=== PATIENT | female | born 1940 | race Caucasian/White ===

== ENCOUNTER 2020-09-24 10:48 | Outpatient (CLI) | payer MEDICARE, SELFPAY ==
[2020-09-24 11:13] LABS: Basophils Absolute Auto 0.1 K/mm3 (0.0-0.1); Basophils Percent Auto 1.2 % (0.2-1.2); Eosinophils Absolute Auto 0.1 K/mm3 (0-0.3); Eosinophils Percent Auto 1.4 % (0-4.4); Hematocrit 44.1 % (37.0-47.0); Hemoglobin 15.3 g/dL (12.0-15.0); Immature Granulocyte Absolute 0.02 K/mm3 (0.00-0.031); Immature Granulocyte Percent A 0.3 % (0-0.5); Lymphocytes Absolute Auto 1.76 K/mm3 (0.9-3.2); Lymphocytes Percent Auto 27.4 % (18.3-44.2); Mean Corpuscular HGB Conc 34.7 g/dl (32-36); Mean Corpuscular Hemoglobin 34.6 pg (26-34); Mean Corpuscular Volume 99.8 fl (80-100); Mean Platelet Volume 10.1 fl (7.4-10.4); Monocytes Absolute Auto 0.4 K/mm3 (0.1-0.6); Monocytes Percent Auto 5.5 % (2.6-8.5); Neutrophils Absolute Auto 4.1 K/mm3 (1.3-6.7); Neutrophils Percent Auto 64.2 % (45.5-73.1); Platelet Count Result 224 k/mm3 (150-375); Red Blood Count 4.42 M/mm3 (4.2-5.4); Red Cell Distribution Width 14.5 % (11.5-14.5); White Blood Count 6.4 K/mm3 (4.5-10.0)
[2020-09-24 11:23] LABS: Hemoglobin A1C 5.3 % (<5.7)
[2020-09-24 11:28] LABS: Rheumatoid Factor < 8.6 IU/ML (<12)
[2020-09-24 11:29] LABS: Alanine Aminotransferase 21 U/L (4-35); Albumin Level 4.6 g/dL (3.5-5.1); Alkaline Phosphatase 68 U/L (38-126); Anion Gap 10 mmol/L (8-16); Aspartate Amino Transferase 53 U/L (14-36); Bilirubin,Total 0.8 mg/dL (0.2-1.3); Blood Urea Nitrogen 17 mg/dL (7-17); Calcium 9.8 mg/dL (8.4-10.2); Carbon Dioxide 24 mmol/L (22-30); Chloride 96 mmol/L (98-107); Estimated Glomerular Filt Rate 48; Glucose 95 mg/dL (65-105); HDL Direct 103 mg/dL; Potassium 3.8 mmol/L (3.4-5.0); Sodium 130 mmol/L (137-145); Triglycerides 181 mg/dL (<150)
[2020-09-24 11:34] LABS: CRP < 0.5 mg/dL (<1.0)
[2020-09-24 11:37] LABS: LDL Cholesterol Direct 190 mg/dL
[2020-09-24 11:38] LABS: Erythrocyte Sedimentation Rate 14 mm/hr (0-20)
[2020-09-24 11:44] LABS: Cholesterol 338 mg/dL (0-200)
[2020-09-24 12:22] LABS: Free T4 Free Thyroxine < 0.07 ng/mL (0.78-2.19)
[2020-09-24 12:26] LABS: Vitamin D 25 Hydroxy < 12.8 ng/mL
[2020-09-26 06:09] LABS: Triiodothyronine T3 Free <0.5 pg/mL (2.3-4.2)
== END 2020-09-24 10:49 | disposition home or self-care (01) ==
LOC: ANHLAB 10:49
PROVIDERS: PCP Internal Medicine; Visit Provider Clinical Nurse Specialist
DX: Z13.228 Encounter for screening for other metabolic disorders (principal); E06.3 Autoimmune thyroiditis; R73.09 Other abnormal glucose; M25.50 Pain in unspecified joint; E55.9 Vitamin D deficiency, unspecified
CPT/HCPCS: 36415; 80053; 80061; 82306; 83036; 84439; 84443; 84481; 85025; 85652; 86038; 86140; 86430; 86769

== ENCOUNTER 2021-11-03 20:27 | Observation (INO) | payer MEDICARE, SELFPAY ==
[2021-11-03] VITALS (7 sets, daily range): BP systolic 98–131; BP diastolic 69–86; PULSE 75–93; RESP 14–18; TEMP 35.7–36.5; O2SAT 92–99; BMI 50.3
--- NOTE | ~2021-11-03 | XR_ITS ---
XR knee LT min 4V 11/03/2021 22:50 Indication: Left knee pain Procedure: 4 views left knee Comparison: 07/19/2017 Findings: There is moderate-severe osteoarthritis of the left knee. Small joint effusion. No acute fr acture or traumatic malalignment. Impression: 1: Progression of moderate-severe tricompartment osteoarthritis. 2: Small knee effusion. Reviewed, dictated and finalized at location A. E MAN Impression: 1: Progression of moderate-severe tricompartment osteoarthritis. 2: Small knee effusion.
--- NOTE | ~2021-11-03 | XR_ITS ---
EXAMINATION: XR chest 1V portable INDICATION: Shortness of breath TECHNIQUE: Portable AP chest at 2051 hours COMPARISON: 08/17/2017 FINDINGS: The patient is rotated. The lungs are free of acute opacities. There is no pleural effusion or pneumothorax. The cardiomediastinal silhouette is normal. There is chronic subsegmental atelectas is in the left lung base. IMPRESSION: 1. No acute cardiopulmonary abnormality. Reviewed, dictated and finalized at location F. OW REFINER
--- NOTE | ~2021-11-03 | CT_ITS ---
EXAMINATION: CTA chest PE protocol DATE: 11/04/2021 07:24 MAIL DISTRIBUTION SCHEME EXAMINER INDICATION: Shortness of breath TECHNIQUE: Computed tomographic angiography (CTA) of the chest was performed with 100 mL Omnipaque-35 0 intravenous contrast. The dose-length product was 890.41 mGy-cm. Maximum intensity projection 3D-re constructions of the aorta and other arteries were constructed by the technologist on a separate work station. Automated exposure control and iterative reconstruction technique were employed. COMPARISON: Chest dated 06/03/2022 FINDINGS: Study is technically adequate without evidence for pulmonary embolism. There is atheroscler osis of the aorta. Small pericardial effusion. There are surgical changes at the gastric fundus. No s ignificant pleural effusion. No thoracic lymphadenopathy. There is dependent atelectasis. No endobron chial lesion. No focal pneumonia, edema. IMPRESSION: 1. No evidence for pulmonary embolism. 2: Cardiomegaly with small pericardial effusion. Reviewed, dictated and finalized at location A. DISTRIBUTION SCHEME EXAMINER
--- NOTE | 2021-11-03 20:38 | ECG_ITS ---
Measurements Intervals [place] Rate: 91 P: 89 CA: 212 QRS: -3 QRSD: 85 T: 116 QT: 327 QTc: 404 Interpretive Statements SINUS OR ECTOPIC ATRIAL RHYTHM WITH FIRST DEGREE AV BLOCK LOW QRS VOLTAGE IN PRECORDIAL LEADS INFERIOR INFARCT, AGE INDETERMINATE ST-T WAVE ABNORMALITY IN HIGH LATERAL LEADS- CONSIDER ISCHEMIA BASELINE ARTIFACT- I, II, III, AVR, AVL, AVF, V1-V2 ABNORMAL ECG Electronically Signed On 11-04-2021 15:04:48 SOLO MUSICIAN by Feroz Kang D.O.
--- NOTE | 2021-11-03 20:54 | ED.GENADULT ---
HPI - General Adult General Chief complaint: Shortness of Breath/Dyspnea Stated complaint: SOB Time Seen by Provider: 11/03/21 20:30 History of Present Illness HPI narrative: 81-year-old female presents to the emergency department for evaluation of generalized weakness. Patient states she was sitting on her toilet and had onset of generalized weakness and was unable to get off of the toilet. Patient did call EMS for assistance. Upon arrival to the emerge department patient had a pulse ox of 88% on room air. Patient is not normally on oxygen. Patient complains of increased generalized weakness. Patient does report increased shortness of breath and dizziness. In discussion with the family they state that she already had her ENT follow-up and she is now scheduled to follow-up with a dynamic etching processor on Thursday. ENT diagnosis with that she had some edema of her lingular tonsils no other abnormality was noted. They state that they feel that she needs physical therapy and Occupational Therapy due to physical deconditioning. They also feel that her generalized weakness has worsened over the last few days and they were suspicious of a urinary tract infection. The patient is requesting admission with disposition to a assisted facility for PT and OT. Patient feels that she has physical deconditioning and needs placement at this time. Related Data Allergies Allergy/AdvReac Type Severity Reaction Status Date / Time No Known Allergies Allergy Verified 11/03/21 20:39 Review of Systems Review of Systems: CONSTITUTIONAL: Increased generalized weakness EYES: Denies visual changes, redness, or discharge. ENT: Denies rhinorrhea, congestion, sore throat, or otalgia. CARDIOVASCULAR: Denies chest pain, palpitations, or edema. RESPIRATORY: Intermittent shortness of breath. GASTROINTESTINAL: Denies abdominal pain, nausea, vomiting, or diarrhea. GENITOURINARY: Denies dysuria or hematuria. SKIN: Denies rash or itching. MUSCULOSKELETAL: Acute on chronic left knee pain NEUROLOGIC: Denies headache, numbness, or weakness. PSYCHIATRIC: Denies anxiety or depression. [facility] Past Medical History Medical History (Updated 11/04/21 @ 08:10 by AUDREY Sweeney) Chronic kidney disease Stage III with baseline creatinine between 1.1 and 1.2. Hyperlipidemia Hypertriglyceridemia Hypothyroidism, acquired, autoimmune Lower back pain Osteoarthritis of knees, bilateral Severe medial compartmental osteoarthritis Osteoarthritis of left hip Psoriasis Surgical History Surgical History (Updated 11/04/21 @ 03:13 by Rina Gonzalez DO) H/O: hysterectomy 1985 History of Nestor fundoplication (~2003) To repair a large esophageal hernia Hx of removal of ovary 1986 Family History Family History (Updated 11/04/21 @ 03:15 by Rina Gonzalez DO) Mother , At 89 years old Cerebrovascular accident Father , At 92 years old COPD (chronic obstructive pulmonary disease) Sibling Heart disease Cancer Social History Social History (Updated 11/04/21 @ 03:15 by Rina Gonzalez DO) Social History: She has been for over 50 years. 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 Her is 96 years old and still hold his medical license. They have 1 son. Code status: Full code Surrogate decision maker: Rancho Bhatia (son) Smoking status: Never smoker Alcohol intake: former Alcohol use details: She used to drink alcohol in moderation in social situations. She has not had an alcoholic beverage since 2019. Substance use: never Spiritual care concerns: No Exam Narrative: APPEARANCE: Well appearing, no pain, no distress, well-nourished. HEAD: normocephalic, atraumatic. EYES: PERRLA/EOMI, conjunctivae clear. NOSE: Normal no drainage EARS:TMS clear with good light reflex. THROAT: Pharynx clear, no exudate. NECK: Supple. No adenopathy, no masses. RESPIRATORY: Airway patent, respiration
--- NOTE | 2021-11-03 21:08 | PC.NURSE ---
CYDNEY sent to [facility] for records
[2021-11-03 21:26] LABS: Basophils Absolute Auto 0.1 K/mm3 (0.0-0.1); Basophils Percent Auto 0.5 % (0.2-1.2); Eosinophils Absolute Auto 0.1 K/mm3 (0-0.3); Eosinophils Percent Auto 0.5 % (0-4.4); Hematocrit 42.5 % (37.0-47.0); Hemoglobin 14.3 g/dL (12.0-15.0); Immature Granulocyte Absolute 0.07 K/mm3 (0.00-0.031); Immature Granulocyte Percent A 0.5 % (0-0.5); Lymphocytes Percent Auto 9.3 % (18.3-44.2); Mean Corpuscular HGB Conc 33.6 g/dl (32-36); Mean Corpuscular Hemoglobin 32.1 pg (26-34); Mean Corpuscular Volume 95.5 fl (80-100); Mean Platelet Volume 10.5 fl (7.4-10.4); Monocytes Absolute Auto 0.4 K/mm3 (0.1-0.6); Monocytes Percent Auto 2.9 % (2.6-8.5); Neutrophils Absolute Auto 11.1 K/mm3 (1.3-6.7); Neutrophils Percent Auto 86.3 % (45.5-73.1); Platelet Count Result 317 k/mm3 (150-375); Red Blood Count 4.45 M/mm3 (4.2-5.4); Red Cell Distribution Width 13.6 % (11.5-14.5); White Blood Count 12.9 K/mm3 (4.5-10.0)
[2021-11-03 21:48] LABS: Alanine Aminotransferase 19 U/L (4-35); Albumin Level 4.5 g/dL (3.5-5.1); Alkaline Phosphatase 61 U/L (38-126); Anion Gap 13 mmol/L (8-16); Aspartate Amino Transferase 37 U/L (14-36); Blood Urea Nitrogen 22 mg/dL (7-17); Calcium 9.4 mg/dL (8.4-10.2); Carbon Dioxide 22 mmol/L (22-30); Chloride 97 mmol/L (98-107); Estimated CRCL calculation 41 ml/min; Estimated Glomerular Filt Rate 43; Glucose 211 mg/dL (65-110); Sodium 132 mmol/L (137-145)
[2021-11-03 22:17] LABS: Add Urine Microscopic? YES; Appearance Urine Clear (Clear); Bilirubin Urine Negative (Negative); Blood Urine 1+ (Negative); Color Urine Yellow (Yellow); Glucose Urine UA Negative (Negative); Ketones Urine Trace mg/dL (Negative); Leukocyte Esterase Ur Negative LEU/UL (Negative); Nitrate Urine Negative (Negative); Protein Urine 1+ mg/dL (Negative); RBC Urine 0-2 /hpf (0-2); Specific Grav Ur 1.015 (1.001-1.035); Urobilinogen Urine Negative mg/dL (<2.0); WBC Urine 0-3 /hpf
[2021-11-03 22:48] LABS: SARS-CoV-2 RNA PCR Negative
--- NOTE | 2021-11-03 23:48 | ADMGEN ---
This patient, Annel Bhatia, was admitted to Medical Room 247-. Patient/family oriented to hospital policies and general routines including ID bracelet, bed and alarms, visiting hours, pain management, procedures, bathroom and other care routines, personal items, smoking policy, room service/diet, and visiting hours. Information on how to activate the Rapid Response Team has been discussed. Patient/Family are encouraged to report perceived risks to care and to ask questions if they do not understand what they are told or what they should do.
--- NOTE | 2021-11-04 02:50 | PM.IMHP ---
H&P: HPI History of Present Illness Date/Time: 11/04/21 02:50 Chief Complaint: Weakness Narrative: 81-year-old female past medical history of psoriasis, morbid obesity, likely obstructive sleep apnea, and severe medial compartment osteoarthritis of her knees who presented to the ER from home with multiple complaints. The patient reports that she has had decreased physical activity for for 5 years due to knee pain. She states that she is too large to have knee replacements. She was evaluated by Orthopedic surgery in 2019 who rim I commended she lose weight down to 190 lb to be considered for surgery. She states she is unable lose weight could she cannot be active and her weakness has progressed. She ambulates with a walker. Today she had more more severe pain in her left knee and was not able to compensate for weakness and was unable to get up off the toilet unassisted. She also reports some history of edema in her throat for which she is being evaluated at [facility] with ENT. The patient had a consult note in the computer from [facility] that reports the patient has lingular tonsillar hypertrophy. She has also had evaluation by pulmonology at [facility] and is supposed to follow-up on the . She reports shortness of breath and a small ongoing for months but has not changed significantly. Her shortness of breath is at rest and she reports orthopnea. She reports that her mobility is limited to the point that she cannot get up on her bed at home because it is too tall. She has been sleeping on the couch in the family room for what sounds like a long time. She denies any chest pain or palpitations. She does not have any significant lower extremity swelling. She states she had an echocardiogram several years ago with heart care group. Patient had not seen a primary care physician in many years until August 2021 when she diagnosed with hypothyroidism. She has chronic hearing loss and is being evaluated by ENT as outpatient. She has had chronic intermittent urinary incontinence for the last couple of years. She reports that most the time she will not even feel the urge and she has already lost control of her bladder. She has also been having enuresis. She denies any dysuria or hematuria. She has not been having any fevers or chills. She reports occasional episodes of explosive diarrhea but this is been intermittent and ongoing since 2013. He has been having a pulling stroke or stretching sensation across her lower abdomen that occurs depending on her body position. This discomfort is been ongoing for a long time is unchanged from baseline. She has received a COVID vaccine but has not received her booster. She thinks that she probably had COVID back when COVID started but never had confirmatory testing. Review of Systems Review of Systems: 12 systems were reviewed with pertinent positives and negatives per HPI. Except as documented in the HPI, all other systems were reviewed and are negative. [facility] Past Medical History Medical History (Updated 11/04/21 @ 03:28 by Rina Gonzalez DO) Chronic kidney disease Stage III with baseline creatinine between 1.1 and 1.2. Hyperlipidemia Hypertriglyceridemia Hypothyroidism, acquired, autoimmune Lower back pain Osteoarthritis of knees, bilateral Severe medial compartmental osteoarthritis Osteoarthritis of left hip Psoriasis Surgical History Surgical History (Updated 11/04/21 @ 03:13 by Rina Gonzalez DO) H/O: hysterectomy 1984 History of Nestor fundoplication (~2003) To repair a large esophageal hernia Hx of removal of ovary 1986 Family History Family History Mother , At 89 years old Cerebrovascular accident Father , At 92 years old COPD (chronic obstructive pulmonary disease) Sibling Heart disease Cancer Social History Social History (Updated 11/04/21 @ 03:15 by Rina Gonzalez DO) Social History: She has
[2021-11-04 05:38] LABS: Hemoglobin A1C 5.5 % (<5.7)
[2021-11-04 05:40] LABS: Anion Gap 13 mmol/L (8-16); Blood Urea Nitrogen 21 mg/dL (7-17); Calcium 9.4 mg/dL (8.4-10.2); Carbon Dioxide 22 mmol/L (22-30); Chloride 96 mmol/L (98-107); Estimated Glomerular Filt Rate 53; Glucose 76 mg/dL (65-110); Potassium 3.6 mmol/L (3.4-5.0); Sodium 131 mmol/L (137-145)
[2021-11-04 06:00] VITALS: BP 139/62; PULSE 67; RESP 18; TEMP 36.6; O2SAT 94
[2021-11-04] MEDS: LEVOTHYROXINE SODIUM 50 MCG TABLET PO (06:12)
[2021-11-04 06:38] LABS: NT Pro B Type Natriuretic Pept 481 pg/mL (5-100)
[2021-11-04 07:08] LABS: Free T4 Free Thyroxine Reflex < 0.07 ng/dL (0.78-2.19)
[2021-11-04] MEDS: ENOXAPARIN 40 MG/0.4 ML SYRINGE SUB-Q ×2 (08:08→21:47)
[2021-11-04] MEDS: EUCERIN CREAM 120 GM JAR 1 APPLIC TOPICAL ×2 (08:08→16:58)
[2021-11-04 08:18] VITALS: O2SAT 95
--- NOTE | 2021-11-04 08:45 | PM.IMPN ---
Progress Note: A&P Assessment and Plan (1) Osteoarthritis of knees, bilateral: Code(s): M17.0 - Bilateral primary osteoarthritis of knee Status: Acute Assessment and Plan: X-ray showed progression of moderate-severe tricompartment osteoarthritis ortho consult thank you for your help Pain regimen tylenol, morphine, and norco ordered Cortisone shots this am PT/OT SNF placement (2) General weakness: Code(s): R53.1 - Weakness Status: Acute Assessment and Plan: Reported weakness and decline in function Secondary to severe morbid obesity and chronic deconditioning Would like placement in a rehab facility and eventual home physical therapy Reports knee immobility cortisone shot today Ortho consult today PT/OT (3) Adult failure to thrive: Code(s): R62.7 - Adult failure to thrive Status: Acute Assessment and Plan: See above (4) Elevated glucose level: Code(s): R73.09 - Other abnormal glucose Status: Acute Assessment and Plan: Glucose upon arrival was 211 This morning 76 A1c 5.5 Trend glucose levels Seems to be controlled at this time (5) Obstructive sleep apnea: Code(s): G47.33 - Obstructive sleep apnea (adult) (pediatric) Status: Acute Assessment and Plan: Secondary to chronic obesity Apnea link ordered Consider further workup outpatient (6) Morbid obesity with BMI of 50.0-59.9, adult: Code(s): E66.01 - Morbid (severe) obesity due to excess calories; Z68.43 - Body mass index [BMI] 50.0-59.9, adult Status: Acute Assessment and Plan: Life style modification education provided Neck Pinner consult Low fat/Calorie diet Consider adding a GLP-1 at discharge (7) Cardiomegaly: Code(s): I51.7 - Cardiomegaly Status: Acute Assessment and Plan: Chest xray and CTA show cardiomegaly BNP elevated at 481 Echo ordered and pending Daily weights Strict I&O One time dose of 20mg IV lasix (8) Shortness of breath: Code(s): R06.02 - Shortness of breath Status: Acute Assessment and Plan: Multi contributory finding including obesity, immobility, cardiomegaly Echo ordered and pending Try one dose of lasix to see if that helps Trend SPO2 (9) Hypothyroidism, acquired, autoimmune: Code(s): E06.3 - Autoimmune thyroiditis Status: Acute Assessment and Plan: TSH 43.200 T4 <0.07 Consider increasing her home levothyroxine from 50mcg to 75mcg Recheck in 4-6 weeks Time Spent With Patient Time with patient: Greater than 35 minutes Subjective Date/time seen: 11/04/21 08:45 Interval history: Date/Time 11/04/21 0250 Narrative: 81-year-old female past medical history of psoriasis, morbid obesity, likely obstructive sleep apnea, and severe medial compartment osteoarthritis of her knees who presented to the ER from home with multiple complaints. The patient reports that she has had decreased physical activity for for 5 years due to knee pain. She states that she is too large to have knee replacements. She was evaluated by Orthopedic surgery in 2019 who rim I commended she lose weight down to 190 lb to be considered for surgery. She states she is unable lose weight could she cannot be active and her weakness has progressed. She ambulates with a walker. Today she had more more severe pain in her left knee and was not able to compensate for weakness and was unable to get up off the toilet unassisted. She also reports some history of edema in her throat for which she is being evaluated at [facility] with ENT. The patient had a consult note in the computer from [facility] that reports the patient has lingular tonsillar hypertrophy. She has also had evaluation by pulmonology at [facility] and is supposed to follow-up on the . She reports shortness of breath and a small ongoing for months bu
--- NOTE | 2021-11-04 08:45 | P.PNIM_ITS ---
Progress Note: A&P Assessment and Plan (1) Osteoarthritis of knees, bilateral: Code(s): M17.0 - Bilateral primary osteoarthritis of knee Status: Acute Assessment and Plan: * X-ray showed progression of moderate-severe tricompartment osteoarthritis * ortho consult thank you for your help * Pain regimen tylenol, morphine, and norco ordered * Cortisone shots this am * PT/OT * SNF placement (2) General weakness: Code(s): R53.1 - Weakness Status: Acute Assessment and Plan: * Reported weakness and decline in function * Secondary to severe morbid obesity and chronic deconditioning * Would like placement in a rehab facility and eventual home physical therapy * Reports knee immobility * cortisone shot today * Ortho consult today * PT/OT (3) Adult failure to thrive: Code(s): R62.7 - Adult failure to thrive Status: Acute Assessment and Plan: * See above (4) Elevated glucose level: Code(s): R73.09 - Other abnormal glucose Status: Acute Assessment and Plan: * Glucose upon arrival was 211 * This morning 76 * A1c 5.5 * Trend glucose levels * Seems to be controlled at this time (5) Obstructive sleep apnea: Code(s): G47.33 - Obstructive sleep apnea (adult) (pediatric) Status: Acute Assessment and Plan: * Secondary to chronic obesity * Apnea link ordered * Consider further workup outpatient (6) Morbid obesity with BMI of 50.0-59.9, adult: Code(s): E66.01 - Morbid (severe) obesity due to excess calories; Z68.43 - Body mass index [BMI] 50.0-59.9, adult Status: Acute Assessment and Plan: * Life style modification education provided * An/Ssn 2 4 Operator consult * Low fat/Calorie diet * Consider adding a GLP-1 at discharge (7) Cardiomegaly: Code(s): I51.7 - Cardiomegaly Status: Acute Assessment and Plan: * Chest xray and CTA show cardiomegaly * BNP elevated at 481 * Echo ordered and pending * Daily weights * Strict I&O * One time dose of 20mg IV lasix (8) Shortness of breath: Code(s): R06.02 - Shortness of breath Status: Acute Assessment and Plan: * Multi contributory finding including obesity, immobility, cardiomegaly * Echo ordered and pending * Try one dose of lasix to see if that helps * Trend SPO2 (9) Hypothyroidism, acquired, autoimmune: Code(s): E06.3 - Autoimmune thyroiditis Status: Acute Assessment and Plan: * TSH 43.200 * T4 <0.07 * Consider increasing her home levothyroxine from 50mcg to 75mcg * Recheck in 4-6 weeks Time Spent With Patient Time with patient: Greater than 35 minutes Subjective Date/time seen: 11/04/21 08:45 Interval history: Date/Time 11/04/21 0250 Narrative: 81-year-old female past medical history of psoriasis, morbid obesity, likely obstructive sleep apnea, and severe medial compartment osteoarthritis of her knees who presented to the ER from home with multiple complaints. The patient reports that she has had decreased physical activity for for 5 years due to knee pain. She states that she is too large to have knee replacements. She was evaluated by Orthopedic surgery in 2019 who rim I commended she lose weight down to 190 lb to be considered for surgery. She states she is unable lose weight could she cannot be ac
[2021-11-04] MEDS: MORPHINE SULFATE (*CRX) 2 MG/ML INJ 1 MG IV PUSH (09:48)
--- NOTE | 2021-11-04 11:07 | PCDIET ---
Nutrition consult for Morbid Obesity. See Nutritional Teaching Intervention. Thank you for the consult.
--- NOTE | 2021-11-04 11:11 | PCPTNOTE ---
Attempted PT eval - patient refused due to pain. RN aware
[2021-11-04] MEDS: FUROSEMIDE INJ 40 MG/4 ML VIAL 20 MG IV PUSH (12:33)
[2021-11-04 14:00] VITALS: BP 100/61; PULSE 69; RESP 18; TEMP 36.8; O2SAT 94
[2021-11-04] MEDS: HYDROcodone/acetaminophen (*CRX) 5-325 MG TABLET 1 TAB PO (15:50)
--- NOTE | 2021-11-04 16:55 | PM.CNOR ---
Assessment and Plan Assessment and plan (1) Osteoarthritis of knees, bilateral: Code(s): M17.0 - Bilateral primary osteoarthritis of knee Status: Acute Assessment and Plan: Severe bilateral knee osteoarthritis. Extremely obese. Difficulty mobilizing. Acute on chronic symptoms may be secondary to inflammatory arthropathy such as gout or pseudogout. I recommend bilateral intra-articular steroid injections. Risks discussed. Plan on the injections to be performed tomorrow morning. History of Present Illness HPI Consult date: 11/04/21 Consult reason: joint pain Chief complaint: Generalized weakness, shortness of breath, left kn Narrative: 81-year-old female complains of chronic bilateral knee pain. Acute severe exacerbation recently. History of chronic arthritic pains treated with cortisone injections in the past. She was unable to perform her physical therapy and get out of bed today. No other associated symptoms. No other new joint pains. Review of Systems Review of Systems: All systems reviewed & are unremarkable except as noted in HPI and below PMFSH Past Medical History Medical History Chronic kidney disease Stage III with baseline creatinine between 1.1 and 1.2. Hyperlipidemia Hypertriglyceridemia Hypothyroidism, acquired, autoimmune Lower back pain Osteoarthritis of knees, bilateral Severe medial compartmental osteoarthritis Osteoarthritis of left hip Psoriasis Surgical History Surgical History H/O: hysterectomy 1984 History of Nestor fundoplication (~2003) To repair a large esophageal hernia Hx of removal of ovary 1986 Family History Family History Mother , At 89 years old Cerebrovascular accident Father , At 92 years old COPD (chronic obstructive pulmonary disease) Sibling Heart disease Cancer Social History Social History Social History: She has been for over 50 years. 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 Her is 96 years old and still hold his medical license. They have 1 son. Code status: Full code Surrogate decision maker: Rancho Bhatia (son) Smoking status: Never smoker Alcohol intake: former Alcohol use details: She used to drink alcohol in moderation in social situations. She has not had an alcoholic beverage since 2019. Substance use: never Spiritual care concerns: No Meds Home Medications and Allergies Home Medications Medication Instructions Recorded Confirmed Type levothyroxine 50 mcg tablet 50 mcg PO DAILY #90 tablet 09/24/20 11/04/21 Rx Allergies Allergy/AdvReac Type Severity Reaction Status Date / Time No Known Allergies Allergy Verified 11/03/21 20:39 Vital Signs Vital Signs - 24 hr 11/03/21 20:31 11/03/21 21:50 11/03/21 21:51 Temperature 35.9 C L 35.7 C L Pulse Rate 93 84 85 Respiratory Rate 17 14 Blood Pressure 105/69 98/75 L Pulse Oximetry 92 95 11/03/21 21:52 11/03/21 22:45 11/03/21 23:26 Temperature 36.5 C Pulse Rate 82 75 Respiratory Rate 18 18 Blood Pressure 115/82 131/86 Pulse Oximetry 94 99 93 11/03/21 23:57 11/04/21 06:00 11/04/21 08:18 Temperature 36.0 C L 36.6 C Pulse Rate 78 67 Respiratory Rate 18 18 Blood Pressure 123/70 139/62 Pulse Oximetry 97 94 95 11/04/21 14:00 Temperature 36.8 C Pulse Rate 69 Respiratory Rate 18 Blood Pressure 100/61 Pulse Oximetry 94 Exam Narrative: Extremely obese. Alert and oriented. No distress. Bilateral knees with exquisite tenderness. Mild effusion. No warmth or erythema. No mass or other lesions. Distal edema. Purplish discoloration of both forefeet. Wiggles toes. Brief musculoskeletal survey normal. I reviewed the radiogr
[2021-11-04 20:30] VITALS: PULSE 70; O2SAT 94
[2021-11-04 22:00] VITALS: BP 109/68; PULSE 72; RESP 14; TEMP 36.7; O2SAT 97
--- NOTE | 2021-11-05 | ECHO_ITS ---
Patient Info Name: Annel Bhatia Age: 81 years : 1940 Gender: Female Ht: 59 in Wt: 249 lbs BSA: 2.25 m2 HR: 66 bpm BP: 112 / 65 mmHg Technical Quality: Good Exam Date: 11/05/2021 1:10 PM Exam Location: [facility] Patient Status: Outpatient Admit Date: 11/03/2021 Staff Ordering Physician: Thiago Gallardo Office Technology Professor: Mazin Grimes RDCS, RT Attending Provider: Rina Gonzalez DO Referring Physician: Sami STRICKLAND; Exam Type: CA echo dop color flow w con Study Info Indications I50.9 - Heart failure, unspecified Complete two-dimensional, color flow and Doppler transthoracic echocardiogram is performed with contrast to opacify the left ventricle and to improve the deliniation of the left ventricle endocardial borders. Summary 1. Left ventricular chamber dimension is normal. 2. Definity contrast administered improved wall motion interpretation. 3. Left ventricular systolic function is normal, estimated at 65-70%. 4. There is mildly increased left ventricular wall thickness. 5. The left ventricular diastolic function is grade I diastolic dysfunction. 6. E/e' 13 is mildly elevated. 7. Left atrial chamber dimension is moderately enlarged. 8. There is mild aortic valve sclerosis. 9. No pulmonary hypertension, estimated pulmonary arterial systolic pressure is 24 mmHg. Left Ventricle Definity contrast administered improved wall motion interpretation. E/e' 13 is mildly elevated. Left ventricular chamber dimension is normal. Left ventricular systolic function is normal, estimated at 65-70%. There is mildly increased left ventricular wall thickness. The left ventricular diastolic function is grade I diastolic dysfunction. Right Ventricle Right ventricular chamber dimension is normal. Right ventricular systolic function is normal. Left Atria Left atrial chamber dimension is moderately enlarged. Right Atria Right atrial chamber dimension is normal. Aortic Valve The aortic valve is trileaflet. There is mild aortic valve sclerosis. There is no aortic valve stenosis. There is no aortic valve regurgitation. Pulmonic Valve There is no pulmonic regurgitation. Mitral Valve There is no mitral valve stenosis. There is no mitral valve regurgitation. Tricuspid Valve There is no tricuspid valve regurgitation. No pulmonary hypertension, estimated pulmonary arterial systolic pressure is 24 mmHg. Pericardium/Pleural There is no pericardial effusion. Inferior Vena Cava Normal inferior vena cava with >50% collapse upon inspiration consistent with normal right atrial pressure, 5 mmHg. Aorta The aortic root size at the sinus of Valsalva is normal. Left Ventricular Outflow Tract Name Value Normal LVOT 2D LVOT Diameter 1.97 cm LVOT Doppler LVOT Peak Gradient 5 mmHg LVOT Mean Gradient 2 mmHg LVOT VTI 19.60 cm LVOT VTI/AV VTI Ratio 0.67 LVOT Stroke Volume 59.83 ml LVOT CO 4.01 l/min LVOT CI
--- NOTE | 2021-11-05 02:33 | PCRCNOTE ---
Apnea link was not done last night (11/04/21) due to patient taking a narcotic sleep aid. That was believed to be a contraindication. The RN informed me pt would not be on that med [facility] (11/05/21), therefore, the apnea link will be done then.
[2021-11-05 05:22] LABS: Basophils Absolute Auto 0.1 K/mm3 (0.0-0.1); Basophils Percent Auto 1.1 % (0.2-1.2); Eosinophils Absolute Auto 0.2 K/mm3 (0-0.3); Eosinophils Percent Auto 2.7 % (0-4.4); Hemoglobin 13.4 g/dL (12.0-15.0); Immature Granulocyte Absolute 0.02 K/mm3 (0.00-0.031); Immature Granulocyte Percent A 0.3 % (0-0.5); Lymphocytes Absolute Auto 1.85 K/mm3 (0.9-3.2); Lymphocytes Percent Auto 24.8 % (18.3-44.2); Mean Corpuscular HGB Conc 31.2 g/dl (32-36); Mean Corpuscular Hemoglobin 31.8 pg (26-34); Mean Corpuscular Volume 102.1 fl (80-100); Mean Platelet Volume 10.3 fl (7.4-10.4); Monocytes Absolute Auto 0.4 K/mm3 (0.1-0.6); Monocytes Percent Auto 5.8 % (2.6-8.5); Neutrophils Absolute Auto 4.9 K/mm3 (1.3-6.7); Neutrophils Percent Auto 65.3 % (45.5-73.1); Platelet Count Result 233 k/mm3 (150-375); Red Blood Count 4.21 M/mm3 (4.2-5.4); Red Cell Distribution Width 13.7 % (11.5-14.5); White Blood Count 7.5 K/mm3 (4.5-10.0)
[2021-11-05] MEDS: HYDROcodone/acetaminophen (*CRX) 5-325 MG TABLET 1 TAB PO (05:54)
[2021-11-05] MEDS: LEVOTHYROXINE SODIUM 75 MCG TABLET PO (05:55)
[2021-11-05 06:00] VITALS: BP 112/65; PULSE 64; RESP 20; TEMP 36.6; O2SAT 99
[2021-11-05 06:03] LABS: Alanine Aminotransferase 19 U/L (4-35); Albumin Level 4.3 g/dL (3.5-5.1); Alkaline Phosphatase 28 U/L (38-126); Anion Gap 18 mmol/L (8-16); Aspartate Amino Transferase 46 U/L (14-36); Bilirubin,Total 1.5 mg/dL (0.2-1.3); Blood Urea Nitrogen 22 mg/dL (7-17); Calcium 8.1 mg/dL (8.4-10.2); Carbon Dioxide 13 mmol/L (22-30); Chloride 97 mmol/L (98-107); Estimated Glomerular Filt Rate > 60; Glucose 98 mg/dL (65-110); Magnesium 2.1 mg/dL (1.6-2.3); Sodium 128 mmol/L (137-145)
--- NOTE | 2021-11-05 07:15 | PM.IMPN ---
Progress Note: A&P Assessment and Plan (1) Osteoarthritis of knees, bilateral: Code(s): M17.0 - Bilateral primary osteoarthritis of knee Status: Acute Assessment and Plan: X-ray showed progression of moderate-severe tricompartment osteoarthritis ortho consult thank you for your help Pain regimen tylenol, morphine, and norco ordered Cortisone shots this am PT/OT SNF placement (2) General weakness: Code(s): R53.1 - Weakness Status: Acute Assessment and Plan: Reported weakness and decline in function Secondary to severe morbid obesity and chronic deconditioning Would like placement in a rehab facility and eventual home physical therapy Reports knee immobility cortisone shot today Ortho consult today PT/OT (3) Adult failure to thrive: Code(s): R62.7 - Adult failure to thrive Status: Acute Assessment and Plan: See above (4) Elevated glucose level: Code(s): R73.09 - Other abnormal glucose Status: Acute Assessment and Plan: Glucose upon arrival was 211 This morning 76 A1c 5.5 Trend glucose levels Seems to be controlled at this time (5) Obstructive sleep apnea: Code(s): G47.33 - Obstructive sleep apnea (adult) (pediatric) Status: Acute Assessment and Plan: Secondary to chronic obesity Apnea link ordered Consider further workup outpatient (6) Morbid obesity with BMI of 50.0-59.9, adult: Code(s): E66.01 - Morbid (severe) obesity due to excess calories; Z68.43 - Body mass index [BMI] 50.0-59.9, adult Status: Acute Assessment and Plan: Life style modification education provided Production Wood Craftsman consult Low fat/Calorie diet Consider adding a GLP-1 at discharge (7) Cardiomegaly: Code(s): I51.7 - Cardiomegaly Status: Acute Assessment and Plan: Chest xray and CTA show cardiomegaly BNP elevated at 481 Echo ordered and pending Daily weights Strict I&O Hold on diuretics due to low sodium (8) Shortness of breath: Code(s): R06.02 - Shortness of breath Status: Acute Assessment and Plan: Multi contributory finding including obesity, immobility, cardiomegaly Echo ordered and pending Trend SPO2 (9) Hypothyroidism, acquired, autoimmune: Code(s): E06.3 - Autoimmune thyroiditis Status: Acute Assessment and Plan: TSH 43.200 T4 <0.07 Consider increasing her home levothyroxine from 50mcg to 75mcg Recheck in 4-6 weeks (10) Hyponatremia: Code(s): E87.1 - Hypo-osmolality and hyponatremia Status: Acute Assessment and Plan: Na 128 this am Run urine studies Hold on diuretics for now Consider IV fluids Subjective Date/time seen: 11/05/21 07:15 Interval history: Date/Time 11/04/21 0250 Narrative: 81-year-old female past medical history of psoriasis, morbid obesity, likely obstructive sleep apnea, and severe medial compartment osteoarthritis of her knees who presented to the ER from home with multiple complaints. The patient reports that she has had decreased physical activity for for 5 years due to knee pain. She states that she is too large to have knee replacements. She was evaluated by Orthopedic surgery in 2019 who rim I commended she lose weight down to 190 lb to be considered for surgery. She states she is unable lose weight could she cannot be active and her weakness has progressed. She ambulates with a walker. Today she had more more severe pain in her left knee and was not able to compensate for weakness and was unable to get up off the toilet unassisted. She also reports some history of edema in her throat for which she is being evaluated at [facility] with ENT. The patient had a consult note in the computer from [facility] that reports the patient has lingular tonsillar hypertrophy. She has also had evaluation by pulmonology
--- NOTE | 2021-11-05 07:15 | P.PNIM_ITS ---
Progress Note: A&P Assessment and Plan (1) Osteoarthritis of knees, bilateral: Code(s): M17.0 - Bilateral primary osteoarthritis of knee Status: Acute Assessment and Plan: * X-ray showed progression of moderate-severe tricompartment osteoarthritis * ortho consult thank you for your help * Pain regimen tylenol, morphine, and norco ordered * Cortisone shots this am * PT/OT * SNF placement (2) General weakness: Code(s): R53.1 - Weakness Status: Acute Assessment and Plan: * Reported weakness and decline in function * Secondary to severe morbid obesity and chronic deconditioning * Would like placement in a rehab facility and eventual home physical therapy * Reports knee immobility * cortisone shot today * Ortho consult today * PT/OT (3) Adult failure to thrive: Code(s): R62.7 - Adult failure to thrive Status: Acute Assessment and Plan: * See above (4) Elevated glucose level: Code(s): R73.09 - Other abnormal glucose Status: Acute Assessment and Plan: * Glucose upon arrival was 211 * This morning 76 * A1c 5.5 * Trend glucose levels * Seems to be controlled at this time (5) Obstructive sleep apnea: Code(s): G47.33 - Obstructive sleep apnea (adult) (pediatric) Status: Acute Assessment and Plan: * Secondary to chronic obesity * Apnea link ordered * Consider further workup outpatient (6) Morbid obesity with BMI of 50.0-59.9, adult: Code(s): E66.01 - Morbid (severe) obesity due to excess calories; Z68.43 - Body mass index [BMI] 50.0-59.9, adult Status: Acute Assessment and Plan: * Life style modification education provided * Agricultural Agent consult * Low fat/Calorie diet * Consider adding a GLP-1 at discharge (7) Cardiomegaly: Code(s): I51.7 - Cardiomegaly Status: Acute Assessment and Plan: * Chest xray and CTA show cardiomegaly * BNP elevated at 481 * Echo ordered and pending * Daily weights * Strict I&O * Hold on diuretics due to low sodium (8) Shortness of breath: Code(s): R06.02 - Shortness of breath Status: Acute Assessment and Plan: * Multi contributory finding including obesity, immobility, cardiomegaly * Echo ordered and pending * Trend SPO2 (9) Hypothyroidism, acquired, autoimmune: Code(s): E06.3 - Autoimmune thyroiditis Status: Acute Assessment and Plan: * TSH 43.200 * T4 <0.07 * Consider increasing her home levothyroxine from 50mcg to 75mcg * Recheck in 4-6 weeks (10) Hyponatremia: Code(s): E87.1 - Hypo-osmolality and hyponatremia Status: Acute Assessment and Plan: * Na 128 this am * Run urine studies * Hold on diuretics for now * Consider IV fluids Subjective Date/time seen: 11/05/21 07:15 Interval history: Date/Time 11/04/21 0250 Narrative: 81-year-old female past medical history of psoriasis, morbid obesity, likely obstructive sleep apnea, and severe medial compartment osteoarthritis of her knees who presented to the ER from home with multiple complaints. The patient reports that she has had decreased physical activity for for 5 years due to knee pain. She states that she is too large to have knee replacements. She was evaluated by Orthopedic surgery
[2021-11-05] MEDS: EUCERIN CREAM 120 GM JAR 1 APPLIC TOPICAL ×2 (08:28→16:33)
[2021-11-05] MEDS: ENOXAPARIN 40 MG/0.4 ML SYRINGE SUB-Q ×2 (08:31→20:04)
--- NOTE | 2021-11-05 11:00 | PM.PNORT ---
Progress Note: A&P Assessment and Plan (1) Osteoarthritis of knees, bilateral: Code(s): M17.0 - Bilateral primary osteoarthritis of knee Status: Acute (2) Morbid obesity with BMI of 50.0-59.9, adult: Code(s): E66.01 - Morbid (severe) obesity due to excess calories; Z68.43 - Body mass index [BMI] 50.0-59.9, adult Status: Acute Assessment and Plan: Severe bilateral knee osteoarthritis. Extremely obese. Difficulty mobilizing. Acute on chronic symptoms may be secondary to inflammatory arthropathy such as gout or pseudogout. Bilateral intra-articular steroid injections today. Patient tolerated injections well. Risks discussed. Discharge planning to rehab/SNF in process. Subjective Subjective Date/Time Seen: 11/05/21 11:00 Patient resting comfortably in bed. No new symptoms. Severe pain in her knees. Left worse then right. Sensitive to the touch. Review of Systems Review of Systems: All systems reviewed & are unremarkable except as noted in HPI and below Exam Narrative: Extremely obese. Alert and oriented. No distress. Bilateral knees with exquisite tenderness. Mild effusion. No warmth or erythema. No mass or other lesions. Distal edema. Purplish discoloration of both forefeet. Wiggles toes. Brief musculoskeletal survey normal. I reviewed the radiographs which show severe varus arthrosis. Objective Data Vital Signs Vital Signs: Vital Signs - 24 hr 11/04/21 14:00 11/04/21 20:30 11/04/21 22:00 Temperature 98.2 F 98.0 F Pulse Rate 69 70 72 Respiratory Rate 18 14 Blood Pressure 100/61 109/68 Pulse Oximetry 94 94 97 11/05/21 06:00 Temperature 97.9 F Pulse Rate 64 Respiratory Rate 20 Blood Pressure 112/65 Pulse Oximetry 99 Intake/Output Intake/Output: Intake & Output 11/02/21 11/03/21 11/04/21 11/05/21 23:59 23:59 23:59 23:59 Intake Total 1930 420 Output Total 300 Balance 1930 120 Meds/Results Medications: Active Medications Generic Name Dose Route Start Last Admin Trade Name Freq PRN Reason Stop Dose Admin Acetaminophen 1,000 mg 11/04/21 09:06 Acetaminophen 500 Mg Tablet PO Q6H PRN Mild Pain (1-3) or Fever Hydrocodone Bitart/Acetaminophen 1 tab 11/04/21 09:06 11/05/21 05:54 Hydrocodone/Acetaminophen (*Crx) 5-325 Mg Tablet PO 1 tab Q6H PRN Administration Pain Rated 4-6 Enoxaparin Sodium 40 mg 11/04/21 09:00 11/05/21 08:31 Enoxaparin 40 Mg/0.4 Ml Syringe SUB-Q 40 mg Q12HR SANKET Administration Levothyroxine Sodium 75 mcg 11/05/21 06:30 11/05/21 05:55 Levothyroxine Sodium 75 Mcg Tablet PO 75 mcg DAILY@0630 SANKET Administration Miconazole Nitrate 1 applic 11/04/21 09:00 11/05/21 08:28 Miconazole 2% Antifungal Ointment 56 Gm TOPICAL 1 applic Q12HR SANKET Administration Morphine Sulfate 1 mg 11/04/21 09:06 11/04/21 09:48 Morphine Sulfate (*Crx) 2 Mg/Ml Inj IV PUSH 1 mg Q4H PRN Administration Severe Pain (7-10) Multi-Ingred Cream/Lotion/Oil/Oint 1 applic 11/04/21 09:00 11/05/21 08:28 Eucerin Cream 120 Gm Jar TOPICAL 1 applic BID SANKET Administration Perflutren Lipid Microsphere 0 ml 11/05/21 07:12 Perflutren Lipid Microspheres 1.5 Ml Vial Diluted To 10 Ml Total Volume IV PUSH ONCE PRN adequate visualization Protocol Radiology Results: ITS Impressions Chest X-Ray 11/03/21 21:00 IMPRESSION: 1. No acute cardiopulmonary abnormality. Knee X-Ray 11/04/21 06:39 Impression: 1: Progression of moderate-severe tricompartment osteoarthritis. 2: Small knee effusion. Chest CTA 11/04/21 07:24 IMPRESSION: 1. No evidence for pulmonary embolism. 2: Cardiomegaly with small pericardial effusion. Labs Labs: Laboratory Results - last 24 hr 11/05/21 11/05/21 05:04 05:04 WBC 7.5 RBC 4.21 Hgb 13.4 Hct 43.0 MCV 102.1 H D MCH 31.8 MCHC 31.2 L RDW 13.7 Plt Count 233 MPV 10.3 Immature Gran % (
--- NOTE | 2021-11-05 11:21 | PM.OP ---
Procedure Note - Brief Procedure Note - Brief Date of procedure: 11/05/21 Pre-op diagnosis: Generalized weakness, shortness of breath, left kn Surgeon: NAHOMY Cuello Joint Aspiration/Injection Bilateral knees: Pre-procedure care: Consent was obtained, Procedures/risks were explained, Questions were answered, Correct patient identified and Correct side and site confirmed Position: Laying Site Prepped: chlorhexidine Injection Details Bilateral knee using manual palpation Injection: Depo-Medrol 80 given to each knee Sterile Dressing: Storm and Adhesive Post Procedure: Patient tolerated the procedure well
[2021-11-05] MEDS: PERFLUTREN LIPID MICROSPHERES 1.5 ML VIAL DILUTED TO 10 ML TOTAL VOLUME IV PUSH (13:35)
--- NOTE | 2021-11-05 13:36 | IVDEFINITY ---
Prior to administration of IV Definity the patient was educated on the risks and benefits of the imaging enhancing agent including potential adverse side effects. The patient verbalized understanding. Allergies were verified. No exclusion criteria were identified and at least one of the following inclusion criteria were met: 1) physician request, 2) patient technically difficult to image (per the [place] [employer] of Echocardiography guidelines of two or more segments not discernable within the apical view), or 3) questionable left ventricular function. ?
[2021-11-05 13:59] VITALS: BP 119/73; PULSE 63; RESP 18; TEMP 36.2; O2SAT 95
[2021-11-05 17:56] LABS: Creatinine Urine 57.4 mg/dL; Urea Random Urine 363 MG/DL
[2021-11-05 18:07] LABS: Sodium Urine Random 13 meq/L
[2021-11-05 19:39] VITALS: BP 114/54; PULSE 67; RESP 17; TEMP 37.1; O2SAT 95
[2021-11-05 22:36] VITALS: O2SAT 95
[2021-11-06 04:49] VITALS: BP 142/86; PULSE 72; RESP 16; TEMP 36.6; O2SAT 97
[2021-11-06] MEDS: LEVOTHYROXINE SODIUM 75 MCG TABLET PO (05:35)
[2021-11-06] MEDS: MORPHINE SULFATE (*CRX) 2 MG/ML INJ 1 MG IV PUSH (05:38)
[2021-11-06 05:53] LABS: Basophils Absolute Auto 0.1 K/mm3 (0.0-0.1); Basophils Percent Auto 0.6 % (0.2-1.2); Eosinophils Absolute Auto 0.2 K/mm3 (0-0.3); Eosinophils Percent Auto 1.9 % (0-4.4); Hematocrit 39.4 % (37.0-47.0); Hemoglobin 13.3 g/dL (12.0-15.0); Immature Granulocyte Absolute 0.04 K/mm3 (0.00-0.031); Immature Granulocyte Percent A 0.4 % (0-0.5); Lymphocytes Percent Auto 16.9 % (18.3-44.2); Mean Corpuscular HGB Conc 33.8 g/dl (32-36); Mean Corpuscular Hemoglobin 31.8 pg (26-34); Mean Corpuscular Volume 94.3 fl (80-100); Mean Platelet Volume 10.4 fl (7.4-10.4); Monocytes Absolute Auto 0.5 K/mm3 (0.1-0.6); Monocytes Percent Auto 5.7 % (2.6-8.5); Neutrophils Percent Auto 74.5 % (45.5-73.1); Platelet Count Result 276 k/mm3 (150-375); Red Blood Count 4.18 M/mm3 (4.2-5.4); Red Cell Distribution Width 13.2 % (11.5-14.5); White Blood Count 9.5 K/mm3 (4.5-10.0)
[2021-11-06 05:56] LABS: Alanine Aminotransferase 19 U/L (4-35); Albumin Level 4.1 g/dL (3.5-5.1); Alkaline Phosphatase 64 U/L (38-126); Anion Gap 10 mmol/L (8-16); Aspartate Amino Transferase 58 U/L (14-36); Bilirubin,Total 0.6 mg/dL (0.2-1.3); Blood Urea Nitrogen 18 mg/dL (7-17); Calcium 9.3 mg/dL (8.4-10.2); Carbon Dioxide 26 mmol/L (22-30); Chloride 99 mmol/L (98-107); Estimated Glomerular Filt Rate > 60; Glucose 99 mg/dL (65-110); Potassium 3.5 mmol/L (3.4-5.0); Sodium 135 mmol/L (137-145)
[2021-11-06] MEDS: ENOXAPARIN 40 MG/0.4 ML SYRINGE SUB-Q ×2 (08:36→20:02)
[2021-11-06] MEDS: EUCERIN CREAM 120 GM JAR 1 APPLIC TOPICAL ×2 (08:38→16:54)
--- NOTE | 2021-11-06 09:00 | P.PNIM_ITS ---
Progress Note: A&P Assessment and Plan (1) Osteoarthritis of knees, bilateral: Code(s): M17.0 - Bilateral primary osteoarthritis of knee Status: Acute Assessment and Plan: * X-ray showed progression of moderate-severe tricompartment osteoarthritis * ortho consult thank you for your help * Pain regimen tylenol, morphine, and norco ordered * Cortisone shots 11/05/21 * PT/OT * SNF placement (2) General weakness: Code(s): R53.1 - Weakness Status: Acute Assessment and Plan: * Reported weakness and decline in function * Secondary to severe morbid obesity and chronic deconditioning * Would like placement in a rehab facility and eventual home physical therapy * Reports knee immobility * cortisone shot 11/05/21 * Ortho consult * PT/OT (3) Adult failure to thrive: Code(s): R62.7 - Adult failure to thrive Status: Acute Assessment and Plan: * See above (4) Elevated glucose level: Code(s): R73.09 - Other abnormal glucose Status: Acute Assessment and Plan: * Glucose upon arrival was 211 * This morning 99 * A1c 5.5 * Trend glucose levels * Seems to be controlled at this time (5) Obstructive sleep apnea: Code(s): G47.33 - Obstructive sleep apnea (adult) (pediatric) Status: Acute Assessment and Plan: * Secondary to chronic obesity * Apnea link ordered * Consider further workup outpatient (6) Morbid obesity with BMI of 50.0-59.9, adult: Code(s): E66.01 - Morbid (severe) obesity due to excess calories; Z68.43 - Body mass index [BMI] 50.0-59.9, adult Status: Acute Assessment and Plan: * Life style modification education provided * [place] Compounder consult * Low fat/Calorie diet * Consider adding a GLP-1 at discharge (7) Cardiomegaly: Code(s): I51.7 - Cardiomegaly Status: Acute Assessment and Plan: * Chest xray and CTA show cardiomegaly * BNP elevated at 481 * Echo ordered and pending * Daily weights * Strict I&O * Hold on diuretics due to low sodium (8) Shortness of breath: Code(s): R06.02 - Shortness of breath Status: Acute Assessment and Plan: * Multi contributory finding including obesity, immobility, cardiomegaly * Echo ordered and pending * Trend SPO2 (9) Hypothyroidism, acquired, autoimmune: Code(s): E06.3 - Autoimmune thyroiditis Status: Acute Assessment and Plan: * TSH 43.200 * T4 <0.07 * Consider increasing her home levothyroxine from 50mcg to 75mcg * Recheck in 4-6 weeks (10) Hyponatremia: Code(s): E87.1 - Hypo-osmolality and hyponatremia Status: Acute Assessment and Plan: * Na 135 this am * Run urine studies Ur sodium 13, Urea 363, Cr 57.4 * Hold on diuretics for now * Consider IV fluids * Continue to trend Subjective Date/time seen: 11/06/21 0900 Interval history: Date/Time 11/04/21 0250 Narrative: 81-year-old female past medical history of psoriasis, morbid obesity, likely obstructive sleep apnea, and severe medial compartment osteoarthritis of her knees who presented to the ER from home with multiple complaints. The patient reports that she has had decreased physical activity for for 5 years due to knee pain. She states that she is too large to have knee repla
--- NOTE | 2021-11-06 09:00 | PM.IMPN ---
Progress Note: A&P Assessment and Plan (1) Osteoarthritis of knees, bilateral: Code(s): M17.0 - Bilateral primary osteoarthritis of knee Status: Acute Assessment and Plan: X-ray showed progression of moderate-severe tricompartment osteoarthritis ortho consult thank you for your help Pain regimen tylenol, morphine, and norco ordered Cortisone shots 11/05/21 PT/OT SNF placement (2) General weakness: Code(s): R53.1 - Weakness Status: Acute Assessment and Plan: Reported weakness and decline in function Secondary to severe morbid obesity and chronic deconditioning Would like placement in a rehab facility and eventual home physical therapy Reports knee immobility cortisone shot 11/05/21 Ortho consult PT/OT (3) Adult failure to thrive: Code(s): R62.7 - Adult failure to thrive Status: Acute Assessment and Plan: See above (4) Elevated glucose level: Code(s): R73.09 - Other abnormal glucose Status: Acute Assessment and Plan: Glucose upon arrival was 211 This morning 99 A1c 5.5 Trend glucose levels Seems to be controlled at this time (5) Obstructive sleep apnea: Code(s): G47.33 - Obstructive sleep apnea (adult) (pediatric) Status: Acute Assessment and Plan: Secondary to chronic obesity Apnea link ordered Consider further workup outpatient (6) Morbid obesity with BMI of 50.0-59.9, adult: Code(s): E66.01 - Morbid (severe) obesity due to excess calories; Z68.43 - Body mass index [BMI] 50.0-59.9, adult Status: Acute Assessment and Plan: Life style modification education provided Vegetable I Farmworker consult Low fat/Calorie diet Consider adding a GLP-1 at discharge (7) Cardiomegaly: Code(s): I51.7 - Cardiomegaly Status: Acute Assessment and Plan: Chest xray and CTA show cardiomegaly BNP elevated at 481 Echo ordered and pending Daily weights Strict I&O Hold on diuretics due to low sodium (8) Shortness of breath: Code(s): R06.02 - Shortness of breath Status: Acute Assessment and Plan: Multi contributory finding including obesity, immobility, cardiomegaly Echo ordered and pending Trend SPO2 (9) Hypothyroidism, acquired, autoimmune: Code(s): E06.3 - Autoimmune thyroiditis Status: Acute Assessment and Plan: TSH 43.200 T4 <0.07 Consider increasing her home levothyroxine from 50mcg to 75mcg Recheck in 4-6 weeks (10) Hyponatremia: Code(s): E87.1 - Hypo-osmolality and hyponatremia Status: Acute Assessment and Plan: Na 135 this am Run urine studies Ur sodium 13, Urea 363, Cr 57.4 Hold on diuretics for now Consider IV fluids Continue to trend Subjective Date/time seen: 11/06/21 0900 Interval history: Date/Time 11/04/21 0250 Narrative: 81-year-old female past medical history of psoriasis, morbid obesity, likely obstructive sleep apnea, and severe medial compartment osteoarthritis of her knees who presented to the ER from home with multiple complaints. The patient reports that she has had decreased physical activity for for 5 years due to knee pain. She states that she is too large to have knee replacements. She was evaluated by Orthopedic surgery in 2019 who rim I commended she lose weight down to 190 lb to be considered for surgery. She states she is unable lose weight could she cannot be active and her weakness has progressed. She ambulates with a walker. Today she had more more severe pain in her left knee and was not able to compensate for weakness and was unable to get up off the toilet unassisted. She also reports some history of edema in her throat for which she is being evaluated at [facility] with ENT. The patient had a consult note in the computer from [facility] that reports the patient has lingular tonsillar hypertrop
[2021-11-06 14:00] VITALS: BP 125/72; PULSE 62; RESP 16; TEMP 37.2; O2SAT 95
--- NOTE | 2021-11-06 15:23 | PM.PNORT ---
Progress Note: A&P Assessment and Plan (1) Osteoarthritis of knees, bilateral: Code(s): M17.0 - Bilateral primary osteoarthritis of knee Status: Acute (2) Morbid obesity with BMI of 50.0-59.9, adult: Code(s): E66.01 - Morbid (severe) obesity due to excess calories; Z68.43 - Body mass index [BMI] 50.0-59.9, adult Status: Acute Assessment and Plan: Severe bilateral knee osteoarthritis. Extremely obese. Difficulty mobilizing. Acute on chronic symptoms may be secondary to inflammatory arthropathy such as gout or pseudogout. Bilateral knee injection given yesterday. Patient notes mild improvement. Notified patient that steroid injections can take a week to reach full benefit. Discharge planning to rehab/SNF in process. Subjective Subjective Date/Time Seen: 11/06/21 15:23 Patient states she has mild improvement from steroid injections. Notified her that they can take a while to start working. No other complaints today. Review of Systems Review of Systems: All systems reviewed & are unremarkable except as noted in HPI and below Exam Narrative: Extremely obese. Alert and oriented. No distress. Bilateral knees with exquisite tenderness. Mild effusion. No warmth or erythema. No mass or other lesions. Distal edema. Purplish discoloration of both forefeet. Wiggles toes. Brief musculoskeletal survey normal. I reviewed the radiographs which show severe varus arthrosis. Objective Data Vital Signs Vital Signs: Vital Signs - 24 hr 11/05/21 19:39 11/05/21 22:36 11/06/21 04:49 Temperature 98.7 F 97.8 F Pulse Rate 67 72 Respiratory Rate 17 16 Blood Pressure 114/54 L 142/86 H Pulse Oximetry 95 95 97 Intake/Output Intake/Output: Intake & Output 11/03/21 11/04/21 11/05/21 11/06/21 23:59 23:59 23:59 23:59 Intake Total 1930 1190 800 Output Total 300 Balance 1930 890 800 Meds/Results Medications: Active Medications Generic Name Dose Route Start Last Admin Trade Name Freq PRN Reason Stop Dose Admin Acetaminophen 1,000 mg 11/04/21 09:06 Acetaminophen 500 Mg Tablet PO Q6H PRN Mild Pain (1-3) or Fever Hydrocodone Bitart/Acetaminophen 1 tab 11/04/21 09:06 11/05/21 05:54 Hydrocodone/Acetaminophen (*Crx) 5-325 Mg Tablet PO 1 tab Q6H PRN Administration Pain Rated 4-6 Enoxaparin Sodium 40 mg 11/04/21 09:00 11/06/21 08:36 Enoxaparin 40 Mg/0.4 Ml Syringe SUB-Q 40 mg Q12HR SANKET Administration Levothyroxine Sodium 75 mcg 11/05/21 06:30 11/06/21 05:35 Levothyroxine Sodium 75 Mcg Tablet PO 75 mcg DAILY@0630 SANKET Administration Miconazole Nitrate 1 applic 11/04/21 09:00 11/06/21 08:37 Miconazole 2% Antifungal Ointment 56 Gm TOPICAL 1 applic Q12HR SANKET Administration Morphine Sulfate 1 mg 11/04/21 09:06 11/06/21 05:38 Morphine Sulfate (*Crx) 2 Mg/Ml Inj IV PUSH 1 mg Q4H PRN Administration Severe Pain (7-10) Multi-Ingred Cream/Lotion/Oil/Oint 1 applic 11/04/21 09:00 11/06/21 08:38 Eucerin Cream 120 Gm Jar TOPICAL 1 applic BID SANKET Administration Radiology Results: ITS Impressions Chest X-Ray 11/03/21 21:00 IMPRESSION: 1. No acute cardiopulmonary abnormality. Knee X-Ray 11/04/21 06:39 Impression: 1: Progression of moderate-severe tricompartment osteoarthritis. 2: Small knee effusion. Chest CTA 11/04/21 07:24 IMPRESSION: 1. No evidence for pulmonary embolism. 2: Cardiomegaly with small pericardial effusion. Labs Labs: Laboratory Results - last 24 hr 11/05/21 11/06/21 11/06/21 17:19 05:23 05:23 WBC 9.5 RBC 4.18 L Hgb 13.3 Hct 39.4 MCV 94.3 D MCH 31.8 MCHC 33.8 RDW 13.2 Plt Count 276 MPV 10.4 Immature Gran % (Auto) 0.4 Neut % (Auto) 74.5 H Lymph % (Auto) 16.9 L [place] % (Auto) 5.7 Eos % (Auto) 1.9 Baso % (Auto) 0.6 Lymph # (Auto) 1.60 [place] # (Auto) 0.5 Eos # (Auto) 0.2 Baso # (
--- NOTE | 2021-11-06 19:33 | WPDCN ---
Assessment and Plan Assessment and plan (1) Shortness of breath: Code(s): R06.02 - Shortness of breath Status: Acute Assessment and Plan: Recommend referral to pulmonology for sleep issues/STU/sleep study/SOB if the patient truly hasn't seen pulmonology. Better candidate for cpap vs sleep surgery. TSH grossly elevated on recent lab, agree with increasing. Please call with any questions/concerns. No acute otolaryngologic issues. [phone] (2) Sleep apnea: Code(s): G47.30 - Sleep apnea, unspecified Status: Acute HPI Data of Consult Date/Time: 11/06/21 19:33 Requesting Physician: Rina Gonzalez DO Primary Care Provider: Hubert Barros DO Consult Narrative Narrative: Annel Bhatia is a 81 year old female with shortness of breath. Seen by myself months ago. ENT consulted to discuss sleep issues and shortness of breath. Pt reports persistent sleep issues and sob. Seen by sleep specialist ENT in [facility] recently. He recommended sleep study. Pt reports not having seen a painting technician in some time, possibly ever. [facility] Past Medical History Medical History Chronic kidney disease Stage III with baseline creatinine between 1.1 and 1.2. Hyperlipidemia Hypertriglyceridemia Hypothyroidism, acquired, autoimmune Lower back pain Osteoarthritis of knees, bilateral Severe medial compartmental osteoarthritis Osteoarthritis of left hip Psoriasis Surgical History Surgical History H/O: hysterectomy 1984 History of Nestor fundoplication (~2003) To repair a large esophageal hernia Hx of removal of ovary 1986 Family History Family History Mother , At 89 years old Cerebrovascular accident Father , At 92 years old COPD (chronic obstructive pulmonary disease) Sibling Heart disease Cancer Social History Social History Social History: She has been for over 50 years. 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 Her is 96 years old and still hold his medical license. They have 1 son. Code status: Full code Surrogate decision maker: Rancho Bhatia (son) Smoking status: Never smoker Alcohol intake: former Alcohol use details: She used to drink alcohol in moderation in social situations. She has not had an alcoholic beverage since 2019. Substance use: never Spiritual care concerns: No Meds Home Medications and Allergies Home Medications Medication Instructions Recorded Confirmed Type levothyroxine 50 mcg tablet 50 mcg PO DAILY #90 tablet 09/24/20 11/04/21 Rx Allergies Allergy/AdvReac Type Severity Reaction Status Date / Time No Known Allergies Allergy Verified 11/03/21 20:39 Vital Signs Vital Signs - 24 hr 11/05/21 19:39 11/05/21 22:36 11/06/21 04:49 Temperature 37.1 C 36.6 C Pulse Rate 67 72 Respiratory Rate 17 16 Blood Pressure 114/54 L 142/86 H Pulse Oximetry 95 95 97 11/06/21 14:00 Temperature 37.2 C Pulse Rate 62 Respiratory Rate 16 Blood Pressure 125/72 Pulse Oximetry 95 Exam Const: Other: Relatively normal ent exam, no lymphadenopathy, dry membranes, caries noted, no neck masses. Results Labs CBC & Chem 7: 11/06/21 05:23 11/06/21 05:23 Labs: Short CBC 11/06/21 Range/Units 05:23 WBC 9.5 (4.5-10.0) K/mm3 Hgb 13.3 (12.0-15.0) g/dL Hct 39.4 (37.0-47.0) % Plt Count 276 (150-375) k/mm3 BMP 11/06/21 05:23 Sodium 135 L Potassium 3.5 Chloride 99 Carbon Dioxide 26 BUN 18 H Creatinine 0.80 Glucose 99 Calcium 9.3 Liver Function 11/06/21 Range/Units 05:23 Total Bilirubin 0.6 (0.2-1.3) mg/dL AST 58 H (14-36) U/L ALT 19 (4-35) U/L Alkaline Phosphatase 64 (38
[2021-11-06 20:23] VITALS: BP 135/79; PULSE 70; RESP 16; TEMP 36.5; O2SAT 98
[2021-11-07] MEDS: MORPHINE SULFATE (*CRX) 2 MG/ML INJ 1 MG IV PUSH (00:14)
[2021-11-07 05:55] VITALS: BP 130/68; PULSE 58; RESP 17; TEMP 36.4; O2SAT 96
[2021-11-07 06:01] LABS: Alanine Aminotransferase 19 U/L (4-35); Albumin Level 4.1 g/dL (3.5-5.1); Alkaline Phosphatase 60 U/L (38-126); Anion Gap 7 mmol/L (8-16); Aspartate Amino Transferase 48 U/L (14-36); Bilirubin,Total 0.6 mg/dL (0.2-1.3); Blood Urea Nitrogen 18 mg/dL (7-17); Calcium 9.1 mg/dL (8.4-10.2); Carbon Dioxide 28 mmol/L (22-30); Chloride 96 mmol/L (98-107); Estimated Glomerular Filt Rate > 60; Glucose 101 mg/dL (65-110); Potassium 3.6 mmol/L (3.4-5.0); Sodium 131 mmol/L (137-145)
[2021-11-07] MEDS: LEVOTHYROXINE SODIUM 75 MCG TABLET PO (06:07)
[2021-11-07 06:55] LABS: Basophils Absolute Auto 0.1 K/mm3 (0.0-0.1); Basophils Percent Auto 0.7 % (0.2-1.2); Eosinophils Absolute Auto 0.2 K/mm3 (0-0.3); Eosinophils Percent Auto 1.8 % (0-4.4); Hematocrit 37.6 % (37.0-47.0); Hemoglobin 12.6 g/dL (12.0-15.0); Immature Granulocyte Absolute 0.08 K/mm3 (0.00-0.031); Immature Granulocyte Percent A 0.9 % (0-0.5); Lymphocytes Absolute Auto 1.54 K/mm3 (0.9-3.2); Lymphocytes Percent Auto 18.1 % (18.3-44.2); Mean Corpuscular HGB Conc 33.5 g/dl (32-36); Mean Corpuscular Hemoglobin 31.6 pg (26-34); Mean Corpuscular Volume 94.2 fl (80-100); Mean Platelet Volume 10.5 fl (7.4-10.4); Monocytes Absolute Auto 0.5 K/mm3 (0.1-0.6); Monocytes Percent Auto 5.7 % (2.6-8.5); Neutrophils Absolute Auto 6.2 K/mm3 (1.3-6.7); Neutrophils Percent Auto 72.8 % (45.5-73.1); Platelet Count Result 279 k/mm3 (150-375); Red Blood Count 3.99 M/mm3 (4.2-5.4); Red Cell Distribution Width 13.2 % (11.5-14.5); White Blood Count 8.5 K/mm3 (4.5-10.0)
[2021-11-07 08:00] VITALS: O2SAT 98
[2021-11-07] MEDS: EUCERIN CREAM 120 GM JAR 1 APPLIC TOPICAL ×2 (08:05→16:28)
[2021-11-07] MEDS: ENOXAPARIN 40 MG/0.4 ML SYRINGE SUB-Q ×2 (08:05→20:44)
[2021-11-07] MEDS: HYDROcodone/acetaminophen (*CRX) 5-325 MG TABLET 1 TAB PO ×2 (08:13→20:53)
[2021-11-07 08:30] VITALS: BP 130/71; PULSE 60; RESP 16; O2SAT 98
--- NOTE | 2021-11-07 09:45 | P.PNIM_ITS ---
Progress Note: A&P Assessment and Plan (1) Osteoarthritis of knees, bilateral: Code(s): M17.0 - Bilateral primary osteoarthritis of knee Status: Acute Assessment and Plan: * X-ray showed progression of moderate-severe tricompartment osteoarthritis * ortho consult thank you for your help * Pain regimen tylenol, morphine, and norco ordered * Cortisone shots 11/05/21 * PT/OT * SNF placement (2) General weakness: Code(s): R53.1 - Weakness Status: Acute Assessment and Plan: * Reported weakness and decline in function * Secondary to severe morbid obesity and chronic deconditioning * Would like placement in a rehab facility and eventual home physical therapy * Reports knee immobility * cortisone shot 11/05/21 * Ortho consult * PT/OT (3) Adult failure to thrive: Code(s): R62.7 - Adult failure to thrive Status: Acute Assessment and Plan: * See above (4) Elevated glucose level: Code(s): R73.09 - Other abnormal glucose Status: Acute Assessment and Plan: * Glucose upon arrival was 211 * This morning 99 * A1c 5.5 * Trend glucose levels * Seems to be controlled at this time (5) Obstructive sleep apnea: Code(s): G47.33 - Obstructive sleep apnea (adult) (pediatric) Status: Acute Assessment and Plan: * Secondary to chronic obesity * Apnea link ordered * Consider further workup outpatient (6) Morbid obesity with BMI of 50.0-59.9, adult: Code(s): E66.01 - Morbid (severe) obesity due to excess calories; Z68.43 - Body mass index [BMI] 50.0-59.9, adult Status: Acute Assessment and Plan: * Life style modification education provided * Afterschool consult * Low fat/Calorie diet * Consider adding a GLP-1 at discharge (7) Cardiomegaly: Code(s): I51.7 - Cardiomegaly Status: Acute Assessment and Plan: * Chest xray and CTA show cardiomegaly * BNP elevated at 481 * Echo EF of 65-70% with grade 1 diastolic dysfunction * Daily weights * Strict I&O * Hold on diuretics due to low sodium (8) Shortness of breath: Code(s): R06.02 - Shortness of breath Status: Acute Assessment and Plan: * Multi contributory finding including obesity, immobility, cardiomegaly * Echo EF of 65-70% with grade 1 diastolic dysfunction * Trend SPO2 (9) Hypothyroidism, acquired, autoimmune: Code(s): E06.3 - Autoimmune thyroiditis Status: Acute Assessment and Plan: * TSH 43.200 * T4 <0.07 * Consider increasing her home levothyroxine from 50mcg to 75mcg * Recheck in 4-6 weeks (10) Hyponatremia: Code(s): E87.1 - Hypo-osmolality and hyponatremia Status: Acute Assessment and Plan: * Na 131 this am * Run urine studies Ur sodium 13, Urea 363, Cr 57.4 * Hold on diuretics for now * Consider IV fluids * Continue to trend Subjective Date/time seen: 11/07/21 0845 Interval history: Date/Time 11/04/21 0250 Narrative: 81-year-old female past medical history of psoriasis, morbid obesity, likely obstructive sleep apnea, and severe medial compartment osteoarthritis of her knees who presented to the ER from home with multiple complaints. The patient reports that she has had decreased physical activity for for 5 years due to knee
--- NOTE | 2021-11-07 09:45 | PM.IMPN ---
Progress Note: A&P Assessment and Plan (1) Osteoarthritis of knees, bilateral: Code(s): M17.0 - Bilateral primary osteoarthritis of knee Status: Acute Assessment and Plan: X-ray showed progression of moderate-severe tricompartment osteoarthritis ortho consult thank you for your help Pain regimen tylenol, morphine, and norco ordered Cortisone shots 11/05/21 PT/OT SNF placement (2) General weakness: Code(s): R53.1 - Weakness Status: Acute Assessment and Plan: Reported weakness and decline in function Secondary to severe morbid obesity and chronic deconditioning Would like placement in a rehab facility and eventual home physical therapy Reports knee immobility cortisone shot 11/05/21 Ortho consult PT/OT (3) Adult failure to thrive: Code(s): R62.7 - Adult failure to thrive Status: Acute Assessment and Plan: See above (4) Elevated glucose level: Code(s): R73.09 - Other abnormal glucose Status: Acute Assessment and Plan: Glucose upon arrival was 211 This morning 99 A1c 5.5 Trend glucose levels Seems to be controlled at this time (5) Obstructive sleep apnea: Code(s): G47.33 - Obstructive sleep apnea (adult) (pediatric) Status: Acute Assessment and Plan: Secondary to chronic obesity Apnea link ordered Consider further workup outpatient (6) Morbid obesity with BMI of 50.0-59.9, adult: Code(s): E66.01 - Morbid (severe) obesity due to excess calories; Z68.43 - Body mass index [BMI] 50.0-59.9, adult Status: Acute Assessment and Plan: Life style modification education provided Youth [employer] Judge consult Low fat/Calorie diet Consider adding a GLP-1 at discharge (7) Cardiomegaly: Code(s): I51.7 - Cardiomegaly Status: Acute Assessment and Plan: Chest xray and CTA show cardiomegaly BNP elevated at 481 Echo EF of 65-70% with grade 1 diastolic dysfunction Daily weights Strict I&O Hold on diuretics due to low sodium (8) Shortness of breath: Code(s): R06.02 - Shortness of breath Status: Acute Assessment and Plan: Multi contributory finding including obesity, immobility, cardiomegaly Echo EF of 65-70% with grade 1 diastolic dysfunction Trend SPO2 (9) Hypothyroidism, acquired, autoimmune: Code(s): E06.3 - Autoimmune thyroiditis Status: Acute Assessment and Plan: TSH 43.200 T4 <0.07 Consider increasing her home levothyroxine from 50mcg to 75mcg Recheck in 4-6 weeks (10) Hyponatremia: Code(s): E87.1 - Hypo-osmolality and hyponatremia Status: Acute Assessment and Plan: Na 131 this am Run urine studies Ur sodium 13, Urea 363, Cr 57.4 Hold on diuretics for now Consider IV fluids Continue to trend Subjective Date/time seen: 11/07/21 0845 Interval history: Date/Time 11/04/21249 Narrative: 81-year-old female past medical history of psoriasis, morbid obesity, likely obstructive sleep apnea, and severe medial compartment osteoarthritis of her knees who presented to the ER from home with multiple complaints. The patient reports that she has had decreased physical activity for for 5 years due to knee pain. She states that she is too large to have knee replacements. She was evaluated by Orthopedic surgery in 2019 who rim I commended she lose weight down to 190 lb to be considered for surgery. She states she is unable lose weight could she cannot be active and her weakness has progressed. She ambulates with a walker. Today she had more more severe pain in her left knee and was not able to compensate for weakness and was unable to get up off the toilet unassisted. She also reports some history of edema in her throat for which she is being evaluated at [facility] with ENT. The patient had a consult note in the computer from [facility] t
--- NOTE | 2021-11-07 10:33 | PC.NURSE ---
I reviewed the student nurse documentation and agree with the findings.
[2021-11-07 12:52] VITALS: BMI 10.0
[2021-11-07 12:56] VITALS: O2SAT 95
[2021-11-07 14:00] VITALS: BP 125/72; PULSE 58; RESP 16; TEMP 36.8; O2SAT 98
--- NOTE | 2021-11-07 14:33 | PC.NURSE ---
On 11/07/21, the student, [Pako Anne], provided care and completed [facility] documentation on this patient. I have reviewed the student's documentation and agree with the findings.
[2021-11-07] MEDS: FLUTICASONE PROPIONATE 0.05% NA SPR 16 GM BTL (*BKC) 1 SPRAY NASAL ×2 (16:28→20:45)
[2021-11-07 20:56] VITALS: BP 147/75; PULSE 60; RESP 16; TEMP 36.2; O2SAT 98
[2021-11-08 05:37] VITALS: BP 127/78; PULSE 71; RESP 18; TEMP 36.2; O2SAT 97
[2021-11-08] MEDS: LEVOTHYROXINE SODIUM 75 MCG TABLET PO (06:00)
--- NOTE | 2021-11-08 06:45 | P.PNIM_ITS ---
Progress Note: A&P Assessment and Plan (1) Osteoarthritis of knees, bilateral: Code(s): M17.0 - Bilateral primary osteoarthritis of knee Status: Acute Assessment and Plan: * X-ray showed progression of moderate-severe tricompartment osteoarthritis * ortho consult thank you for your help * Pain regimen tylenol, morphine, and norco ordered * Cortisone shots 11/05/21 * PT/OT * SNF placement (2) General weakness: Code(s): R53.1 - Weakness Status: Acute Assessment and Plan: * Reported weakness and decline in function * Secondary to severe morbid obesity and chronic deconditioning * Would like placement in a rehab facility and eventual home physical therapy * Reports knee immobility * cortisone shot 11/05/21 * Ortho consult * PT/OT (3) Adult failure to thrive: Code(s): R62.7 - Adult failure to thrive Status: Acute Assessment and Plan: * See above (4) Elevated glucose level: Code(s): R73.09 - Other abnormal glucose Status: Acute Assessment and Plan: * Glucose upon arrival was 211 * This morning 99 * A1c 5.5 * Trend glucose levels * Seems to be controlled at this time (5) Obstructive sleep apnea: Code(s): G47.33 - Obstructive sleep apnea (adult) (pediatric) Status: Acute Assessment and Plan: * Secondary to chronic obesity * Apnea link showed AHI of 30, and looks to have desaturated multiple minutes throughout the night * Talk to pulm and recommended and abg, and doing an apnea link with 2LNC at bed time * Consider further workup outpatient (6) Morbid obesity with BMI of 50.0-59.9, adult: Code(s): E66.01 - Morbid (severe) obesity due to excess calories; Z68.43 - Body mass index [BMI] 50.0-59.9, adult Status: Acute Assessment and Plan: * Life style modification education provided * Payloader Machine Operator consult * Low fat/Calorie diet * Consider adding a GLP-1 at discharge (7) Cardiomegaly: Code(s): I51.7 - Cardiomegaly Status: Acute Assessment and Plan: * Chest xray and CTA show cardiomegaly * BNP elevated at 481 * Echo EF of 65-70% with grade 1 diastolic dysfunction * Daily weights * Strict I&O * Hold on diuretics due to low sodium (8) Shortness of breath: Code(s): R06.02 - Shortness of breath Status: Acute Assessment and Plan: * Multi contributory finding including obesity, immobility, cardiomegaly * Echo EF of 65-70% with grade 1 diastolic dysfunction * Trend SPO2 (9) Hypothyroidism, acquired, autoimmune: Code(s): E06.3 - Autoimmune thyroiditis Status: Acute Assessment and Plan: * TSH 43.200 * T4 <0.07 * Consider increasing her home levothyroxine from 50mcg to 75mcg * Recheck in 4-6 weeks (10) Hyponatremia: Code(s): E87.1 - Hypo-osmolality and hyponatremia Status: Acute Assessment and Plan: * Na 131 this am * Run urine studies Ur sodium 13, Urea 363, Cr 57.4 * Hold on diuretics for now * Consider IV fluids * Continue to trend (11) Nocturnal hypoxia: Code(s): G47.34 - Idiopathic sleep related nonobstructive alveolar hypoventilation Status: Acute Assessment and Plan: * Apnea noted to have multiple minutes of desa
--- NOTE | 2021-11-08 06:45 | PM.IMPN ---
Progress Note: A&P Assessment and Plan (1) Osteoarthritis of knees, bilateral: Code(s): M17.0 - Bilateral primary osteoarthritis of knee Status: Acute Assessment and Plan: X-ray showed progression of moderate-severe tricompartment osteoarthritis ortho consult thank you for your help Pain regimen tylenol, morphine, and norco ordered Cortisone shots 11/05/21 PT/OT SNF placement (2) General weakness: Code(s): R53.1 - Weakness Status: Acute Assessment and Plan: Reported weakness and decline in function Secondary to severe morbid obesity and chronic deconditioning Would like placement in a rehab facility and eventual home physical therapy Reports knee immobility cortisone shot 11/05/21 Ortho consult PT/OT (3) Adult failure to thrive: Code(s): R62.7 - Adult failure to thrive Status: Acute Assessment and Plan: See above (4) Elevated glucose level: Code(s): R73.09 - Other abnormal glucose Status: Acute Assessment and Plan: Glucose upon arrival was 211 This morning 99 A1c 5.5 Trend glucose levels Seems to be controlled at this time (5) Obstructive sleep apnea: Code(s): G47.33 - Obstructive sleep apnea (adult) (pediatric) Status: Acute Assessment and Plan: Secondary to chronic obesity Apnea link showed AHI of 30, and looks to have desaturated multiple minutes throughout the night Talk to pulm and recommended and abg, and doing an apnea link with 2LNC at bed time Consider further workup outpatient (6) Morbid obesity with BMI of 50.0-59.9, adult: Code(s): E66.01 - Morbid (severe) obesity due to excess calories; Z68.43 - Body mass index [BMI] 50.0-59.9, adult Status: Acute Assessment and Plan: Life style modification education provided Passenger Booking Clerk consult Low fat/Calorie diet Consider adding a GLP-1 at discharge (7) Cardiomegaly: Code(s): I51.7 - Cardiomegaly Status: Acute Assessment and Plan: Chest xray and CTA show cardiomegaly BNP elevated at 481 Echo EF of 65-70% with grade 1 diastolic dysfunction Daily weights Strict I&O Hold on diuretics due to low sodium (8) Shortness of breath: Code(s): R06.02 - Shortness of breath Status: Acute Assessment and Plan: Multi contributory finding including obesity, immobility, cardiomegaly Echo EF of 65-70% with grade 1 diastolic dysfunction Trend SPO2 (9) Hypothyroidism, acquired, autoimmune: Code(s): E06.3 - Autoimmune thyroiditis Status: Acute Assessment and Plan: TSH 43.200 T4 <0.07 Consider increasing her home levothyroxine from 50mcg to 75mcg Recheck in 4-6 weeks (10) Hyponatremia: Code(s): E87.1 - Hypo-osmolality and hyponatremia Status: Acute Assessment and Plan: Na 131 this am Run urine studies Ur sodium 13, Urea 363, Cr 57.4 Hold on diuretics for now Consider IV fluids Continue to trend (11) Nocturnal hypoxia: Code(s): G47.34 - Idiopathic sleep related nonobstructive alveolar hypoventilation Status: Acute Assessment and Plan: Apnea noted to have multiple minutes of desaturation Apnea link with oxygen bleed in scheduled for tonight Will need to increase oxygen with apnea link to meet <5mins desaturation up to 4L Subjective Date/time seen: 11/08/21 06:45 Interval history: Date/Time 11/04/21 0250 Narrative: 81-year-old female past medical history of psoriasis, morbid obesity, likely obstructive sleep apnea, and severe medial compartment osteoarthritis of her knees who presented to the ER from home with multiple complaints. The patient reports that she has had decreased physical activity for for 5 years due to knee pain. She states that she is too large to have knee replacements. She was evaluated by
[2021-11-08 06:51] LABS: Basophils Absolute Auto 0.1 K/mm3 (0.0-0.1); Basophils Percent Auto 0.7 % (0.2-1.2); Eosinophils Absolute Auto 0.1 K/mm3 (0-0.3); Eosinophils Percent Auto 1.5 % (0-4.4); Hematocrit 40.6 % (37.0-47.0); Hemoglobin 13.5 g/dL (12.0-15.0); Immature Granulocyte Absolute 0.04 K/mm3 (0.00-0.031); Immature Granulocyte Percent A 0.4 % (0-0.5); Lymphocytes Absolute Auto 1.58 K/mm3 (0.9-3.2); Lymphocytes Percent Auto 16.8 % (18.3-44.2); Mean Corpuscular HGB Conc 33.3 g/dl (32-36); Mean Corpuscular Volume 96.2 fl (80-100); Monocytes Absolute Auto 0.5 K/mm3 (0.1-0.6); Monocytes Percent Auto 5.7 % (2.6-8.5); Neutrophils Absolute Auto 7.1 K/mm3 (1.3-6.7); Neutrophils Percent Auto 74.9 % (45.5-73.1); Platelet Count Result 296 k/mm3 (150-375); Red Blood Count 4.22 M/mm3 (4.2-5.4); Red Cell Distribution Width 13.5 % (11.5-14.5); White Blood Count 9.4 K/mm3 (4.5-10.0)
[2021-11-08 06:55] LABS: Osmolality, Urine 233 mOsm/kg (50-1200)
[2021-11-08 07:00] LABS: Alanine Aminotransferase 22 U/L (4-35); Albumin Level 4.3 g/dL (3.5-5.1); Alkaline Phosphatase 61 U/L (38-126); Anion Gap 8 mmol/L (8-16); Aspartate Amino Transferase 47 U/L (14-36); Bilirubin,Total 0.7 mg/dL (0.2-1.3); Blood Urea Nitrogen 22 mg/dL (7-17); Calcium 9.2 mg/dL (8.4-10.2); Carbon Dioxide 32 mmol/L (22-30); Chloride 100 mmol/L (98-107); Estimated Glomerular Filt Rate 53; Glucose 99 mg/dL (65-110); Potassium 3.9 mmol/L (3.4-5.0); Sodium 140 mmol/L (137-145)
[2021-11-08] MEDS: ENOXAPARIN 40 MG/0.4 ML SYRINGE SUB-Q ×2 (08:24→20:43)
[2021-11-08] MEDS: EUCERIN CREAM 120 GM JAR 1 APPLIC TOPICAL ×2 (08:24→16:41)
[2021-11-08] MEDS: FLUTICASONE PROPIONATE 0.05% NA SPR 16 GM BTL (*BKC) 1 SPRAY NASAL ×2 (08:24→20:43)
[2021-11-08 08:34] VITALS: O2SAT 94
[2021-11-08] MEDS: HYDROcodone/acetaminophen (*CRX) 5-325 MG TABLET 1 TAB PO (09:03)
[2021-11-08 09:06] LABS: Alveolar/Arterial O2 Gradient 42.6 mmHg; Base Excess ABG 0.5 mEq/l (+/-2.0); Carboxyhemoglobin 0.2 % THb (0-2.0); Fractional Inspired Oxygen 21 %; Methemoglobin ABG 0.3 %THb (0-1.5); Oxygen Saturation ABG 95.4 % (95.0-100.0); Oxyhemoglobin 93.9 % THb (90.0-100.0); PCO2 ABG 31.1 mmHg (35.0-45.0); PO2 ABG 69.9 mmHg (80.0-100.0); PO2 FiO2 Ratio Arterial Blood 3.33 %; Reduced Hemoglobin 5.6 %THb (0-5.0); Total Hemoglobin 13.6 g/dL (12.0-18.0); pH ABG 7.487 (7.350-7.450)
[2021-11-08 09:07] LABS: Device ROOM AIR; Modified Allen's Test Pass; Site Drawn LEFT RADIAL
[2021-11-08 14:14] VITALS: BP 119/57; PULSE 66; RESP 20; TEMP 36.1; O2SAT 98
[2021-11-08 17:12] VITALS: O2SAT 95
[2021-11-08] MEDS: MORPHINE SULFATE (*CRX) 2 MG/ML INJ 1 MG IV PUSH (20:41)
[2021-11-08 22:00] VITALS: BP 128/69; PULSE 57; RESP 18; TEMP 36.3; O2SAT 97
--- NOTE | 2021-11-08 23:14 | PC.NURSE ---
checking with respiratory regarding pts apnea link for tonight. apnea link is oximetry only and they only have 2 available. apnea link will be done tomorrow night.
--- NOTE | 2021-11-09 00:43 | PCRCNOTE ---
apnea study was not completed (all apnea monitors were in use)
[2021-11-09] MEDS: MORPHINE SULFATE (*CRX) 2 MG/ML INJ 1 MG IV PUSH ×2 (04:13→21:46)
[2021-11-09 06:00] VITALS: BP 118/77; PULSE 68; RESP 20; TEMP 36.2; O2SAT 98
[2021-11-09] MEDS: LEVOTHYROXINE SODIUM 75 MCG TABLET PO (06:03)
[2021-11-09] MEDS: ENOXAPARIN 40 MG/0.4 ML SYRINGE SUB-Q ×2 (08:06→20:34)
[2021-11-09] MEDS: FLUTICASONE PROPIONATE 0.05% NA SPR 16 GM BTL (*BKC) 1 SPRAY NASAL ×2 (08:06→20:34)
[2021-11-09] MEDS: EUCERIN CREAM 120 GM JAR 1 APPLIC TOPICAL ×2 (08:07→16:49)
[2021-11-09] MEDS: HYDROcodone/acetaminophen (*CRX) 5-325 MG TABLET 1 TAB PO (09:10)
[2021-11-09 14:00] VITALS: BP 119/72; PULSE 53; RESP 20; TEMP 36.8; O2SAT 98
[2021-11-09 22:00] VITALS: BP 124/69; PULSE 63; RESP 18; TEMP 36.8; O2SAT 99
[2021-11-10 06:00] VITALS: BP 143/78; PULSE 53; RESP 16; TEMP 36.6; O2SAT 97
[2021-11-10] MEDS: LEVOTHYROXINE SODIUM 75 MCG TABLET PO (06:02)
[2021-11-10] MEDS: HYDROcodone/acetaminophen (*CRX) 5-325 MG TABLET 1 TAB PO ×2 (06:04→14:25)
[2021-11-10] MEDS: ENOXAPARIN 40 MG/0.4 ML SYRINGE SUB-Q ×2 (08:03→19:44)
[2021-11-10] MEDS: FLUTICASONE PROPIONATE 0.05% NA SPR 16 GM BTL (*BKC) 1 SPRAY NASAL ×2 (08:03→19:44)
[2021-11-10] MEDS: EUCERIN CREAM 120 GM JAR 1 APPLIC TOPICAL ×2 (08:04→16:05)
--- NOTE | 2021-11-10 09:34 | P.PNIM_ITS ---
Progress Note: A&P Assessment and Plan (1) Osteoarthritis of knees, bilateral: Code(s): M17.0 - Bilateral primary osteoarthritis of knee Status: Acute Assessment and Plan: * X-ray showed progression of moderate-severe tricompartment osteoarthritis * ortho consult thank you for your help * Pain regimen tylenol, morphine, and norco ordered * Cortisone shots 11/05/21 * PT/OT * Due to the patient's significant osteoarthritis knee pain she has been slowly declining. Cortisone shots on November 05, 2021 to improve patient's weight- bearing. Physical therapy and occupational therapy working with the patient. Patient has shown mild improvements. Patient with significantly benefit from a rehab facility placement due to prolonged hospitalization and slow physical decline due to multiple comorbidities * SNF placement (2) General weakness: Code(s): R53.1 - Weakness Status: Acute Assessment and Plan: * Reported weakness and decline in function * Secondary to severe morbid obesity and chronic deconditioning * Would like placement in a rehab facility and eventual home physical therapy * Reports knee immobility * cortisone shot 11/05/21 * Ortho consult * PT/OT (3) Adult failure to thrive: Code(s): R62.7 - Adult failure to thrive Status: Acute Assessment and Plan: * See above (4) Elevated glucose level: Code(s): R73.09 - Other abnormal glucose Status: Acute Assessment and Plan: * Glucose upon arrival was 211 * This morning 99 * A1c 5.5 * Trend glucose levels * Seems to be controlled at this time (5) Obstructive sleep apnea: Code(s): G47.33 - Obstructive sleep apnea (adult) (pediatric) Status: Acute Assessment and Plan: * Secondary to chronic obesity * Apnea link showed AHI of 30, and looks to have desaturated multiple minutes throughout the night * Talk to pulm and recommended and abg, and doing an apnea link with 2LNC at bed time * Consider further workup outpatient (6) Morbid obesity with BMI of 50.0-59.9, adult: Code(s): E66.01 - Morbid (severe) obesity due to excess calories; Z68.43 - Body mass index [BMI] 50.0-59.9, adult Status: Acute Assessment and Plan: * Life style modification education provided * [employer] Teacher consult * Low fat/Calorie diet * Consider adding a GLP-1 at discharge (7) Cardiomegaly: Code(s): I51.7 - Cardiomegaly Status: Acute Assessment and Plan: * Chest xray and CTA show cardiomegaly * BNP elevated at 481 * Echo EF of 65-70% with grade 1 diastolic dysfunction * Daily weights * Strict I&O * Hold on diuretics due to low sodium (8) Shortness of breath: Code(s): R06.02 - Shortness of breath Status: Acute Assessment and Plan: * Multi contributory finding including obesity, immobility, cardiomegaly * Echo EF of 65-70% with grade 1 diastolic dysfunction * Trend SPO2 (9) Hypothyroidism, acquired, autoimmune: Code(s): E06.3 - Autoimmune thyroiditis Status: Acute Assessment and Plan: * TSH 43.200 * T4 <0.07 * Consider increasing her home levothyroxine from 50mcg to 75mcg * Recheck in 4-6 weeks (10) Hyponatremia: Code(s): E87.1 - Hypo-osmolality and hyponatremia Status: Acute
--- NOTE | 2021-11-10 09:34 | PM.IMPN ---
Progress Note: A&P Assessment and Plan (1) Osteoarthritis of knees, bilateral: Code(s): M17.0 - Bilateral primary osteoarthritis of knee Status: Acute Assessment and Plan: X-ray showed progression of moderate-severe tricompartment osteoarthritis ortho consult thank you for your help Pain regimen tylenol, morphine, and norco ordered Cortisone shots 11/05/21 PT/OT Due to the patient's significant osteoarthritis knee pain she has been slowly declining. Cortisone shots on November 05, 2021 to improve patient's weight-bearing. Physical therapy and occupational therapy working with the patient. Patient has shown mild improvements. Patient with significantly benefit from a rehab facility placement due to prolonged hospitalization and slow physical decline due to multiple comorbidities SNF placement (2) General weakness: Code(s): R53.1 - Weakness Status: Acute Assessment and Plan: Reported weakness and decline in function Secondary to severe morbid obesity and chronic deconditioning Would like placement in a rehab facility and eventual home physical therapy Reports knee immobility cortisone shot 11/05/21 Ortho consult PT/OT (3) Adult failure to thrive: Code(s): R62.7 - Adult failure to thrive Status: Acute Assessment and Plan: See above (4) Elevated glucose level: Code(s): R73.09 - Other abnormal glucose Status: Acute Assessment and Plan: Glucose upon arrival was 211 This morning 99 A1c 5.5 Trend glucose levels Seems to be controlled at this time (5) Obstructive sleep apnea: Code(s): G47.33 - Obstructive sleep apnea (adult) (pediatric) Status: Acute Assessment and Plan: Secondary to chronic obesity Apnea link showed AHI of 30, and looks to have desaturated multiple minutes throughout the night Talk to pulm and recommended and abg, and doing an apnea link with 2LNC at bed time Consider further workup outpatient (6) Morbid obesity with BMI of 50.0-59.9, adult: Code(s): E66.01 - Morbid (severe) obesity due to excess calories; Z68.43 - Body mass index [BMI] 50.0-59.9, adult Status: Acute Assessment and Plan: Life style modification education provided Chief Clinical Dietitian consult Low fat/Calorie diet Consider adding a GLP-1 at discharge (7) Cardiomegaly: Code(s): I51.7 - Cardiomegaly Status: Acute Assessment and Plan: Chest xray and CTA show cardiomegaly BNP elevated at 481 Echo EF of 65-70% with grade 1 diastolic dysfunction Daily weights Strict I&O Hold on diuretics due to low sodium (8) Shortness of breath: Code(s): R06.02 - Shortness of breath Status: Acute Assessment and Plan: Multi contributory finding including obesity, immobility, cardiomegaly Echo EF of 65-70% with grade 1 diastolic dysfunction Trend SPO2 (9) Hypothyroidism, acquired, autoimmune: Code(s): E06.3 - Autoimmune thyroiditis Status: Acute Assessment and Plan: TSH 43.200 T4 <0.07 Consider increasing her home levothyroxine from 50mcg to 75mcg Recheck in 4-6 weeks (10) Hyponatremia: Code(s): E87.1 - Hypo-osmolality and hyponatremia Status: Acute Assessment and Plan: resolved (11) Nocturnal hypoxia: Code(s): G47.34 - Idiopathic sleep related nonobstructive alveolar hypoventilation Status: Acute Assessment and Plan: Apnea noted to have multiple minutes of desaturation Apnea link with oxygen bleed in scheduled for tonight Will need to increase oxygen with apnea link to meet <5mins desaturation up to 4L (12) Acute respiratory failure with hypoxia: Code(s): J96.01 - Acute respiratory failure with hypoxia Status: Acute Assessment and Plan: Patient was found to be hypoxic in the emergency
[2021-11-10 14:00] VITALS: BP 108/70; PULSE 57; RESP 17; TEMP 36.1; O2SAT 97
[2021-11-10 20:43] VITALS: BP 124/68; PULSE 54; RESP 16; TEMP 36.6; O2SAT 98
[2021-11-11] MEDS: HYDROcodone/acetaminophen (*CRX) 5-325 MG TABLET 1 TAB PO ×2 (05:34→14:18)
[2021-11-11] MEDS: LEVOTHYROXINE SODIUM 75 MCG TABLET PO (05:36)
[2021-11-11 06:00] VITALS: BP 131/59; PULSE 61; RESP 18; TEMP 36.5; O2SAT 96
[2021-11-11 08:00] VITALS: O2SAT 96
[2021-11-11] MEDS: ENOXAPARIN 40 MG/0.4 ML SYRINGE SUB-Q (08:16)
[2021-11-11] MEDS: FLUTICASONE PROPIONATE 0.05% NA SPR 16 GM BTL (*BKC) 1 SPRAY NASAL (08:16)
[2021-11-11] MEDS: EUCERIN CREAM 120 GM JAR 1 APPLIC TOPICAL (08:17)
--- NOTE | 2021-11-11 09:30 | PM.DS ---
DS: Admitting Diagnosis Discharge Date 11/11/21929 Admitting Diagnosis Osteoarthritis of the bilateral knee DS: Discharge Diagnosis Discharge Diagnosis (1) Osteoarthritis of knees, bilateral: Code(s): M17.0 - Bilateral primary osteoarthritis of knee Status: Acute Assessment and Plan: X-ray showed progression of moderate-severe tricompartment osteoarthritis ortho consult thank you for your help Pain regimen tylenol, morphine, and norco ordered Cortisone shots 11/05/21 PT/OT Due to the patient's significant osteoarthritis knee pain she has been slowly declining. Cortisone shots on November 05, 2021 to improve patient's weight-bearing. Physical therapy and occupational therapy working with the patient. Patient has shown mild improvements. Patient with significantly benefit from a rehab facility placement due to prolonged hospitalization and slow physical decline due to multiple comorbidities SNF placement (2) General weakness: Code(s): R53.1 - Weakness Status: Acute Assessment and Plan: Reported weakness and decline in function Secondary to severe morbid obesity and chronic deconditioning Would like placement in a rehab facility and eventual home physical therapy Reports knee immobility cortisone shot 11/05/21 Ortho consult PT/OT (3) Adult failure to thrive: Code(s): R62.7 - Adult failure to thrive Status: Acute Assessment and Plan: See above (4) Elevated glucose level: Code(s): R73.09 - Other abnormal glucose Status: Acute Assessment and Plan: Glucose upon arrival was 211 This morning 99 A1c 5.5 Trend glucose levels Seems to be controlled at this time (5) Obstructive sleep apnea: Code(s): G47.33 - Obstructive sleep apnea (adult) (pediatric) Status: Acute Assessment and Plan: Secondary to chronic obesity Apnea link showed AHI of 30, and looks to have desaturated multiple minutes throughout the night Talk to pulm and recommended and abg, and doing an apnea link with 2LNC at bed time Consider further workup outpatient (6) Morbid obesity with BMI of 50.0-59.9, adult: Code(s): E66.01 - Morbid (severe) obesity due to excess calories; Z68.43 - Body mass index [BMI] 50.0-59.9, adult Status: Acute Assessment and Plan: Life style modification education provided Hides Inspector consult Low fat/Calorie diet Consider adding a GLP-1 at discharge (7) Cardiomegaly: Code(s): I51.7 - Cardiomegaly Status: Acute Assessment and Plan: Chest xray and CTA show cardiomegaly BNP elevated at 481 Echo EF of 65-70% with grade 1 diastolic dysfunction Daily weights Strict I&O Hold on diuretics due to low sodium (8) Shortness of breath: Code(s): R06.02 - Shortness of breath Status: Acute Assessment and Plan: Multi contributory finding including obesity, immobility, cardiomegaly Echo EF of 65-70% with grade 1 diastolic dysfunction Trend SPO2 (9) Hypothyroidism, acquired, autoimmune: Code(s): E06.3 - Autoimmune thyroiditis Status: Acute Assessment and Plan: TSH 43.200 T4 <0.07 Consider increasing her home levothyroxine from 50mcg to 75mcg Recheck in 4-6 weeks (10) Hyponatremia: Code(s): E87.1 - Hypo-osmolality and hyponatremia Status: Acute Assessment and Plan: resolved (11) Nocturnal hypoxia: Code(s): G47.34 - Idiopathic sleep related nonobstructive alveolar hypoventilation Status: Acute Assessment and Plan: Apnea noted to have multiple minutes of desaturation Apnea link with oxygen bleed in scheduled for tonight Will need to increase oxygen with apnea link to meet <5mins desaturation up to 4L (12) Acute respiratory failure with hypoxia: Code(s): J96.01 - Acute respirator
--- NOTE | 2021-11-11 09:30 | P.DS_ITS ---
DS: Admitting Diagnosis Discharge Date 11/11/21929 Admitting Diagnosis Osteoarthritis of the bilateral knee DS: Discharge Diagnosis Discharge Diagnosis (1) Osteoarthritis of knees, bilateral: Code(s): M17.0 - Bilateral primary osteoarthritis of knee Status: Acute Assessment and Plan: * X-ray showed progression of moderate-severe tricompartment osteoarthritis * ortho consult thank you for your help * Pain regimen tylenol, morphine, and norco ordered * Cortisone shots 11/05/21 * PT/OT * Due to the patient's significant osteoarthritis knee pain she has been slowly declining. Cortisone shots on November 05, 2021 to improve patient's weight- bearing. Physical therapy and occupational therapy working with the patient. Patient has shown mild improvements. Patient with significantly benefit from a rehab facility placement due to prolonged hospitalization and slow physical decline due to multiple comorbidities * SNF placement (2) General weakness: Code(s): R53.1 - Weakness Status: Acute Assessment and Plan: * Reported weakness and decline in function * Secondary to severe morbid obesity and chronic deconditioning * Would like placement in a rehab facility and eventual home physical therapy * Reports knee immobility * cortisone shot 11/05/21 * Ortho consult * PT/OT (3) Adult failure to thrive: Code(s): R62.7 - Adult failure to thrive Status: Acute Assessment and Plan: * See above (4) Elevated glucose level: Code(s): R73.09 - Other abnormal glucose Status: Acute Assessment and Plan: * Glucose upon arrival was 211 * This morning 99 * A1c 5.5 * Trend glucose levels * Seems to be controlled at this time (5) Obstructive sleep apnea: Code(s): G47.33 - Obstructive sleep apnea (adult) (pediatric) Status: Acute Assessment and Plan: * Secondary to chronic obesity * Apnea link showed AHI of 30, and looks to have desaturated multiple minutes throughout the night * Talk to pulm and recommended and abg, and doing an apnea link with 2LNC at bed time * Consider further workup outpatient (6) Morbid obesity with BMI of 50.0-59.9, adult: Code(s): E66.01 - Morbid (severe) obesity due to excess calories; Z68.43 - Body mass index [BMI] 50.0-59.9, adult Status: Acute Assessment and Plan: * Life style modification education provided * Director Of Music consult * Low fat/Calorie diet * Consider adding a GLP-1 at discharge (7) Cardiomegaly: Code(s): I51.7 - Cardiomegaly Status: Acute Assessment and Plan: * Chest xray and CTA show cardiomegaly * BNP elevated at 481 * Echo EF of 65-70% with grade 1 diastolic dysfunction * Daily weights * Strict I&O * Hold on diuretics due to low sodium (8) Shortness of breath: Code(s): R06.02 - Shortness of breath Status: Acute Assessment and Plan: * Multi contributory finding including obesity, immobility, cardiomegaly * Echo EF of 65-70% with grade 1 diastolic dysfunction * Trend SPO2 (9) Hypothyroidism, acquired, autoimmune: Code(s): E06.3 - Autoimmune thyroiditis Status: Acute Assessment and Plan: * TSH 43.200 * T4 <0.07 * Consider increasing her home levothyroxine from 50mcg to 75mcg * Recheck in 4-6 weeks
--- NOTE | 2021-11-11 10:54 | PCNWS ---
Weekly nutritional screen. Patient is tolerating current diet with adequate intake. No weight loss reported. No nutritional needs at this time.
[2021-11-11 14:04] LABS: EDCOVIDSCREEN Negative (Negative)
[2021-11-11 14:30] VITALS: BP 135/77; PULSE 67; RESP 18; TEMP 36.5; O2SAT 97
== END 2021-11-11 16:30 | disposition swing bed (61) ==
LOC: ANHED 22:56 → ANH2MED 23:06
PROVIDERS: Admitting Provider Internal Medicine; Emergency Provider Emergency Medicine; PCP Internal Medicine; Visit Provider Nurse Practitioner
DX: R53.1 Weakness (principal); M17.0 Bilateral primary osteoarthritis of knee; E66.2 Morbid (severe) obesity with alveolar hypoventilation; J96.01 Acute respiratory failure with hypoxia; R62.7 Adult failure to thrive; I51.7 Cardiomegaly; E06.3 Autoimmune thyroiditis; E78.5 Hyperlipidemia, unspecified; E87.1 Hypo-osmolality and hyponatremia; L40.9 Psoriasis, unspecified; M16.12 Unilateral primary osteoarthritis, left hip; N18.30 Chronic kidney disease, stage 3 unspecified; R73.09 Other abnormal glucose; Z20.822 Contact with and (suspected) exposure to COVID-19; Z90.710 Acquired absence of both cervix and uterus; Z68.43 Body mass index [BMI] 50.0-59.9, adult; R06.02 Shortness of breath
CPT/HCPCS: 36415; 36600; 71045; 71275; 73564; 80048; 80053; 81001; 82375; 82570; 82805; 83036; 83050; 83735; 83880; 83935; 84300; 84439; 84443; 84540; 85025; 87426; 93005; 94762; 96372; 96374; 96375; 96376; 97110; 97161; 97166; 97530; 97535; 99285; A9270; C8929; C9803; G0378; J1650; J1940; J2270; Q9957; Q9967; U0003; U0005

== ENCOUNTER 2021-11-11 17:23 | Inpatient (IN) | payer MEDICARE, SELFPAY ==
[2021-11-11 17:49] VITALS: PULSE 62; RESP 20; O2SAT 95
[2021-11-11 17:58] VITALS: BP 120/64; PULSE 62; RESP 20; TEMP 36.8; O2SAT 95
[2021-11-11 18:00] VITALS: BMI 49.3
--- NOTE | 2021-11-11 18:00 | ADMGEN ---
This patient, nAnel Bhatia, was admitted to 2nd Floor Room 205-2 as SSB pt. Patient/family oriented to hospital policies and general routines including ID bracelet, bed and alarms, visiting hours, pain management, procedures, bathroom and other care routines, personal items, smoking policy, room service/diet, and visiting hours. Information on how to activate the Rapid Response Team has been discussed. Patient/Family are encouraged to report perceived risks to care and to ask questions if they do not understand what they are told or what they should do. Pt reports no pain at this time, food tray given to pt on arrival and pt is fully A&O x3. Call thomas is within pt reach.
--- NOTE | 2021-11-11 18:24 | PC.NURSE ---
Depend placed on pt as pt states she is incont of urine at times and has difficulty getting to BR. Pt is able to assist c turning in bed, wound care of buttocks assessed and pictures taken and placed in pt chart.
[2021-11-11 20:00] VITALS: PULSE 71; RESP 18; O2SAT 93
[2021-11-11] MEDS: FLUTICASONE PROPIONATE 0.05% NA SPR 16 GM BTL (*BKC) 1 SPRAY NASAL (20:57)
--- NOTE | 2021-11-11 21:13 | PC.NURSE ---
Message left for wound nurse at [facility] regarding red areas to buttocks.
[2021-11-11] MEDS: HYDROcodone/acetaminophen (*CRX) 5-325 MG TABLET 1 TAB PO (21:49)
[2021-11-12] VITALS: BP 123/60; PULSE 79; RESP 18; TEMP 36.2; O2SAT 93
[2021-11-12] MEDS: LEVOTHYROXINE SODIUM 75 MCG TABLET PO (06:56)
[2021-11-12] MEDS: HYDROcodone/acetaminophen (*CRX) 5-325 MG TABLET 1 TAB PO ×3 (07:26→19:54)
[2021-11-12] MEDS: FLUTICASONE PROPIONATE 0.05% NA SPR 16 GM BTL (*BKC) 1 SPRAY NASAL ×2 (07:26→20:01)
[2021-11-12 07:32] VITALS: BP 136/89; PULSE 63; RESP 18; TEMP 36.1; O2SAT 93
--- NOTE | 2021-11-12 08:19 | PM.IMHP ---
H&P: HPI History of Present Illness Date/Time: 11/12/21 This is a 81-year-old female with a past medical history of psoriasis, morbid obesity, osteoarthritis, and hypothyroidism that is coming as a swing patient from [facility]. Patient was admitted with hypoxia and weakness. While at [facility] patient she was seen by ortho and given cortisone injection in her knees and they recommended or informed patient she needed a knee replacements. Patient presented the hospital due to inability to move around well at home. Patient has some shortness of breath at time and has prn oxygen According to noted patient was told by ENT that she was in need of a sleep study. Patient denies any chest pain, shortness of breath, nausea, vomiting, diarrhea, constipation, weakness, fatigue. Mrs. Bhatia was informed that she needed weight loss in order to have her knee surgery completed. Patient will be attempted to be started on a GLP-1, for further weight loss pt family will cloth picker the medication and bring it in for her to take . I have explained to patient the importance of participating with therapy or the insurance will deny her without particpation. Discussion and plan for scheduled senior internal auditor pain medication so she can get up. Reviewed labs from [facility] . Chief Complaint: Weakness and REhab Review of Systems Review of Systems: Pain of bilatral knees, Weakness All systems reviewed & are unremarkable except as noted in HPI and below PMFSH Past Medical History Medical History Chronic kidney disease Stage III with baseline creatinine between 1.1 and 1.2. Hyperlipidemia Hypertriglyceridemia Hypothyroidism, acquired, autoimmune Lower back pain Osteoarthritis of knees, bilateral Severe medial compartmental osteoarthritis Osteoarthritis of left hip Psoriasis Surgical History Surgical History H/O: hysterectomy 1984 History of Nestor fundoplication (~2003) To repair a large esophageal hernia Hx of removal of ovary 1986 Family History Family History Mother , At 89 years old Cerebrovascular accident Father , At 92 years old COPD (chronic obstructive pulmonary disease) Sibling Heart disease Cancer Social History Social History Social History: She has been for over 50 years. 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 Her is 96 years old and still hold his medical license. They have 1 son. Code status: Full code Surrogate decision maker: Rancho Bhatia (son) Smoking status: Never smoker Alcohol intake: never Alcohol use details: She used to drink alcohol in moderation in social situations. She has not had an alcoholic beverage since 2019. Substance use: never Spiritual care concerns: No Meds Home Medications and Allergies Home Medications Medication Instructions Recorded Confirmed Type albuterol sulfate [Proventil HFA] 2 puff INHALATION Q6HRT PRN #8.5 g 11/11/21 11/11/21 Rx fluticasone propionate 1 spray INTRANASAL Q12HR #16 g 11/11/21 11/11/21 Rx hydrocodone-acetaminophen 1 tablet PO Q6H PRN #5 tablet 11/11/21 11/11/21 Rx lanolin axkzvkp-hr-j.pet-ceres 1 applic TOPICAL BID #113 g 11/11/21 11/11/21 Rx [Minerin Creme] levothyroxine [Synthroid] 75 mcg PO DAILY@0630 #30 tablet 11/11/21 11/11/21 Rx liraglutide [Victoza 2-Holegr] See Rx Instructions .ROUTE 11/11/21 11/12/21 Rx .COMPLEX #6 ml Allergies Allergy/AdvReac Type Severity Reaction Status Date / Time No Known Allergies Allergy Verified 11/03/21 20:39 Vital Signs Vital Signs - 24 hr 11/11/21 17:49 11/11/21 17:58 11/11/21 20:00 Temperature 98.3 F Pulse Rate 62 62 71 Respiratory Rate 20 20 18 Blood Pressure 120/64 Pulse Oximetry 95 95
[2021-11-12] MEDS: EUCERIN CREAM 120 GM JAR 1 APPLIC TOPICAL ×2 (09:51→16:34)
[2021-11-12 16:00] VITALS: BP 149/86; PULSE 60; RESP 18; TEMP 36.2; O2SAT 95
[2021-11-13] VITALS: BP 117/84; PULSE 80; RESP 20; TEMP 36.1; O2SAT 96
[2021-11-13] MEDS: HYDROcodone/acetaminophen (*CRX) 5-325 MG TABLET 1 TAB PO ×3 (06:02→20:31)
[2021-11-13] MEDS: LEVOTHYROXINE SODIUM 75 MCG TABLET PO (06:02)
[2021-11-13 08:00] VITALS: BP 121/62; PULSE 74; RESP 18; TEMP 36.2; O2SAT 93
--- NOTE | 2021-11-13 08:07 | WPDPN ---
Progress Note: A&P Assessment and Plan (1) Shortness of breath: Code(s): R06.02 - Shortness of breath Status: Acute Assessment and Plan: -- Oxygen 2-4 l with sleep if saturation is under 92% - Inhaler as needed Secondary to obesity (2) Osteoarthritis of knees, bilateral: Qualifiers: Osteoarthritis type: unspecified Qualified Code(s): M17.0 - Bilateral primary osteoarthritis of knee Code(s): M17.0 - Bilateral primary osteoarthritis of knee Status: Acute Assessment and Plan: -- Prn pain medication -- Walk with Walker and work with therapy - Weight loss would help with the pain (3) Morbid obesity with BMI of 50.0-59.9, adult: Code(s): E66.01 - Morbid (severe) obesity due to excess calories; Z68.43 - Body mass index [BMI] 50.0-59.9, adult Status: Acute Assessment and Plan: -- Pt has home medication Juveia for weight loss she will bring it in so we can give her own home medication for weight loss Low fat caloric intake Future bariatric patients (4) General weakness: Code(s): R53.1 - Weakness Status: Acute Assessment and Plan: Fall precaution work with phsysical therapy Make sure patient has adequate nutrition and hydration Monitor labs weekly Pain medication early enough so she can work with therapy (5) Sleep apnea: Code(s): G47.30 - Sleep apnea, unspecified Status: Acute Assessment and Plan: Patient refuses to use her home CPAP Place patient on oxygen 2 to 4 L when sleeping if she will allow otherwise insists if satting less than 92% (6) Hypothyroidism, acquired, autoimmune: Code(s): E06.3 - Autoimmune thyroiditis Status: Acute Assessment and Plan: Continue home medications TSH 43.2 T4,<0.07 Synthroid changed to 75mcg Patient to have labs rechecked in 4-6 weeks which would be any time after December 10 to have those labs redrawn Subjective Date/time seen: 11/13/21 08:07 patient has no complaints at this time she is tolerating all her meals sleeping well having bowel movements and notes that physical therapy is going well. The patient denies SOB, CP, palpitation, extremity numbness, lightheadedness, dizziness, constipation, diarrhea, chills, or fever. Patient also notes that her left knee pain has improved and her pain is being controlled. See report the patient's urine appeared cloudy will order a UA with culture. Was also informed patient is having itching to her buttocks area. Reluctant to give any p.o. Benadryl, may possibly prevent participation in PT OT will order in cream form. Review of Systems Review of Systems: A 14 organ system Review of Systems was performed and pertinent positives included in the HPI, otherwise remaining ROS is negative. Exam Narrative: GENERAL:Well-appearing, morbidly obese, and in no acute distress. HEAD:Normocephalic, atraumatic. EYES: PERRLA . ENT: Nares clear, no rhinorrhea or epistaxis. Mucous membranes moist. CHEST: Clear to auscultation. No respiratory distress. HEART: Regular rate and rhythm. Normal peripheral pulses. ABDOMEN: Soft, nontender, round , normal active bowel sounds. EXTREMITIES: decreased range of motion due to pain . bilateral leg edema. SKIN: Warm, dry, no rash. NEURO: No focal deficits. Alert and oriented x3. Objective Data Vital Signs Vital Signs: Vital Signs - 24 hr 11/12/21 16:00 11/13/21 00:00 Temperature 97.2 F L 96.9 F L Pulse Rate 60 80 Respiratory Rate 18 20 Blood Pressure 149/86 H 117/84 Pulse Oximetry 95 96 Intake/Output Intake/Output: Intake & Output 11/10/21 11/11/21 11/12/21 11/13/21 23:59 23:59 23:59 23:59 Intake Total 2080 450 Balance 2080 450 Meds/Results Medications: Active Medications Generic Name Dose Route Start Last Admin Trade Name Freq PRN Reason Stop Dose Admin Acetaminophen 650 mg 11/11/21 17:31 Acetaminophen 325 Mg Tablet PO Q6H PRN Mild Pain (1-
[2021-11-13] MEDS: FLUTICASONE PROPIONATE 0.05% NA SPR 16 GM BTL (*BKC) 1 SPRAY NASAL ×2 (09:27→20:33)
[2021-11-13] MEDS: EUCERIN CREAM 120 GM JAR 1 APPLIC TOPICAL ×2 (09:27→16:30)
[2021-11-13 12:59] LABS: Appearance Urine Cloudy (Clear); Color Urine Yellow (Yellow); Glucose Urine UA Negative (Negative); Protein Urine Negative (Negative); Specific Grav Ur 1.015 (1.010-1.020); pH Urine 7.5 (5.0-8.0)
[2021-11-13 13:00] LABS: Bilirubin Urine Negative (Negative); Blood Urine Trace (Negative); Ketones Urine Negative (Negative); Nitrate Urine Positive (Negative); Urobilinogen Urine 0.2 mg/dL (0.2-1.0)
[2021-11-13 13:01] LABS: Add Urine Microscopic? YES; Bacteria Urine 3+ /hpf; Leukocyte Esterase Ur 3+ LEU/UL (Negative); RBC Urine None seen /hpf (0-2); Squamous Epithelial Cell Urine Few /hpf (Few); WBC Urine >75 /hpf (0-3)
[2021-11-13 16:00] VITALS: BP 120/72; PULSE 80; RESP 21; TEMP 36.6; O2SAT 94
[2021-11-13] MEDS: traZODone HCL 50 MG TABLET PO (22:30)
[2021-11-13 23:59] VITALS: BP 138/82; PULSE 68; RESP 20; TEMP 36.7; O2SAT 98
[2021-11-14] MEDS: HYDROcodone/acetaminophen (*CRX) 5-325 MG TABLET 1 TAB PO ×3 (06:06→20:31)
[2021-11-14] MEDS: LEVOTHYROXINE SODIUM 75 MCG TABLET PO (06:06)
[2021-11-14 08:00] VITALS: BP 128/74; PULSE 70; RESP 20; TEMP 36; O2SAT 97
[2021-11-14] MEDS: EUCERIN CREAM 120 GM JAR 1 APPLIC TOPICAL ×2 (09:00→17:19)
[2021-11-14] MEDS: FLUTICASONE PROPIONATE 0.05% NA SPR 16 GM BTL (*BKC) 1 SPRAY NASAL ×2 (09:00→20:32)
[2021-11-14 15:37] VITALS: BP 114/68; PULSE 70; RESP 18; TEMP 36.6; O2SAT 96
[2021-11-15] VITALS: BP 126/71; PULSE 56; RESP 20; TEMP 36.2; O2SAT 96
[2021-11-15] MEDS: LEVOTHYROXINE SODIUM 75 MCG TABLET PO (06:03)
[2021-11-15] MEDS: HYDROcodone/acetaminophen (*CRX) 5-325 MG TABLET 1 TAB PO ×2 (06:03→16:05)
[2021-11-15 07:41] VITALS: BP 142/74; PULSE 72; RESP 20; TEMP 36.6; O2SAT 95
[2021-11-15] MEDS: FLUTICASONE PROPIONATE 0.05% NA SPR 16 GM BTL (*BKC) 1 SPRAY NASAL ×2 (08:32→20:53)
[2021-11-15] MEDS: EUCERIN CREAM 120 GM JAR 1 APPLIC TOPICAL ×2 (08:32→17:42)
--- NOTE | 2021-11-15 09:45 | PM.EVENT ---
Event Note Event Note Event Note: Patient UA with the growth of gram-negative bacilli patient currently on Bactrim awaiting sensitivity.
--- NOTE | 2021-11-15 10:24 | PC.NURSE ---
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 not as bright red purple as yesterday. cream applied and encouraged to keep feet elevated.
--- NOTE | 2021-11-15 15:11 | PC.NURSE ---
family has brought in victoza for pt, given to syed in pharmacy
--- NOTE | 2021-11-15 15:22 | PHAR ---
VERIFIED PT.'S HOME MED VICTOZA 18MG/3ML INJ PEN. INJECT 0.6MG SQ DAILY FOR 7 DAYS, THEN 1.2MG DAILY. SHE IS JUST STARTING THIS THERAPY NOW SO IS DAY 1 OF 7. PT. IS TO START 11/16/21 AM PER LICENSED MARINE ENGINEER. TLS
[2021-11-15 16:00] VITALS: BP 137/84; PULSE 62; RESP 18; TEMP 36.8; O2SAT 96
[2021-11-16] VITALS: BP 128/70; PULSE 62; RESP 18; TEMP 35.9; O2SAT 96
[2021-11-16 05:27] LABS: Anion Gap 9 mmol/L (8-16); Blood Urea Nitrogen 22 mg/dL (7-18); Calcium 9.4 mg/dL (8.5-10.1); Carbon Dioxide 27 mmol/L (21-32); Chloride 98 mmol/L (98-108); Estimated Glomerular Filt Rate 52; Glucose 85 mg/dL (70-99); Osmolality Calculated 280 mOsm/kg (285-295); Potassium 4.8 mmol/L (3.5-5.1); Sodium 134 mmol/L (136-145)
[2021-11-16] MEDS: LEVOTHYROXINE SODIUM 75 MCG TABLET PO (06:03)
[2021-11-16] MEDS: HYDROcodone/acetaminophen (*CRX) 5-325 MG TABLET 1 TAB PO ×3 (06:03→21:14)
[2021-11-16 08:00] VITALS: BP 135/70; PULSE 68; RESP 14; TEMP 36.6; O2SAT 98
[2021-11-16] MEDS: FLUTICASONE PROPIONATE 0.05% NA SPR 16 GM BTL (*BKC) 1 SPRAY NASAL ×2 (09:12→21:14)
[2021-11-16] MEDS: EUCERIN CREAM 120 GM JAR 1 APPLIC TOPICAL ×2 (09:21→17:27)
[2021-11-16 10:06] LABS: Glucose Point of Care 106 mg/dl (65-105)
[2021-11-16 16:30] VITALS: BP 120/74; PULSE 62; RESP 18; TEMP 36.5; O2SAT 96
[2021-11-16 19:10] LABS: Glucose Point of Care 79 mg/dl (65-105)
[2021-11-17] VITALS: BP 117/72; PULSE 70; RESP 20; TEMP 36.6; O2SAT 94
[2021-11-17] MEDS: LEVOTHYROXINE SODIUM 75 MCG TABLET PO (06:03)
[2021-11-17] MEDS: HYDROcodone/acetaminophen (*CRX) 5-325 MG TABLET 1 TAB PO ×3 (06:03→21:22)
[2021-11-17 08:00] VITALS: BP 143/83; PULSE 67; RESP 14; TEMP 35.8; O2SAT 97
[2021-11-17] MEDS: FLUTICASONE PROPIONATE 0.05% NA SPR 16 GM BTL (*BKC) 1 SPRAY NASAL ×2 (09:21→21:25)
[2021-11-17] MEDS: EUCERIN CREAM 120 GM JAR 1 APPLIC TOPICAL ×2 (09:28→17:34)
[2021-11-17] MEDS: ACETAMINOPHEN 325 MG TABLET 650 MG PO (10:30)
[2021-11-17 11:54] LABS: Glucose Point of Care 89 mg/dl (65-105)
[2021-11-17 16:20] VITALS: BP 119/83; PULSE 72; RESP 18; TEMP 36.6; O2SAT 99
[2021-11-17 18:09] LABS: Glucose Point of Care 90 mg/dl (65-105)
[2021-11-17 23:55] VITALS: BP 119/79; PULSE 70; RESP 20; TEMP 36.7; O2SAT 96
[2021-11-18 05:22] LABS: Hematocrit 36.6 % (35.0-42.0); Hemoglobin 11.8 g/dL (11.7-13.8); Mean Corpuscular HGB Conc 32.2 g/dL (32.0-36.0); Mean Corpuscular Hemoglobin 31.6 pg (27.0-31.0); Mean Corpuscular Volume 97.9 fL (78.0-102.0); Mean Platelet Volume 10.5 fl (9.2-11.8); Platelet Count Result 289 K/mm3 (150-420); Red Blood Count 3.74 M/mm3 (4.20-5.40); Red Cell Distribution Width 13.5 % (11.6-14.4); White Blood Count 6.5 K/mm3 (4.8-10.8)
[2021-11-18 05:27] LABS: Anion Gap 8 mmol/L (8-16); Blood Urea Nitrogen 27 mg/dL (7-18); Calcium 9.1 mg/dL (8.5-10.1); Carbon Dioxide 27 mmol/L (21-32); Chloride 98 mmol/L (98-108); Estimated Glomerular Filt Rate 47; Glucose 82 mg/dL (70-99); Osmolality Calculated 280 mOsm/kg (285-295); Potassium 4.5 mmol/L (3.5-5.1); Sodium 133 mmol/L (136-145)
[2021-11-18] MEDS: LEVOTHYROXINE SODIUM 75 MCG TABLET PO (06:01)
[2021-11-18] MEDS: HYDROcodone/acetaminophen (*CRX) 5-325 MG TABLET 1 TAB PO ×3 (06:01→21:24)
[2021-11-18 08:00] VITALS: BP 122/80; PULSE 70; RESP 16; TEMP 36.6; O2SAT 96
[2021-11-18] MEDS: EUCERIN CREAM 120 GM JAR 1 APPLIC TOPICAL ×2 (09:20→19:42)
[2021-11-18] MEDS: FLUTICASONE PROPIONATE 0.05% NA SPR 16 GM BTL (*BKC) 1 SPRAY NASAL ×2 (09:20→21:22)
[2021-11-18 09:56] LABS: Glucose Point of Care 110 mg/dl (65-105)
--- NOTE | 2021-11-18 13:04 | PM.EVENT ---
Event Note Event Note Event Note: Patient with the growth of K pnemoniae in her urine currently on Bactrim sensitive to Bactrim
[2021-11-18 16:00] VITALS: BP 126/80; PULSE 72; RESP 14; TEMP 36.6; O2SAT 97
[2021-11-18 19:47] LABS: Glucose Point of Care 106 mg/dl (65-105)
[2021-11-18 23:54] VITALS: BP 120/74; PULSE 56; RESP 18; TEMP 35.9; O2SAT 95
[2021-11-19] MEDS: LEVOTHYROXINE SODIUM 75 MCG TABLET PO (06:21)
[2021-11-19] MEDS: HYDROcodone/acetaminophen (*CRX) 5-325 MG TABLET 1 TAB PO ×3 (06:21→18:27)
[2021-11-19 08:00] VITALS: BP 100/62; PULSE 66; RESP 20; TEMP 36.6; O2SAT 94
[2021-11-19] MEDS: EUCERIN CREAM 120 GM JAR 1 APPLIC TOPICAL ×2 (08:42→16:28)
[2021-11-19] MEDS: FLUTICASONE PROPIONATE 0.05% NA SPR 16 GM BTL (*BKC) 1 SPRAY NASAL ×2 (08:42→21:44)
[2021-11-19 10:12] LABS: Glucose Point of Care 87 mg/dl (65-105)
--- NOTE | 2021-11-19 11:48 | PM.EVENT ---
Event Note Event Note Event Note: Patient requires positioning of her body in ways not feasible in a regular to facilitate breathing and alleviate pain. Patient requires frequent changes in body position to manage pain and prevent skin breakdown. The patient requires the head of the bed to be elevated more than 30 degrees due to neck and throat edema. She has attempted to use pillows but continued to feel shortness of breath.
[2021-11-19 16:00] VITALS: BP 131/77; PULSE 57; RESP 16; TEMP 36.6; O2SAT 97
[2021-11-19] MEDS: ACETAMINOPHEN 325 MG TABLET 650 MG PO (16:26)
--- NOTE | 2021-11-19 17:25 | PC.NURSE ---
PT REQUESTED TO STAY IN BED FOR DINNER. STATES SHE SAT UP TOO LONG IN THE CHAIR TODAY AND HER HIP, AND LEGS WERE REALLY HURTING. DINNER TRAY SET UP. THERAPY IN ROOM WITH PATIENT. PATIENT HAS TAKEN A FEW PHONE CALLS THIS AFTERNOON, WATCHING TELEVISION. FRESH ICE WATER PROVIDED. PT WAS GIVEN APAP PRN FOR PAIN, SEE NOV, UNTIL ABLE TO HAVE NEXT AVAILABLE DOSE OF NORCO. ALL BELONGINGS IN REACH.
[2021-11-20] VITALS: BP 135/76; PULSE 62; RESP 18; TEMP 36.7; O2SAT 96
[2021-11-20] MEDS: HYDROcodone/acetaminophen (*CRX) 5-325 MG TABLET 1 TAB PO ×2 (00:30→06:25)
[2021-11-20] MEDS: LEVOTHYROXINE SODIUM 75 MCG TABLET PO (06:25)
[2021-11-20 07:29] VITALS: BP 121/70; PULSE 56; RESP 16; TEMP 36.8; O2SAT 94
[2021-11-20] MEDS: FLUTICASONE PROPIONATE 0.05% NA SPR 16 GM BTL (*BKC) 1 SPRAY NASAL (08:10)
--- NOTE | 2021-11-20 10:10 | PM.DS ---
DS: Admitting Diagnosis Discharge Date 11/20/2021 Admitting Diagnosis General weakness DS: Discharge Diagnosis Discharge Diagnosis (1) Obesity hypoventilation syndrome: Code(s): E66.2 - Morbid (severe) obesity with alveolar hypoventilation Status: Acute Assessment and Plan: Diet and exercise medication from PCP ordered for weight loss (2) Morbid obesity with BMI of 50.0-59.9, adult: Code(s): E66.01 - Morbid (severe) obesity due to excess calories; Z68.43 - Body mass index [BMI] 50.0-59.9, adult Status: Acute Assessment and Plan: -- Pt has home medication Juveia for weight loss she will bring it in so we can give her own home medication for weight loss Low fat caloric intake Future bariatric patients (3) Lower back pain: Qualifiers: Back pain laterality: unspecified Chronicity: chronic Sciatica presence: without sciatica Qualified Code(s): M54.5 - Low back pain; G89.29 - Other chronic pain Code(s): M54.5 - Low back pain Status: Acute (4) General weakness: Code(s): R53.1 - Weakness Status: Acute Assessment and Plan: Fall precaution work with phsysical therapy Make sure patient has adequate nutrition and hydration Monitor labs weekly Pain medication early enough so she can work with therapy Improving patient wanting to go to half-way. (5) UTI (urinary tract infection): Qualifiers: Hematuria presence: without hematuria Urinary tract infection type: acute cystitis Qualified Code(s): N30.00 - Acute cystitis without hematuria Code(s): N39.0 - Urinary tract infection, site not specified Status: Acute Assessment and Plan: Growing Pneumonie On bactrium 2.5 days left will dicahrge with this (6) Shortness of breath: Code(s): R06.02 - Shortness of breath Status: Acute Assessment and Plan: -- Oxygen 2-4 l with sleep if saturation is under 92% - Inhaler as needed Secondary to obesity (7) Osteoarthritis of knees, bilateral: Qualifiers: Osteoarthritis type: unspecified Qualified Code(s): M17.0 - Bilateral primary osteoarthritis of knee Code(s): M17.0 - Bilateral primary osteoarthritis of knee Status: Acute Assessment and Plan: -- Prn pain medication -- Walk with Walker and work with therapy - Weight loss would help with the pain (8) Sleep apnea: Qualifiers: Sleep apnea type: unspecified type Qualified Code(s): G47.30 - Sleep apnea, unspecified Code(s): G47.30 - Sleep apnea, unspecified Status: Acute Assessment and Plan: Patient refuses to use her home CPAP Place patient on oxygen 2 to 4 L when sleeping if she will allow otherwise insists if satting less than 92% (9) Hypothyroidism, acquired, autoimmune: Code(s): E06.3 - Autoimmune thyroiditis Status: Acute Assessment and Plan: Continue home medications TSH 43.2 T4,<0.07 Synthroid changed to 75mcg Patient to have labs rechecked in 4-6 weeks which would be any time after December 10 to have those labs redrawn DS: Summary Hospital Course Hospital Course: Weakness, rehab, Time Spent with Patient Time attestation: Total time spent providing and/or coordinating discharge services: his is a 81-year-old female with a past medical history of psoriasis, morbid obesity, osteoarthritis, and hypothyroidism that is coming as a swing patient from [facility]. Patient presented here from [place] as a Swing patient for rehabilation so she can go home. Patient has some shortness of breath at time and has prn oxygen According to noted patient was told by ENT that she was in need of a sleep study. Patient denies any chest pain, shortness of breath, nausea, vomiting, diarrhea, constipation, weakness, fatigue. Mrs. Bhatia was informed that she needed weight loss in order to have her knee surgery completed. Patient was started on a GLP-1, for further
[2021-11-20] MEDS: EUCERIN CREAM 120 GM JAR 1 APPLIC TOPICAL (10:31)
--- NOTE | 2021-11-20 14:17 | PC.NURSE ---
1350 report called to [facility] and report given to [facility]. all personal belongings and meds packed and sent with her. ambulance here and care turned over.
--- NOTE | 2021-11-21 12:42 | PC.NURSE ---
NH nurse states they received and understood the orders.
== END 2021-11-20 13:55 | DRG 948 ==
PROVIDERS: Nurse Practitioner; Admitting Provider Internal Medicine; PCP Internal Medicine; Visit Provider Internal Medicine
DX: R53.1 Weakness (principal); N39.0 Urinary tract infection, site not specified; E66.2 Morbid (severe) obesity with alveolar hypoventilation; Z68.43 Body mass index [BMI] 50.0-59.9, adult; N18.30 Chronic kidney disease, stage 3 unspecified; E78.5 Hyperlipidemia, unspecified; E78.1 Pure hyperglyceridemia; E06.3 Autoimmune thyroiditis; L40.9 Psoriasis, unspecified; M16.12 Unilateral primary osteoarthritis, left hip; M17.0 Bilateral primary osteoarthritis of knee; M54.50 Low back pain, unspecified; G89.29 Other chronic pain; R06.02 Shortness of breath; B96.1 Klebsiella pneumoniae [K. pneumoniae] as the cause of diseases classified elsewhere
CPT/HCPCS: 36415; 80048; 81001; 82948; 85027; 87077; 87086; 87088; 87186; 97110; 97161; 97165; 97530; 97535; A9270

== ENCOUNTER 2022-03-13 19:37 | Inpatient (IN) | payer MEDICARE, SELFPAY ==
[2022-03-13] VITALS (28 sets, daily range): BP systolic 109–132; BP diastolic 66–95; PULSE 71–100; RESP 12–25; TEMP 36.8; O2SAT 93–99
--- NOTE | ~2022-03-13 | CT_ITS ---
EXAMINATION: CT abdomen pelvis w con DATE: 03/13/2022 20:58 INDICATION: Abdominal pain, dysuria. Urinary tract infection diagnosed 3 weeks ago. TECHNIQUE: Computed tomography (CT) of the abdomen and pelvis was performed with 100 CC Omnipaque 300 intravenous contrast. Automated exposure control and iterative reconstruction technique were employe d. Exam dose: 1406.46 mGy-cm total exam DLP. COMPARISON: None. FINDINGS: Minimal discoid atelectasis or scarring in the right lower lung. Cardiomegaly. No pericardi al or pleural effusion. There is distention of the gallbladder and sludge and/or stones in the depend ent aspect of the gallbladder lumen. The gallbladder wall does not appear thickened. No pericholecyst ic fluid or fat stranding. No hepatic, splenic, pancreatic or renal space-occupying mass lesion is detected. There are patchy focal areas of diminished enhancement of the right kidney which may be due to pyelon ephritis. 8 mm left renal cyst. No other renal space occupying mass lesion is detected. There is subtle asymmetric mild right perinephric and periureteral fat stranding, which further suppo rts acute pyelonephritis. No urinary tract calculus or hydroureteronephrosis. The urinary bladder is unremarkable. Atherosclerotic calcification but normal caliber of the abdominal aorta and iliac and femoral arterie s. No intraperitoneal or retroperitoneal or pelvic mass lesion or adenopathy or ascites. There are numerous diverticula of the sigmoid and descending colon; no CT evidence of diverticulitis. No bowel obstruction, bowel wall thickening, pneumatosis or intraperitoneal free air. Osteopenia. There is degenerative spurring of the thoracic spine. There is degenerative change at the apophyseal joints of the lumbar spine with associated minimal grade 1 anterolisthesis at L4-5. Bilateral hip osteoarthritis. No suspicious osteolytic or osteoblastic lesions are noted. IMPRESSION: Acute right pyelonephritis is suggested, evidence by patchy enhancement of the right kid brendan and mild right perinephric and periureteral fat stranding Gallbladder distention and gallstones and/or sludge solid consider ultrasound for more definitive evangelina luation of the gallbladder Diverticulosis of the left colon; no CT evidence of diverticulitis Cardiomegaly Reviewed, dictated and finalized at [facility]. Reviewed, dictated and finalized at location [facility]. IMPRESSION: Acute right pyelonephritis is suggested, evidence by patchy enhanc ement of the right kidney and mild right perinephric and periureteral fat stran ding Gallbladder distention and gallstones and/or sludge solid consider ultrasound f or more definitive evaluation of the gallbladder Diverticulosis of the left colon; no CT evidence of diverticulitis Cardiomegaly
--- NOTE | ~2022-03-13 | XR_ITS ---
XR chest 1V 03/17/2022 14:18 Indication: Shortness of breath Procedure: AP portable chest Comparison: 11/03/2021 Findings: Moderate cardiomegaly. No focal air space disease, pulmonary edema, pleural effusion or vesta pected pneumothorax. Small hiatal hernia. No acute osseous abnormality. Impression: 1: No acute cardiopulmonary disease. Reviewed, dictated and finalized at location [facility]. Impression: 1: No acute cardiopulmonary disease.
--- NOTE | ~2022-03-13 | US_ITS ---
EXAMINATION: US venous doppler [facility] DATE: 03/17/2022 14:50 INDICATION: Bilateral lower limb swelling TECHNIQUE: Grayscale ultrasound images without and with compression and Doppler ultrasound images of the bilateral lower extremity veins were obtained. COMPARISON: None. FINDINGS: The visualized portions of right common femoral vein, profunda (deep) femoral vein, femoral vein, pop liteal vein, posterior tibial veins, peroneal veins, gastrocnemius vein and greater saphenous vein ou tflow are patent. The visualized portions of left common femoral vein, profunda femoral vein, femoral vein, popliteal v ein, posterior tibial veins, peroneal veins, gastrocnemius vein and greater saphenous vein outflow ar e patent. IMPRESSION: 1. No deep venous thrombosis in either lower limb. Reviewed, dictated and finalized at location [facility].
--- NOTE | 2022-03-13 19:51 | ED.GENADULT ---
HPI - General Adult General Chief complaint: Urogenital-Female Stated complaint: UTI Source: RN notes reviewed History of Present Illness HPI narrative: Patient presents emergency department from [facility] via EMS for UTI. Patient states that she has been having generalized body aches and temperature up to 100.6 today. She was diagnosed with a UTI this morning was due to get her first antibiotic this evening states that she had a UTI approximately 3 weeks ago and feels like it never fully resolved states that she feels generally fatigued she denies any chest pain or shortness of breath denies a cough does note some diffuse abdominal pain described as cramping denies any nausea vomiting or diarrhea Related Data Allergies Allergy/AdvReac Type Severity Reaction Status Date / Time No Known Allergies Allergy Verified 03/13/22 19:44 Review of Systems Review of Systems: Gen.: Reports fever and body aches Eyes: Denies eye pain or visual change ENT: Denies congestion Respiratory: Denies shortness of breath or cough CV: Denies chest pain or palpitations GI: Reports generalized abdominal pain nausea, emesis or diarrhea reports pain with urination Musculoskeletal: Denies back pain or muscle pain Neuro: Denies numbness, tingling, weakness or focal weakness Skin: Denies rash Except as documented, all other systems reviewed and negative [facility] Past Medical History Medical History Chronic kidney disease Stage III with baseline creatinine between 1.1 and 1.2. Hyperlipidemia Hypertriglyceridemia Hypothyroidism, acquired, autoimmune Lower back pain Osteoarthritis of knees, bilateral Severe medial compartmental osteoarthritis Osteoarthritis of left hip Psoriasis Surgical History Surgical History H/O: hysterectomy 1984 History of Nestor fundoplication (~2003) To repair a large esophageal hernia Hx of removal of ovary 1986 Family History Family History Mother , At 89 years old Cerebrovascular accident Father , At 92 years old COPD (chronic obstructive pulmonary disease) Sibling Heart disease Cancer Social History Social History Social History: She has been for over 50 years. 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 Her is 96 years old and still hold his medical license. They have 1 son. Code status: Full code Surrogate decision maker: Rancho Bhatia (son) Smoking status: Never smoker Alcohol intake: never Alcohol use details: She used to drink alcohol in moderation in social situations. She has not had an alcoholic beverage since 2019. Substance use: never Spiritual care concerns: No Exam Narrative: APPEARANCE: No acute distress, nontoxic, resting in bed EYES: EOMI HEENT: Normocephalic, atraumatic, oral mucosa dry RESPIRATORY: No respiratory distress Clear to auscultation bilaterally with no rhonchi wheezing or rales. CARDIOVASCULAR: Regular rate and rhythm without murmurs rubs or gallops. ABDOMINAL: Soft, nondistended diffusely tender palpation no rebound or guarding MUSCULOSKELETAl: Moves all extremities. No clubbing, cyanosis or edema. NEURO: Awake and alert. Following commands, speech normal, no focal deficits SKIN:: Warm, dry. No rashes lesions or abrasions PSYCHIATRIC: Normal affect/mood, Course Course Emergency Course: Reviewed old records including previous urine culture patient with Klebsiella and November will start on Rocephin as well as sensitive to Rocephin Discussed with Dr. Gonzalez agrees with admission at this time Discussed with patient and family results of workup and diagnosis. Discussed need for admission. Patient and family understand and agree to current treatment plan Vital Signs Vital signs: Vital Sig
[2022-03-13] MEDS: SODIUM CHLORIDE 0.9% IV 1,000 ML 999 ML IV CONT (20:06)
[2022-03-13 20:20] LABS: Basophils Percent Auto 0.4 % (0.2-1.2); Eosinophils Percent Auto 0.2 % (0-4.4); Hemoglobin 11.7 g/dL (12.0-15.0); Immature Granulocyte Absolute 0.07 K/mm3 (0.00-0.031); Immature Granulocyte Percent A 0.7 % (0-0.5); Lymphocytes Absolute Auto 0.86 K/mm3 (0.9-3.2); Lymphocytes Percent Auto 8.5 % (18.3-44.2); Mean Corpuscular HGB Conc 33.4 g/dl (32-36); Mean Corpuscular Hemoglobin 30.2 pg (26-34); Mean Corpuscular Volume 90.2 fl (80-100); Mean Platelet Volume 9.6 fl (7.4-10.4); Monocytes Absolute Auto 0.7 K/mm3 (0.1-0.6); Monocytes Percent Auto 7.3 % (2.6-8.5); Neutrophils Absolute Auto 8.4 K/mm3 (1.3-6.7); Neutrophils Percent Auto 82.9 % (45.5-73.1); Platelet Count Result 253 k/mm3 (150-375); Red Blood Count 3.88 M/mm3 (4.2-5.4); Red Cell Distribution Width 12.9 % (11.5-14.5); White Blood Count 10.1 K/mm3 (4.5-10.0)
[2022-03-13 20:31] LABS: Lipase 67 U/L (23-300)
[2022-03-13 20:31] LABS: Lactic Acid Reflex 0.9 mmol/L (0.7-2.0)
[2022-03-13 20:32] LABS: Alanine Aminotransferase 13 U/L (6-35); Albumin Level 3.7 g/dL (3.5-5.1); Alkaline Phosphatase 101 U/L (38-126); Anion Gap 8 mmol/L (8-16); Aspartate Amino Transferase 19 U/L (14-36); Bilirubin,Total 0.5 mg/dL (0.2-1.3); Blood Urea Nitrogen 11 mg/dL (7-17); Calcium 8.2 mg/dL (8.4-10.2); Carbon Dioxide 25 mmol/L (22-30); Chloride 94 mmol/L (98-107); Estimated CRCL calculation 65 ml/min; Estimated Glomerular Filt Rate > 60; Glucose 119 mg/dL (65-110); Sodium 127 mmol/L (137-145)
[2022-03-13 20:33] LABS: INR 1.1; Prothrombin Time 13.9 Seconds (11.1-14.7)
[2022-03-13 20:34] LABS: Partial Thromboplastin Time 35.8 SECONDS (22.3-36.8)
[2022-03-13] MEDS: POTASSIUM CHLORIDE 20 MEQ TABLET 40 MEQ PO (20:59)
[2022-03-13 21:27] LABS: Appearance Urine Clear (Clear); Bilirubin Urine Negative (Negative); Color Urine Orange (Yellow); Glucose Urine UA Trace mg/dL (Negative); Ketones Urine Trace mg/dL (Negative); Leukocyte Esterase Ur 3+ LEU/UL (Negative); Nitrate Urine Positive (Negative); Protein Urine 1+ mg/dL (Negative); Specific Grav Ur <= 1.005 (1.001-1.035)
[2022-03-13 21:32] LABS: Bacteria Urine Trace /hpf; Mucus Urine Rare /lpf; Squamous Epithelial Cell Urine Occasional /hpf (Few); WBC Clumps Urine Present /HPF; WBC Urine >75 /hpf
[2022-03-13 21:34] LABS: Add Urine Microscopic? YES; Blood Urine Trace (Negative)
[2022-03-13] MEDS: SODIUM CHLORIDE 0.9% IV 1,000 ML 100 ML IV CONT (22:45)
[2022-03-13 23:06] LABS: SARS-CoV-2 RNA PCR Negative
--- NOTE | 2022-03-14 00:04 | PM.IMHP ---
H&P: HPI History of Present Illness Date/Time: 03/13/22 23:00 Chief Complaint: Fever, recurrent UTI Narrative: 81-year-old female with a past medical history of morbid obesity, chronic kidney disease stage 3, hypothyroidism, and hyperlipidemia who presented to the ER from [facility] due to fever and urinary symptoms. The patient was recently treated for UTI 02/19/2022. She was started on nitrofurantoin but her antibiotics were switched to Bactrim when her cultures evidently grew an organism that was resistant to nitrofurantoin. However when the Bactrim was ordered it was only ordered for 3 days. Despite at antibiotic therapy the patient was still having a dysuria. She does have chronic urinary urgency and frequency that is unchanged. She had noticed that her urine at changed to an orange color. She has been having some nausea and dry heaves. She reports that she cannot vomit due to prior Nestor fundoplication. She has a decreased appetite. She reported that she had not had a fever since a week or so ago. However EMS reported the patient had a temperature of 100.6? today. She denies any chest pain. She always has dyspnea on exertion. She still does get up and ambulate with a rolling walker. [facility] since [facility] of 2021. She reports chronic lower extremity edema but reports her edema got better since the longterm place her on Lasix. However Lasix is no longer listed on the patient's home med rec. At the time of my evaluation the patient has no appreciable lower extremity edema. She reports occasional random episodes of 1 loose stool a day but this is not a persistent issue. She denies any abdominal pain but has been having some low back pain but upon further discussion it seems like this back pain has been ongoing for the last week and half to 2 weeks and is likely more right flank pain. This would be more consistent with her CT findings of pyelonephritis. She had not to tell anyone at the longterm about her back pain. Review of Systems Review of Systems: 12 systems were reviewed with pertinent positives and negatives per HPI. Except as documented in the HPI, all other systems were reviewed and are negative. [facility] Past Medical History Medical History (Updated 03/14/22 @ 05:10 by Rina Gonzalez DO) Chronic kidney disease Stage III with baseline creatinine between 1.1 and 1.2. Dental caries Diastolic dysfunction Echocardiogram November 2021: EF 65-70% mildly increased left ventricular wall thickness, diastolic dysfunction grade 1, E/E 13 is mildly elevated, moderate left atrial enlargement, mild aortic valve sclerosis come no pulmonary hypertension Hyperlipidemia Hypertriglyceridemia Hypothyroidism, acquired, autoimmune Lower back pain Obesity, Class III, BMI 40-49.9 (morbid obesity) Down from a prior BMI of over 50 in October 2021 Osteoarthritis of knees, bilateral Severe medial compartmental osteoarthritis Osteoarthritis of left hip Psoriasis Vitamin D deficiency Surgical History Surgical History H/O: hysterectomy 1984 History of Nestor fundoplication (~2003) To repair a large esophageal hernia Hx of removal of ovary 1986 Family History Family History Mother , At 89 years old Cerebrovascular accident Father , At 92 years old COPD (chronic obstructive pulmonary disease) Sibling Heart disease Cancer Social History Social History (Updated 03/14/22 @ 05:06 by Rina Gonzalez DO) Social History: She has been for over 50 years. 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 Her is 96 years old and still hold his medical license. They have 1 son. Code status: Full code Surrogate decision maker: Rancho Bhatia (son) Smoking status: Never smoker Second hand tobacco smoke exposure: No Alcohol intak
[2022-03-14 00:15] VITALS: BMI 43.7
[2022-03-14 00:26] VITALS: BP 118/61; PULSE 76; RESP 18; TEMP 36.3; O2SAT 97; BMI 43.7
--- NOTE | 2022-03-14 01:22 | ADMGEN ---
This patient, Annel Bhatia, was admitted to 3 [facility] Surg Room 321-01. Patient/family oriented to hospital policies and general routines including ID bracelet, bed and alarms, visiting hours, pain management, procedures, bathroom and other care routines, personal items, smoking policy, room service/diet, and visiting hours. Information on how to activate the Rapid Response Team has been discussed. Patient/Family are encouraged to report perceived risks to care and to ask questions if they do not understand what they are told or what they should do.
[2022-03-14] MEDS: SODIUM CHLORIDE 0.9% IV 1,000 ML 100 ML IV CONT ×2 (02:03→20:20)
[2022-03-14] MEDS: LEVOTHYROXINE SODIUM 75 MCG TABLET PO (05:45)
[2022-03-14] MEDS: HYDROcodone/acetaminophen (*CRX) 5-325 MG TABLET 1 TAB PO ×2 (05:46→18:00)
[2022-03-14 06:00] VITALS: BP 121/59; PULSE 88; RESP 22; TEMP 36.7; O2SAT 94
[2022-03-14 06:26] LABS: Basophils Percent Auto 0.3 % (0.2-1.2); Eosinophils Absolute Auto 0.1 K/mm3 (0-0.3); Eosinophils Percent Auto 0.6 % (0-4.4); Hematocrit 33.7 % (37.0-47.0); Immature Granulocyte Absolute 0.04 K/mm3 (0.00-0.031); Immature Granulocyte Percent A 0.5 % (0-0.5); Lymphocytes Absolute Auto 0.83 K/mm3 (0.9-3.2); Lymphocytes Percent Auto 9.5 % (18.3-44.2); Mean Corpuscular HGB Conc 32.6 g/dl (32-36); Mean Corpuscular Hemoglobin 29.7 pg (26-34); Mean Corpuscular Volume 91.1 fl (80-100); Mean Platelet Volume 9.6 fl (7.4-10.4); Monocytes Absolute Auto 0.8 K/mm3 (0.1-0.6); Monocytes Percent Auto 9.6 % (2.6-8.5); Neutrophils Percent Auto 79.5 % (45.5-73.1); Platelet Count Result 254 k/mm3 (150-375); Red Cell Distribution Width 12.9 % (11.5-14.5); White Blood Count 8.8 K/mm3 (4.5-10.0)
[2022-03-14 06:35] LABS: Anion Gap 6 mmol/L (8-16); Blood Urea Nitrogen 10 mg/dL (7-17); Calcium 8.1 mg/dL (8.4-10.2); Carbon Dioxide 27 mmol/L (22-30); Chloride 96 mmol/L (98-107); Estimated Glomerular Filt Rate > 60; Glucose 107 mg/dL (65-110); Magnesium 1.8 mg/dL (1.6-2.3); Potassium 3.3 mmol/L (3.4-5.0); Sodium 129 mmol/L (137-145)
[2022-03-14] MEDS: ENOXAPARIN 40 MG/0.4 ML SYRINGE SUB-Q (09:34)
[2022-03-14] MEDS: FLUTICASONE PROPIONATE 0.05% NA SPR 16 GM BTL (*BKC) 1 SPRAY NASAL ×2 (09:34→20:55)
--- NOTE | 2022-03-14 12:45 | PM.IMPN ---
Progress Note: A&P Assessment and Plan (1) Pyelonephritis of right kidney: Code(s): N12 - Tubulo-interstitial nephritis, not specified as acute or chronic Status: Acute Assessment and Plan: Urine cultures in November grew out Klebsiella Prior culture was sensitive Rocephin Continue Rocephin Blood cultures and urine cultures pending Tailor antibiotics to culture results Trend urine output (2) Abnormal urinalysis: Code(s): R82.90 - Unspecified abnormal findings in urine Status: Acute Assessment and Plan: UA found orange urine, positive nitrates, 3+ leukocyte esterase, greater than 75 wbc's with clumps a trace bacteria Urine culture pending Continue Rocephin Adjust antibiotics with culture results (3) Acute hyponatremia: Code(s): E87.1 - Hypo-osmolality and hyponatremia Status: Acute Assessment and Plan: Sodium upon arrival was 127 currently 129 today Sodium chloride 100 mils an hour Probably secondary to dehydration Hold diuretics for now Trend labs Labs in a.m. (4) Acute hypokalemia: Code(s): E87.6 - Hypokalemia Status: Acute Assessment and Plan: Potassium was 3.0 upon arrival 3.3 this morning The patient received 40 mEq of potassium chloride in the ER. 40 mEq of potassium repeated Magnesium 1.8 Continue trend potassium Labs in a.m. (5) Nocturnal hypoxia: Code(s): G47.34 - Idiopathic sleep related nonobstructive alveolar hypoventilation Status: Acute Assessment and Plan: If patient has not yet had a sleep study she would still benefit from a polysomnogram on discharge. Apnea link from the last admission showed nocturnal hypoxemia Time Spent With Patient Time with patient: Greater than 35 minutes Subjective Date/time seen: 03/14/22 1245 Interval history: 03/14/22 1245 Patient stated that she does not feel any better than she has. Patient also stated that she has been dry heaving however she met. She does have shortness of breath however the shortness of breath is nothing new to her. When I was getting of the review of systems she said honey on how I feel right now I am just sick. She denies any abdominal pain. She is nauseous. She also denied chest pain, sweats, fevers, chills. 03/13/22? 23:00 81-year-old female with a past medical history of morbid obesity, chronic kidney disease stage 3, hypothyroidism, and hyperlipidemia who presented to the ER from [facility] due to fever and urinary symptoms.? The patient was recently treated for UTI 02/19/2022.? She was started on nitrofurantoin but her antibiotics were switched to Bactrim when her cultures evidently grew an organism that was resistant to nitrofurantoin.? However when the Bactrim was ordered it was only ordered for 3 days.? Despite at antibiotic therapy the patient was still having a dysuria.? She does have chronic urinary urgency and frequency that is unchanged.? She had noticed that her urine at changed to an orange color.? She has been having some nausea and dry heaves.? She reports that she cannot vomit due to prior Nestor fundoplication.? She has a decreased appetite.? She reported that she had not had a fever since a week or so ago.? However EMS reported the patient had a temperature of 100.6? today.? She denies any chest pain.? She always has dyspnea on exertion.? She still does get up and ambulate with a rolling walker.? [facility] She reports chronic lower extremity edema but reports her edema got better since the jail place her on Lasix.? However Lasix is no longer listed on the patient's home med rec.? At the time of my evaluation the patient has no appreciable lower extremity edema.? She reports occasional random episodes of 1 loose stool a day but this is not a persistent issue.? She denies any abdominal pain but has been having some
[2022-03-14 14:00] VITALS: BP 110/67; PULSE 65; RESP 16; TEMP 36.3; O2SAT 96
[2022-03-14] MEDS: POTASSIUM CHLORIDE 20 MEQ TABLET 40 MEQ PO (14:16)
[2022-03-14 20:00] VITALS: PULSE 90; RESP 16; O2SAT 96
[2022-03-14 22:00] VITALS: BP 109/64; PULSE 90; RESP 16; TEMP 37.4; O2SAT 96
[2022-03-15] MEDS: SODIUM CHLORIDE 0.9% IV 1,000 ML 100 ML IV CONT ×2 (05:50→16:29)
[2022-03-15 05:54] VITALS: BP 128/71; PULSE 71; RESP 16; TEMP 37.2; O2SAT 97
[2022-03-15 06:59] LABS: Basophils Percent Auto 0.6 % (0.2-1.2); Eosinophils Absolute Auto 0.2 K/mm3 (0-0.3); Eosinophils Percent Auto 3.1 % (0-4.4); Hematocrit 32.8 % (37.0-47.0); Hemoglobin 10.5 g/dL (12.0-15.0); Immature Granulocyte Absolute 0.04 K/mm3 (0.00-0.031); Immature Granulocyte Percent A 0.6 % (0-0.5); Mean Corpuscular Hemoglobin 29.4 pg (26-34); Mean Corpuscular Volume 91.9 fl (80-100); Mean Platelet Volume 9.3 fl (7.4-10.4); Monocytes Absolute Auto 0.7 K/mm3 (0.1-0.6); Monocytes Percent Auto 10.3 % (2.6-8.5); Neutrophils Absolute Auto 4.7 K/mm3 (1.3-6.7); Neutrophils Percent Auto 70.4 % (45.5-73.1); Platelet Count Result 263 k/mm3 (150-375); Red Blood Count 3.57 M/mm3 (4.2-5.4); White Blood Count 6.7 K/mm3 (4.5-10.0)
[2022-03-15 07:10] LABS: Alanine Aminotransferase 13 U/L (6-35); Albumin Level 3.1 g/dL (3.5-5.1); Alkaline Phosphatase 83 U/L (38-126); Anion Gap 6 mmol/L (8-16); Aspartate Amino Transferase 20 U/L (14-36); Bilirubin,Total < 0.1 mg/dL (0.2-1.3); Blood Urea Nitrogen 7 mg/dL (7-17); Carbon Dioxide 22 mmol/L (22-30); Chloride 104 mmol/L (98-107); Estimated Glomerular Filt Rate > 60; Glucose 100 mg/dL (65-110); Magnesium 1.9 mg/dL (1.6-2.3); Potassium 3.6 mmol/L (3.4-5.0); Sodium 132 mmol/L (137-145)
[2022-03-15] MEDS: LEVOTHYROXINE SODIUM 75 MCG TABLET PO (07:43)
[2022-03-15 08:00] VITALS: PULSE 71; RESP 16; O2SAT 97
[2022-03-15] MEDS: ENOXAPARIN 40 MG/0.4 ML SYRINGE SUB-Q (08:32)
[2022-03-15] MEDS: FLUTICASONE PROPIONATE 0.05% NA SPR 16 GM BTL (*BKC) 1 SPRAY NASAL ×2 (08:33→20:03)
[2022-03-15] MEDS: EUCERIN CREAM 120 GM JAR 1 APPLIC TOPICAL ×2 (08:33→16:30)
--- NOTE | 2022-03-15 10:45 | PCPTNOTE ---
Attempted physical therapy initial evaluation, pt refused d/t fatigue. Will continue to follow
--- NOTE | 2022-03-15 11:08 | PCOTNOTE ---
Attempted OT initial evaluation, pt refused d/t fatigue. Will continue to follow.
--- NOTE | 2022-03-15 12:09 | P.PNIM_ITS ---
Progress Note: A&P Assessment and Plan (1) Pyelonephritis of right kidney: Code(s): N12 - Tubulo-interstitial nephritis, not specified as acute or chronic Status: Acute Assessment and Plan: * Urine cultures in November grew out Klebsiella * Prior culture was sensitive Rocephin * Continue Rocephin * Blood cultures and urine cultures pending * Tailor antibiotics to culture results * Trend urine output - 03/15/22: Urine culture returned positive today for E.coli >100K colonies. We are awaiting the sensitivity. Preliminary Blood cultures are without any growth at this time. Pt. reports feeling better. Rocephin is continued at this time while awaiting Sensitivity. (2) Abnormal urinalysis: Code(s): R82.90 - Unspecified abnormal findings in urine Status: Acute Assessment and Plan: * UA found orange urine, positive nitrates, 3+ leukocyte esterase, greater than 75 wbc's with clumps a trace bacteria * Urine culture pending * Continue Rocephin * Adjust antibiotics with culture results - 03/15/22: See plan above for Problem #1. (3) Acute hyponatremia: Code(s): E87.1 - Hypo-osmolality and hyponatremia Status: Acute Assessment and Plan: * Sodium upon arrival was 127 currently 129 today * Sodium chloride 100 mils an hour * Probably secondary to dehydration * Hold diuretics for now * Trend labs * Labs in a.m. - 03/15/22: Improving with Sodium today up to 132. VSS, including BP, so will continue to hold diuretics for now. We will continue to trend labs in AM and monitor VS. Continue NS as there are no signs of hypervolemia. (4) Acute hypokalemia: Code(s): E87.6 - Hypokalemia Status: Resolved Assessment and Plan: * Potassium was 3.0 upon arrival 3.3 this morning * The patient received 40 mEq of potassium chloride in the ER. * 40 mEq of potassium repeated * Magnesium 1.8 * Continue trend potassium * Labs in a.m. - 03/15/22: RESOLVED (5) Nocturnal hypoxia: Code(s): G47.34 - Idiopathic sleep related nonobstructive alveolar hypoventilation Status: Acute Assessment and Plan: * If patient has not yet had a sleep study she would still benefit from a polysomnogram on discharge. * Apnea link from the last admission showed nocturnal hypoxemia - 03/15/22: Will have pt. follow up with PCP upon discharge for referral for a sleep study as outpatient. Time Spent With Patient Time with patient: 15 - 25 minutes Subjective Date/time seen: 03/15/22 1015 This pt. was examined at the bedside today in interval assessment after being admitted to the hospital for Pyelonephritis. She is currently receiving Rocephin IVPB and she reports she is feeling a little bit better today. She has no CP, Dyspnea, N/V/D and no urinary complaints to report at this time. Her urine culture returned today positive for E.coli. Review of Systems Review of Systems: All systems reviewed & are unremarkable except as noted in HPI and below Exam Const: General: comfortable and no acute distress Other: Morbidly obese HENMT: General nose exam: Normal nares present Mouth: Yes moist mucous mem branes Eyes: General: appearance normal, both eyes and all related structures Neck: Neck: supple and no JVD Lymphatic: lymphadenopathy not noted Resp: Effort & Inspection: normal respiratory effort Auscultation: clear to auscultation bilaterally
--- NOTE | 2022-03-15 12:09 | PM.IMPN ---
Progress Note: A&P Assessment and Plan (1) Pyelonephritis of right kidney: Code(s): N12 - Tubulo-interstitial nephritis, not specified as acute or chronic Status: Acute Assessment and Plan: Urine cultures in November grew out Klebsiella Prior culture was sensitive Rocephin Continue Rocephin Blood cultures and urine cultures pending Tailor antibiotics to culture results Trend urine output - 03/15/22: Urine culture returned positive today for E.coli >100K colonies. We are awaiting the sensitivity. Preliminary Blood cultures are without any growth at this time. Pt. reports feeling better. Rocephin is continued at this time while awaiting Sensitivity. (2) Abnormal urinalysis: Code(s): R82.90 - Unspecified abnormal findings in urine Status: Acute Assessment and Plan: UA found orange urine, positive nitrates, 3+ leukocyte esterase, greater than 75 wbc's with clumps a trace bacteria Urine culture pending Continue Rocephin Adjust antibiotics with culture results - 03/15/22: See plan above for Problem #1. (3) Acute hyponatremia: Code(s): E87.1 - Hypo-osmolality and hyponatremia Status: Acute Assessment and Plan: Sodium upon arrival was 127 currently 129 today Sodium chloride 100 mils an hour Probably secondary to dehydration Hold diuretics for now Trend labs Labs in a.m. - 03/15/22: Improving with Sodium today up to 132. VSS, including BP, so will continue to hold diuretics for now. We will continue to trend labs in AM and monitor VS. Continue NS as there are no signs of hypervolemia. (4) Acute hypokalemia: Code(s): E87.6 - Hypokalemia Status: Resolved Assessment and Plan: Potassium was 3.0 upon arrival 3.3 this morning The patient received 40 mEq of potassium chloride in the ER. 40 mEq of potassium repeated Magnesium 1.8 Continue trend potassium Labs in a.m. - 03/15/22: RESOLVED (5) Nocturnal hypoxia: Code(s): G47.34 - Idiopathic sleep related nonobstructive alveolar hypoventilation Status: Acute Assessment and Plan: If patient has not yet had a sleep study she would still benefit from a polysomnogram on discharge. Apnea link from the last admission showed nocturnal hypoxemia - 03/15/22: Will have pt. follow up with PCP upon discharge for referral for a sleep study as outpatient. Time Spent With Patient Time with patient: 15 - 25 minutes Subjective Date/time seen: 03/15/22 1015 This pt. was examined at the bedside today in interval assessment after being admitted to the hospital for Pyelonephritis. She is currently receiving Rocephin IVPB and she reports she is feeling a little bit better today. She has no CP, Dyspnea, N/V/D and no urinary complaints to report at this time. Her urine culture returned today positive for E.coli. Review of Systems Review of Systems: All systems reviewed & are unremarkable except as noted in HPI and below Exam Const: General: comfortable and no acute distress Other: Morbidly obese HENMT: General nose exam: Normal nares present Mouth: Yes moist mucous membranes Eyes: General: appearance normal, both eyes and all related structures Neck: Neck: supple and no JVD Lymphatic: lymphadenopathy not noted Resp: Effort & Inspection: normal respiratory effort Auscultation: clear to auscultation bilaterally Cardio: Rate: regular rate Rhythm: regular rhythm Heart sounds: no gallops, no murmurs and no rubs GI: Inspection: non-distended GI Palp: Yes Soft to palpation and No Tenderness to palpation present (GI) Auscultation: normal bowel sounds Skin: General skin exam: normal color and no rashes or lesions noted Lesions: no lesions noted Rashes: no rashes noted Wounds: no wounds Neuro: General: gait normal Speech: normal speech Motor exam (neuro): 5/5 motor strength present throughout and Normal motor muscle tone present throughout Sensory
[2022-03-15 14:00] VITALS: BP 162/98; PULSE 74; RESP 18; TEMP 36.2; O2SAT 99
[2022-03-15 19:45] VITALS: PULSE 88; RESP 20; O2SAT 98
[2022-03-15] MEDS: HYDROcodone/acetaminophen (*CRX) 5-325 MG TABLET 1 TAB PO (20:01)
[2022-03-15 22:00] VITALS: BP 131/69; PULSE 88; RESP 20; TEMP 36.4; O2SAT 98
[2022-03-15 22:22] VITALS: O2SAT 98
[2022-03-16] MEDS: LEVOTHYROXINE SODIUM 75 MCG TABLET PO (05:22)
[2022-03-16 05:44] VITALS: BP 126/89; PULSE 82; RESP 18; TEMP 36.5; O2SAT 97
[2022-03-16 06:45] LABS: Basophils Percent Auto 0.5 % (0.2-1.2); Eosinophils Absolute Auto 0.2 K/mm3 (0-0.3); Hemoglobin 10.4 g/dL (12.0-15.0); Immature Granulocyte Absolute 0.03 K/mm3 (0.00-0.031); Immature Granulocyte Percent A 0.5 % (0-0.5); Lymphocytes Absolute Auto 1.36 K/mm3 (0.9-3.2); Lymphocytes Percent Auto 23.5 % (18.3-44.2); Mean Corpuscular HGB Conc 31.5 g/dl (32-36); Mean Corpuscular Hemoglobin 29.3 pg (26-34); Mean Platelet Volume 9.4 fl (7.4-10.4); Monocytes Absolute Auto 0.6 K/mm3 (0.1-0.6); Monocytes Percent Auto 9.9 % (2.6-8.5); Neutrophils Absolute Auto 3.6 K/mm3 (1.3-6.7); Neutrophils Percent Auto 61.6 % (45.5-73.1); Platelet Count Result 280 k/mm3 (150-375); Red Blood Count 3.55 M/mm3 (4.2-5.4); Red Cell Distribution Width 12.9 % (11.5-14.5); White Blood Count 5.8 K/mm3 (4.5-10.0)
[2022-03-16 06:55] LABS: Alanine Aminotransferase 14 U/L (6-35); Albumin Level 3.1 g/dL (3.5-5.1); Alkaline Phosphatase 82 U/L (38-126); Anion Gap 6 mmol/L (8-16); Aspartate Amino Transferase 18 U/L (14-36); Bilirubin,Total < 0.1 mg/dL (0.2-1.3); Blood Urea Nitrogen 7 mg/dL (7-17); Carbon Dioxide 22 mmol/L (22-30); Chloride 107 mmol/L (98-107); Estimated Glomerular Filt Rate > 60; Glucose 100 mg/dL (65-110); Magnesium 1.9 mg/dL (1.6-2.3); Potassium 3.4 mmol/L (3.4-5.0); Sodium 135 mmol/L (137-145)
[2022-03-16 07:57] VITALS: PULSE 82; RESP 18; O2SAT 97
[2022-03-16] MEDS: EUCERIN CREAM 120 GM JAR 1 APPLIC TOPICAL ×2 (08:06→17:09)
[2022-03-16] MEDS: ENOXAPARIN 40 MG/0.4 ML SYRINGE SUB-Q (08:06)
[2022-03-16] MEDS: FLUTICASONE PROPIONATE 0.05% NA SPR 16 GM BTL (*BKC) 1 SPRAY NASAL ×2 (08:06→22:00)
[2022-03-16] MEDS: SODIUM CHLORIDE 0.9% IV 1,000 ML 100 ML IV CONT ×2 (08:09→17:09)
--- NOTE | 2022-03-16 08:51 | PC.NURSE ---
pt to possible discharge on po augmentin at discharge, pt awaiting insurance auth for discharge to sn[facility].
[2022-03-16] MEDS: HYDROcodone/acetaminophen (*CRX) 5-325 MG TABLET 1 TAB PO ×3 (09:06→23:08)
--- NOTE | 2022-03-16 09:54 | PM.IMPN ---
Progress Note: A&P Assessment and Plan (1) Pyelonephritis of right kidney: Code(s): N12 - Tubulo-interstitial nephritis, not specified as acute or chronic Status: Acute Assessment and Plan: Urine cultures in November grew out Klebsiella Prior culture was sensitive Rocephin Continue Rocephin Blood cultures and urine cultures pending Tailor antibiotics to culture results Trend urine output - 03/15/22: Urine culture returned positive today for E.coli >100K colonies. We are awaiting the sensitivity. Preliminary Blood cultures are without any growth at this time. Pt. reports feeling better. Rocephin is continued at this time while awaiting Sensitivity. - 03/16/22: Urine positive for E.coli that is sensitive to the Rocephin she is currently receiving. There are multiple options to switch to oral medications at discharge that also cover her infection. She may be switched to one of those upon discharge. (2) Abnormal urinalysis: Code(s): R82.90 - Unspecified abnormal findings in urine Status: Acute Assessment and Plan: UA found orange urine, positive nitrates, 3+ leukocyte esterase, greater than 75 wbc's with clumps a trace bacteria Urine culture pending Continue Rocephin Adjust antibiotics with culture results - 03/16/22: See plan above for Problem #1. (3) Acute hyponatremia: Code(s): E87.1 - Hypo-osmolality and hyponatremia Status: Resolved Assessment and Plan: Sodium upon arrival was 127 currently 129 today Sodium chloride 100 mils an hour Probably secondary to dehydration Hold diuretics for now Trend labs Labs in a.m. - 03/15/22: Improving with Sodium today up to 132. VSS, including BP, so will continue to hold diuretics for now. We will continue to trend labs in AM and monitor VS. Continue NS as there are no signs of hypervolemia. - 03/16/22: Resolved with a sodium level today of 135. (4) Acute hypokalemia: Code(s): E87.6 - Hypokalemia Status: Resolved Assessment and Plan: Potassium was 3.0 upon arrival 3.3 this morning The patient received 40 mEq of potassium chloride in the ER. 40 mEq of potassium repeated Magnesium 1.8 Continue trend potassium Labs in a.m. - 03/15/22: RESOLVED (5) Nocturnal hypoxia: Code(s): G47.34 - Idiopathic sleep related nonobstructive alveolar hypoventilation Status: Acute Assessment and Plan: If patient has not yet had a sleep study she would still benefit from a polysomnogram on discharge. Apnea link from the last admission showed nocturnal hypoxemia - 03/16/22: Will have pt. follow up with PCP upon discharge for referral for a sleep study as outpatient. Time Spent With Patient Time with patient: 15 - 25 minutes Subjective Date/time seen: 03/16/22 0830 CC was examined at the bedside this morning in interval assessment. She is being treated for a UTI currently whose culture returned positive for E.coli that is sensitive to the current IV abx she is receiving and also has multiple appropriate options for outpatient abx as well for discharge. She has no new complaints today. Barrier to discharge: Acceptance of insurance to allow her to go to skilled part of care center. Review of Systems Review of Systems: All systems reviewed & are unremarkable except as noted in HPI and below Exam Narrative: Const:?? General: comfortab le and no acute di stress? Other: Mor bidly obese HENMT:?? General nose exam: Normal nares pres ent? Mouth: Yes mo ist mucous membran es Eyes:?? General: appearanc e normal, both eye s and all related structures Neck:?? Neck: supple and n o JVD? Lymphatic:
--- NOTE | 2022-03-16 11:20 | PC.NURSE ---
Addendum entered by Meghna Pabon RN 03/16/22 11:23: c/o pain reported to [facility] provider, pyridium 100 mg tid x2 days Original Note: c/o pain reported to [facility] provider, pyridium 100 mg tid x3 days
--- NOTE | 2022-03-16 11:40 | PCPTNOTE ---
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
[2022-03-16 14:00] VITALS: BP 149/81; PULSE 71; RESP 20; TEMP 36.1; O2SAT 100
[2022-03-16] MEDS: PHENAZOPYRIDINE HCL 100 MG TABLET PO (17:09)
[2022-03-16 22:00] VITALS: BP 141/83; PULSE 71; RESP 16; TEMP 35.9; O2SAT 97
[2022-03-17] MEDS: HYDROcodone/acetaminophen (*CRX) 5-325 MG TABLET 1 TAB PO ×2 (05:33→21:12)
[2022-03-17] MEDS: LEVOTHYROXINE SODIUM 75 MCG TABLET PO (05:36)
[2022-03-17 06:00] VITALS: BP 153/104; PULSE 74; RESP 15; TEMP 36.2; O2SAT 95
[2022-03-17 06:37] LABS: Basophils Absolute Auto 0.1 K/mm3 (0.0-0.1); Basophils Percent Auto 0.7 % (0.2-1.2); Eosinophils Absolute Auto 0.3 K/mm3 (0-0.3); Eosinophils Percent Auto 4.6 % (0-4.4); Hematocrit 31.5 % (37.0-47.0); Hemoglobin 10.3 g/dL (12.0-15.0); Immature Granulocyte Absolute 0.07 K/mm3 (0.00-0.031); Immature Granulocyte Percent A 0.9 % (0-0.5); Lymphocytes Absolute Auto 1.64 K/mm3 (0.9-3.2); Lymphocytes Percent Auto 22.1 % (18.3-44.2); Mean Corpuscular HGB Conc 32.7 g/dl (32-36); Mean Corpuscular Hemoglobin 29.5 pg (26-34); Mean Corpuscular Volume 90.3 fl (80-100); Monocytes Absolute Auto 0.6 K/mm3 (0.1-0.6); Monocytes Percent Auto 8.1 % (2.6-8.5); Neutrophils Absolute Auto 4.7 K/mm3 (1.3-6.7); Neutrophils Percent Auto 63.6 % (45.5-73.1); Platelet Count Result 328 k/mm3 (150-375); Red Blood Count 3.49 M/mm3 (4.2-5.4); Red Cell Distribution Width 13.1 % (11.5-14.5); White Blood Count 7.4 K/mm3 (4.5-10.0)
[2022-03-17] MEDS: SODIUM CHLORIDE 0.9% IV 1,000 ML 100 ML IV CONT (06:50)
[2022-03-17 06:57] LABS: Anion Gap 5 mmol/L (8-16); Blood Urea Nitrogen 5 mg/dL (7-17); Calcium 7.8 mg/dL (8.4-10.2); Carbon Dioxide 24 mmol/L (22-30); Chloride 106 mmol/L (98-107); Estimated Glomerular Filt Rate > 60; Glucose 99 mg/dL (65-110); Potassium 3.3 mmol/L (3.4-5.0); Sodium 135 mmol/L (137-145)
[2022-03-17 08:00] VITALS: PULSE 74; RESP 15; O2SAT 95
[2022-03-17] MEDS: FLUTICASONE PROPIONATE 0.05% NA SPR 16 GM BTL (*BKC) 1 SPRAY NASAL ×2 (08:31→21:00)
[2022-03-17] MEDS: ENOXAPARIN 40 MG/0.4 ML SYRINGE SUB-Q (08:31)
[2022-03-17] MEDS: POTASSIUM CHLORIDE 20 MEQ TABLET 40 MEQ PO (08:31)
[2022-03-17] MEDS: PHENAZOPYRIDINE HCL 100 MG TABLET PO ×3 (08:31→16:00)
[2022-03-17] MEDS: EUCERIN CREAM 120 GM JAR 1 APPLIC TOPICAL ×2 (08:32→16:00)
--- NOTE | 2022-03-17 09:55 | PCPTNOTE ---
Patient refused treatment this session stating she is being discharged today.
--- NOTE | 2022-03-17 13:51 | PM.IMPN ---
Progress Note: A&P Assessment and Plan (1) Pyelonephritis of right kidney: Code(s): N12 - Tubulo-interstitial nephritis, not specified as acute or chronic Status: Acute Assessment and Plan: Blood cultures showed no growth today. Urine culture showed E coli, with sensitivity to Rocephin. Discussed with ID pharmacist, who advised transition patient to oral Augmentin for additional course of 2-5 more days antibiotic treatment. She continues to have frequent urination every 45 minutes or so, and does endorse burning with her urination. She denies blood in the urine. Will transition her stated p.o. antibiotics see how she does this as we address other issues as below. (2) Abnormal urinalysis: Code(s): R82.90 - Unspecified abnormal findings in urine Status: Acute Assessment and Plan: UA found orange urine, positive nitrates, 3+ leukocyte esterase, greater than 75 wbc's with clumps a trace bacteria See plan above for Problem #1. (3) Acute hyponatremia: Code(s): E87.1 - Hypo-osmolality and hyponatremia Status: Resolved Assessment and Plan: Sodium upon arrival was 127 currently 129 today The patient's sodium 135 today. She does appear acutely fluid overloaded with significant lower extremity swelling he and adventitious lung sounds. Labs in a.m. We will re-initiate her diuretics and her holding IV fluids (4) Acute hypokalemia: Code(s): E87.6 - Hypokalemia Status: Resolved Assessment and Plan: Potassium was 3.0 upon arrival 3.3 today Patient received an additional 40 mEq potassium this morning, will recheck a.m. labs. Magnesium 1.9 yesterday Continue trend potassium Labs in a.m. (5) Nocturnal hypoxia: Code(s): G47.34 - Idiopathic sleep related nonobstructive alveolar hypoventilation Status: Acute Assessment and Plan: If patient has not yet had a sleep study she would still benefit from a polysomnogram on discharge. Apnea link from the last admission showed nocturnal hypoxemia Will have pt. follow up with PCP upon discharge for referral for a sleep study as outpatient. (6) Heart failure: Code(s): I50.9 - Heart failure, unspecified Status: Acute Assessment and Plan: November of 2021 echo showed grade 1 left ventricular diastolic dysfunction, left atrial chamber dimension moderately enlarged, preserved LVEF, mild AV sclerosis. Patient does report a past diagnosis of heart failure, though she does report she is neglecting her health to care for her 89-year-old . She believes she was at 1 point on 80 mg of Lasix daily, but she is irregular with taking this medication. Due to her dehydration, hyponatremia, and UTI, she was receiving IV fluids during her stay here. However at this point she does appear to be slightly fluid overloaded, and I will give a 1 time dose of IV Lasix 20 mg now, followed by an a.m. oral dose of 20 mg. Renal Functions are normal currently. Will continue to monitor in AM. (7) Shortness of breath: Code(s): R06.02 - Shortness of breath Status: Acute Assessment and Plan: Patient is oxygenating well on room air at this time, however she does show some increased work of breathing on my exam. We will continue her albuterol q.6 hours p.r.n. for shortness of breaths. Chest x-ray was ordered. IV fluids discontinued, and Lasix given. (8) Bilateral edema of lower extremity: Code(s): R60.0 - Localized edema Status: Acute Assessment and Plan: Swelling and pain on physical exam, will order bilateral venous duplex, stop IV fluids, diurese Benjie russell Plan At this time barriers to discharge include significantly increased lower extremity swelling with calf pain pending venous duplex to rule out DVT, worsening shortness of breath, and need for further diuresis. Continue Lovenox for DVT prophylaxis. Subjective Date
[2022-03-17 14:00] VITALS: BP 142/88; PULSE 74; RESP 18; TEMP 36.8; O2SAT 96
--- NOTE | 2022-03-17 14:40 | PC.NURSE ---
CXR CLEAR 03/17/22
--- NOTE | 2022-03-17 14:44 | PCNWS ---
Weekly nutritional screen. Patient is tolerating current diet with adequate intake. No weight loss reported. No nutritional needs at this time. Pt is eating 100% of meals, reports good appetite, reports no recent wt loss, and is enjoying the food provided. Agree with orders.
--- NOTE | 2022-03-17 15:20 | PCNSR ---
On 03/17/22, the student, Jessica Hardy, provided care and completed [facility] documentation on this patient. I have reviewed the student's documentation and agree with the findings.
[2022-03-17] MEDS: FUROSEMIDE INJ 40 MG/4 ML VIAL 20 MG IV PUSH (18:16)
[2022-03-17 20:00] VITALS: PULSE 74; RESP 18; O2SAT 96
[2022-03-17] MEDS: AMOXICILLIN/CLAVULANATE K 875-125 MG TAB 1 TABLET PO (21:00)
[2022-03-17 21:54] VITALS: BP 150/66; PULSE 72; RESP 18; TEMP 36.4; O2SAT 98
[2022-03-18 05:15] VITALS: BP 166/90; PULSE 110; RESP 22; TEMP 36.1; O2SAT 98
[2022-03-18] MEDS: LEVOTHYROXINE SODIUM 75 MCG TABLET PO (05:48)
[2022-03-18] MEDS: PHENAZOPYRIDINE HCL 100 MG TABLET PO ×2 (05:51→12:14)
[2022-03-18 06:26] LABS: Basophils Absolute Auto 0.1 K/mm3 (0.0-0.1); Basophils Percent Auto 0.7 % (0.2-1.2); Eosinophils Absolute Auto 0.4 K/mm3 (0-0.3); Eosinophils Percent Auto 4.5 % (0-4.4); Hematocrit 32.9 % (37.0-47.0); Hemoglobin 10.8 g/dL (12.0-15.0); Immature Granulocyte Absolute 0.09 K/mm3 (0.00-0.031); Immature Granulocyte Percent A 1.1 % (0-0.5); Lymphocytes Absolute Auto 1.61 K/mm3 (0.9-3.2); Lymphocytes Percent Auto 19.1 % (18.3-44.2); Mean Corpuscular HGB Conc 32.8 g/dl (32-36); Mean Corpuscular Hemoglobin 29.6 pg (26-34); Mean Corpuscular Volume 90.1 fl (80-100); Mean Platelet Volume 9.4 fl (7.4-10.4); Monocytes Absolute Auto 0.6 K/mm3 (0.1-0.6); Monocytes Percent Auto 6.9 % (2.6-8.5); Neutrophils Absolute Auto 5.7 K/mm3 (1.3-6.7); Neutrophils Percent Auto 67.7 % (45.5-73.1); Platelet Count Result 406 k/mm3 (150-375); Red Blood Count 3.65 M/mm3 (4.2-5.4); Red Cell Distribution Width 13.2 % (11.5-14.5); White Blood Count 8.4 K/mm3 (4.5-10.0)
[2022-03-18 06:34] LABS: Anion Gap 6 mmol/L (8-16); Blood Urea Nitrogen 5 mg/dL (7-17); Calcium 8.4 mg/dL (8.4-10.2); Carbon Dioxide 26 mmol/L (22-30); Chloride 104 mmol/L (98-107); Estimated Glomerular Filt Rate > 60; Glucose 99 mg/dL (65-110); Potassium 3.5 mmol/L (3.4-5.0); Sodium 136 mmol/L (137-145)
[2022-03-18 08:54] VITALS: O2SAT 95
[2022-03-18 09:18] VITALS: BP 151/108; PULSE 106; RESP 20; TEMP 36.4; O2SAT 96
[2022-03-18] MEDS: AMOXICILLIN/CLAVULANATE K 875-125 MG TAB 1 TABLET PO (09:22)
[2022-03-18] MEDS: ENOXAPARIN 40 MG/0.4 ML SYRINGE SUB-Q (09:22)
[2022-03-18] MEDS: FUROSEMIDE 20 MG TABLET PO (09:22)
[2022-03-18] MEDS: FLUTICASONE PROPIONATE 0.05% NA SPR 16 GM BTL (*BKC) 1 SPRAY NASAL (09:23)
[2022-03-18] MEDS: EUCERIN CREAM 120 GM JAR 1 APPLIC TOPICAL (09:23)
[2022-03-18] MEDS: HYDROcodone/acetaminophen (*CRX) 5-325 MG TABLET 1 TAB PO (09:46)
--- NOTE | 2022-03-18 13:17 | PM.DS ---
DS: Admitting Diagnosis Discharge Date 03/18/2022 1600 Admitting Diagnosis pyelonephritis DS: Discharge Diagnosis Discharge Diagnosis (1) Pyelonephritis of right kidney: Code(s): N12 - Tubulo-interstitial nephritis, not specified as acute or chronic Status: Acute Assessment and Plan: Blood cultures showed no growth. Urine culture showed E coli, with sensitivity to Rocephin. Discussed with ID pharmacist, who advised transition patient to oral Augmentin for additional course of 2-5 more days antibiotic treatment. She continues to have frequent urination but denies urinary symptoms today, or blood in the urine. Will transition her stated p.o. antibiotics which she will continue upon discharge. Discussed this with the patient. (2) Abnormal urinalysis: Code(s): R82.90 - Unspecified abnormal findings in urine Status: Acute Assessment and Plan: UA found orange urine, positive nitrates, 3+ leukocyte esterase, greater than 75 wbc's with clumps a trace bacteria See plan above for Problem #1. (3) Acute hyponatremia: Code(s): E87.1 - Hypo-osmolality and hyponatremia Status: Resolved Assessment and Plan: The patient's sodium 136 today. We diuresed her yesterday, and she does not appear clinically fluid overloaded at this time. Continue PO Lasix, IVF d/c. (4) Acute hypokalemia: Code(s): E87.6 - Hypokalemia Status: Resolved Assessment and Plan: Potassium 3.5 today Magnesium 2.0 today Will continue K supplementation upon discharge with her lasix. Will repeat CMP in 2 weeks to check. (5) Nocturnal hypoxia: Code(s): G47.34 - Idiopathic sleep related nonobstructive alveolar hypoventilation Status: Acute Assessment and Plan: If patient has not yet had a sleep study she would still benefit from a polysomnogram on discharge. Apnea link from the last admission showed nocturnal hypoxemia Will have pt. follow up with PCP upon discharge for referral for a sleep study as outpatient. (6) Heart failure: Code(s): I50.9 - Heart failure, unspecified Status: Acute Assessment and Plan: November of 2021 echo showed grade 1 left ventricular diastolic dysfunction, left atrial chamber dimension moderately enlarged, preserved LVEF, mild AV sclerosis. Patient does report a past diagnosis of heart failure, though she does report she is neglecting her health to care for her 96-year-old . She believes she was at 1 point on 80 mg of Lasix daily, but she is irregular with taking this medication. 03/17- Due to her dehydration, hyponatremia, and UTI, she was receiving IV fluids during her stay here. However at this point she does appear to be slightly fluid overloaded, and I will give a 1 time dose of IV Lasix 20 mg now, followed by an a.m. oral dose of 20 mg. Renal Functions are normal currently. Will continue to monitor. 03/18- Patient is euvolemic at this time after gentle diuresis. She is breathing comfortably on room air. CXR and physical exam showed no evidence of pulmonary vascular congestion or airspace opacities. (7) Shortness of breath: Code(s): R06.02 - Shortness of breath Status: Acute Assessment and Plan: Patient is oxygenating well on room air at this time, lung sounds were clear, no wheezing or crackles. She herself reports she is feeling back to her baseline. She said she has occasional shortness of breath, was seen by an ENT and had PFTs performed, which were normal. She has no concerns with her breathing at this time. We will continue her albuterol q.6 hours p.r.n. for shortness of breaths. Chest x-ray was ordered and showed no acute cardiopulmonary process. IV fluids discontinued, and Lasix given for diuresis. (8) Bilateral edema of lower extremity: Code(s): R60.0 - Localized edema Status: Acute Assessment and Plan: Mild swelling with some pain wit
[2022-03-18 13:21] VITALS: BP 158/84; PULSE 88; RESP 20; O2SAT 96
[2022-03-18 14:02] VITALS: BP 126/65; PULSE 108; RESP 20; TEMP 36; O2SAT 95
[2022-03-18 14:28] LABS: EDCOVIDSCREEN Negative (Negative)
== END 2022-03-18 15:45 | DRG 690 ==
LOC: ANHED 22:16 → ANH3MEDSUR 23:20
PROVIDERS: Nurse Practitioner; Nurse Practitioner Adult Health; Admitting Provider Internal Medicine; Emergency Provider Emergency Medicine; PCP Internal Medicine; Visit Provider Student in an Organized Health Care Education/Training Program
DX: N10 Acute pyelonephritis (principal); E87.1 Hypo-osmolality and hyponatremia; I50.32 Chronic diastolic (congestive) heart failure; Z68.41 Body mass index [BMI] 40.0-44.9, adult; B96.20 Unspecified Escherichia coli [E. coli] as the cause of diseases classified elsewhere; E87.6 Hypokalemia; E86.0 Dehydration; N18.30 Chronic kidney disease, stage 3 unspecified; E78.5 Hyperlipidemia, unspecified; Z20.822 Contact with and (suspected) exposure to COVID-19; G47.34 Idiopathic sleep related nonobstructive alveolar hypoventilation; R60.0 Localized edema; M17.0 Bilateral primary osteoarthritis of knee; M16.12 Unilateral primary osteoarthritis, left hip; L40.9 Psoriasis, unspecified; E06.3 Autoimmune thyroiditis; E66.01 Morbid (severe) obesity due to excess calories; E55.9 Vitamin D deficiency, unspecified; Z90.710 Acquired absence of both cervix and uterus
CPT/HCPCS: 36415; 51701; 71045; 74177; 80048; 80053; 81001; 83605; 83690; 83735; 85025; 85610; 85730; 87040; 87077; 87086; 87088; 87186; 87426; 93970; 96360; 96361; 97116; 97161; 97165; 97530; 99285; A9270; C9803; G0378; J0696; J1650; J1940; J7030; Q9967; U0003; U0005

== ENCOUNTER 2022-03-29 06:47 | Inpatient (IN) | payer MEDICARE, MEDICAID, SELFPAY ==
[2022-03-29] VITALS (8 sets, daily range): BP systolic 123–148; BP diastolic 63–95; PULSE 74–103; RESP 18–22; TEMP 36.1–36.4; O2SAT 76–98; BMI 46.0
--- NOTE | ~2022-03-29 | US_ITS ---
US abdomen limited INDICATION: Right upper quadrant pain. Elevated liver function tests. PROCEDURE: Realtime right upper abdominal ultrasound. COMPARISON: No prior studies for comparison. FINDINGS: The pancreas is echogenic with mild pancreatic ductal dilation measuring 3.7 mm. Pancreatic tail obscured by bowel gas. Liver echotexture is increased, consistent with fatty infiltration. Th ere is normal directional flow in the portal vein. There are gallstones and gallbladder sludge. There is gallbladder wall thickening with pericholecysti c fluid. Common bile duct measures 9.5 mm. No sonographic Grimes's sign. IMPRESSION: 1: Cholelithiasis with gallbladder wall thickening and pericholecystic fluid. Mild biliary dilatation . This constellation of findings is suspicious for cholecystitis. 2: Echogenic pancreas with mild ductal dilation. Consider pancreatitis in the appropriate clinical se tting. 3: Hepatic steatosis. Reviewed, dictated and finalized at location A. IMPRESSION: 1: Cholelithiasis with gallbladder wall thickening and pericholecystic fluid. M ild biliary dilatation. This constellation of findings is suspicious for cholec ystitis. 2: Echogenic pancreas with mild ductal dilation. Consider pancreatitis in the a ppropriate clinical setting. 3: Hepatic steatosis.
--- NOTE | ~2022-03-29 | MR_ITS ---
EXAMINATION: MR MRCP wo/w con/w 3D wo ind DATE: 03/30/2022 13:32 INDICATION: Dilated bile duct TECHNIQUE: Magnetic resonance imaging (MRI) of the abdomen was performed without and with intravenous contrast. Sequences included coronal T2-weighted SS-FSE ARC, coronal T2-weighted FS SS-FSE, coronal T2-weighted 2D FS FIESTA, Water:Coronal LAVA-Flex, sagittal T2-weighted SS-FSE ARC, axial SSFSE ARC, axial 3D DualEcho, axial DWI B=600, axial T1-weighted LAVA, FAT:Coronal LAVA-Flex, and coronal in and opposed phase LAVA-Flex. Thick-slab T2-weighted FRFSE-XL images were obtained for magnetic resonance cholangiopancreatography (MRCP). Maximum intensity projection 3-D reconstructions of the volumetric data were created by the technologist. Postcontrast sequences included a time course of axial T1-weig hted LAVA, FAT:Coronal LAVA-Flex, coronal in and opposed phase LAVA-Flex, and Water:Coronal LAVA-Flex . COMPARISON: Ultrasound, 03/29/2022; CT, 03/13/2022 CONTRAST: Multihance, 20 cc FINDINGS: ABDOMEN MRI: The gallbladder is distended. There are multiple stones in the gallbladder. There is wal l thickening of the gallbladder with pericholecystic fluid. The liver, spleen, pancreas, and adrenal glands are normal. Cysts of the kidneys measure up to 9 mm on the left. There are no pathologically e nlarged abdominal lymph nodes. There are no dilated loops of bowel. ABDOMEN MRCP: No stones are present in the common bile duct. The common bile duct measures up to 7 mm , normal for patient age. The pancreatic duct is normal in course and caliber. Pancreas divisum is no aide. IMPRESSION: 1. Cholelithiasis and acute cholecystitis without choledocholithiasis. Reviewed, dictated and finalized at location B.
--- NOTE | ~2022-03-29 | XR_ITS ---
XR chest 1V portable 03/29/2022 08:03 Indication: Chest pain and weakness Procedure: AP portable chest Comparison: Comparison to multiple prior studies sequentially, with oldest reviewed study dated 07/08. Findings: Cardiomegaly. Prominent left cardiophrenic angle fat pad with probable associated scarring/ atelectasis. No acute focal pneumonia, edema or effusion. No pneumothorax. There is atherosclerosis o f the aorta. Impression: 1: No acute cardiopulmonary disease. 2: Cardiomegaly. Reviewed, dictated and finalized at location A. Impression: 1: No acute cardiopulmonary disease. 2: Cardiomegaly.
--- NOTE | 2022-03-29 06:52 | ECG_ITS ---
Measurements Intervals [place] Rate: 76 P: 6 [place]: 138 QRS: -8 QRSD: 86 T: 80 QT: 366 QTc: 412 Interpretive Statements SINUS OR ECTOPIC ATRIAL RHYTHM LOW QRS VOLTAGE IN PRECORDIAL LEADS INFERIOR INFARCT, AGE INDETERMINATE BORDERLINE ST-T WAVE ABNORMALITY- HIGH LATERAL LEADS BASELINE ARTIFACT- I, II, AVR, V4 ABNORMAL ECG Electronically Signed On 03-29-2022 16:53:48 CDT by Feroz Kang D.O.
[2022-03-29 07:06] LABS: Basophils Percent Auto 0.3 % (0.2-1.2); Eosinophils Absolute Auto 0.1 K/mm3 (0-0.3); Eosinophils Percent Auto 0.4 % (0-4.4); Hematocrit 39.9 % (37.0-47.0); Immature Granulocyte Absolute 0.05 K/mm3 (0.00-0.031); Immature Granulocyte Percent A 0.4 % (0-0.5); Lymphocytes Absolute Auto 0.81 K/mm3 (0.9-3.2); Lymphocytes Percent Auto 6.9 % (18.3-44.2); Mean Corpuscular HGB Conc 32.6 g/dl (32-36); Mean Corpuscular Volume 92.1 fl (80-100); Mean Platelet Volume 9.9 fl (7.4-10.4); Monocytes Absolute Auto 0.8 K/mm3 (0.1-0.6); Monocytes Percent Auto 6.9 % (2.6-8.5); Neutrophils Absolute Auto 9.9 K/mm3 (1.3-6.7); Neutrophils Percent Auto 85.1 % (45.5-73.1); Platelet Count Result 388 k/mm3 (150-375); Red Blood Count 4.33 M/mm3 (4.2-5.4); Red Cell Distribution Width 13.5 % (11.5-14.5); White Blood Count 11.7 K/mm3 (4.5-10.0)
[2022-03-29 07:16] LABS: Alanine Aminotransferase 585 U/L (6-35); Alkaline Phosphatase 369 U/L (38-126); Anion Gap 8 mmol/L (8-16); Aspartate Amino Transferase 701 U/L (14-36); Bilirubin,Total 3.9 mg/dL (0.2-1.3); Blood Urea Nitrogen 8 mg/dL (7-17); Calcium 8.8 mg/dL (8.4-10.2); Carbon Dioxide 27 mmol/L (22-30); Chloride 96 mmol/L (98-107); Estimated Glomerular Filt Rate > 60; Glucose 116 mg/dL (65-110); Potassium 3.9 mmol/L (3.4-5.0); Sodium 131 mmol/L (137-145)
[2022-03-29] MEDS: ONDANSETRON INJ 4 MG/2 ML VIAL IV PUSH ×2 (08:11→20:11)
[2022-03-29] MEDS: HYDROmorphone HCL INJ (*CRX) 1 MG/ML SYR 0.5 MG IV PUSH ×3 (08:11→20:11)
[2022-03-29] MEDS: SODIUM CHLORIDE 0.9% IV 1,000 ML 999 ML IV CONT (08:12)
[2022-03-29 08:21] LABS: Lipase 136 U/L (23-300)
[2022-03-29 08:26] LABS: INR 1.1; Prothrombin Time 13.4 Seconds (11.1-14.7)
[2022-03-29 08:39] LABS: SARS-CoV-2 RNA PCR Negative
[2022-03-29 09:18] LABS: Hepatitis B Surface Antigen Negative (Negative)
[2022-03-29 09:23] LABS: HAV RESULT Negative (Negative); Hepatitis B Core IgM Result Negative (Negative)
--- NOTE | 2022-03-29 09:30 | ED.ABDPAIN ---
HPI - Abdominal Pain General Chief Complaint: Abdominal Pain Stated Complaint: ruq pain , uti last week into r kidney Time Seen by Provider: 03/29/22 07:03 Source: patient, RN notes reviewed and old records reviewed Mode of arrival: EMS Limitations: no limitations History of Present Illness HPI narrative: This is a 81 year old [place] female who presents for evaluation of right upper abdominal pain. She reports her pain started this morning and it has remained constant. She has been having nausea over the past week, but she denies any vomiting. She is unsure if she has had fever. She denies diarrhea. She also states her pain does not radiate to her back or groin. She denies any urinary complaints. She is reporting severe pain, and she has not taken anything for pain this morning. She rates pain as 10/10. She denies having similar pain in the past. She was admitted to hospitalist 2 weeks ago with pyelonephritis but she has completed her antibiotics. Related Data Home Medications Medication Instructions Recorded Confirmed acetaminophen 325 mg tablet 325 mg PO BID ARTHRITIS 03/29/22 03/29/22 fluticasone propionate 50 1 spray intranasal Q12H 03/29/22 03/29/22 mcg/actuation nasal spray,suspension furosemide 20 mg tablet 20 mg PO DAILY 03/29/22 03/29/22 levothyroxine 75 mcg tablet 75 mcg PO DAILY 03/29/22 03/29/22 (Synthroid) liraglutide 0.6 mg/0.1 mL (18 mg/3 1.2 mg subcut DAILY 03/29/22 03/29/22 mL) subcutaneous pen injector (Victoza 2-Holger) polyethylene glycol 3350 17 17 g PO BID 03/29/22 03/29/22 gram/dose oral powder (Miralax) potassium chloride 10 mEq 10 meq PO DAILY 03/29/22 03/29/22 capsule,extended release triamcinolone acetonide 0.025 % 1 applic topical BID 03/29/22 03/29/22 lotion Allergies Allergy/AdvReac Type Severity Reaction Status Date / Time No Known Allergies Allergy Verified 03/13/22 19:44 Review of Systems Review of Systems: All systems reviewed & are unremarkable except as noted in HPI and below Constitutional: Constitutional: Denies chills, Reports fatigue and Denies fever(s) Cardiovascular: Cardiovascular: Denies chest pain and Denies radiating jaw, neck or arm pain Gastrointestinal: Gastrointestinal: Reports abdominal pain, Denies diarrhea, Reports nausea and Denies vomiting Musculoskeletal: Musculoskeletal: Denies back pain [facility] Past Medical History Medical History Chronic kidney disease Stage III with baseline creatinine between 1.1 and 1.2. Dental caries Diastolic dysfunction Echocardiogram November 2021: EF 65-70% mildly increased left ventricular wall thickness, diastolic dysfunction grade 1, E/E 13 is mildly elevated, moderate left atrial enlargement, mild aortic valve sclerosis come no pulmonary hypertension Hyperlipidemia Hypertriglyceridemia Hypothyroidism, acquired, autoimmune Lower back pain Obesity, Class III, BMI 40-49.9 (morbid obesity) Down from a prior BMI of over 50 in October 2021 Osteoarthritis of knees, bilateral Severe medial compartmental osteoarthritis Osteoarthritis of left hip Psoriasis Vitamin D deficiency Surgical History Surgical History H/O: hysterectomy 1984 History of Nestor fundoplication (~2003) To repair a large esophageal hernia Hx of removal of ovary 1986 Family History Family History Mother , At 89 years old Cerebrovascular accident Father , At 92 years old COPD (chronic obstructive pulmonary disease) Sibling Heart disease Cancer Social History Social History Social History: She has been for over 50 years. 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 Her is 96 years old and still hold his medical license. They have 1 son.
[2022-03-29 09:35] LABS: Hepatitis C Virus Antibody Negative (Negative)
[2022-03-29 09:48] LABS: Appearance Urine Clear (Clear); Bilirubin Urine 2+ (Negative); Blood Urine Negative (Negative); Glucose Urine UA Negative (Negative); Ketones Urine 1+ mg/dL (Negative); Leukocyte Esterase Ur Negative LEU/UL (Negative); Nitrate Urine Negative (Negative); Protein Urine Negative (Negative); Specific Grav Ur 1.015 (1.001-1.035); pH Urine 7.5 (5.0-9.0)
[2022-03-29 09:52] LABS: RBC Urine 0-2 /hpf (0-2); Squamous Epithelial Cell Urine Rare /hpf (Few); WBC Urine 0-3 /hpf
[2022-03-29 10:00] LABS: Add Urine Microscopic? YES; Color Urine Dark Yellow (Yellow)
[2022-03-29] MEDS: SODIUM CHLORIDE 0.9% IV 1,000 ML 125 ML IV CONT ×2 (13:08→23:03)
--- NOTE | 2022-03-29 13:12 | PC.NURSE ---
patient transferred to floor with IVF infusing
--- NOTE | 2022-03-29 13:49 | PM.IMHP ---
H&P: HPI History of Present Illness Date/Time: 03/29/22 1248 Chief Complaint: Abdominal pain Narrative: This 81-year-old female patient, well known to this facility from recent admission this month for pyelonephritis discharged on 03/18/2022, with significant past medical history of chronic kidney disease stage 3 with baseline creatinine 1.1-1.2, diastolic heart failure, hyperlipidemia, hypothyroidism, osteoarthritis, obesity, vitamin-D deficiency and chronic psoriasis presents again this morning with complaints of abdominal pain in the right upper quadrant that started yesterday. She reports nausea without any vomiting or diarrhea. She has not had any recent ill contacts nor has she herself been ill other than the pyelonephritis which she has completed all of her medication for and she denies any urinary burning, urgency, frequency, hematuria. Workup was performed in the emergency room and is significant for a white blood cell count of 11.7 without a left shift, lipase of 136, total bilirubin of 3.9, AST of 701, ALT of 585 and alk-phos of 369. Historical search was performed and patient has never had any elevation of her liver enzymes or total bili. Hepatitis panels negative in ER and urinalysis is also negative for infection. Chest x-ray was performed that shows no acute disease however abdomen ultrasound shows cholecystitis with an echogenicity of the pancreas with mild dilation and a fatty liver. Dr. Garcia has been consulted for GI service and Dr. Lyons for general surgery. Patient is being admitted to hospitalist service at this time for pain management pending consult of surgery and GI services. At the time of my assessment patient denies any chest pain, dyspnea, nausea or pain issues received pain medications because she has no new urinary symptoms. She is agreeable to the plan of care for admission at this time with expert consult. This patient does have a history diastolic heart failure. Her most recent cardiac history was reviewed in EMR in is as follows: most recent echo from November 05, 2021: Normal left ventricular systolic function with ejection fraction of 65-70%. No pulmonary hypertension. There is grade 1 diastolic dysfunction. Patient's overall surgical risk is a class 3 risk based upon her history of congestive heart failure and the operative site being intraperitoneal. This yields a 30 day risk of , [place] or cardiac arrest of 10.1%. Review of Systems Review of Systems: All systems reviewed & are unremarkable except as noted in HPI and below PMFSH Past Medical History Medical History Chronic kidney disease Stage III with baseline creatinine between 1.1 and 1.2. Dental caries Diastolic dysfunction Echocardiogram November 2021: EF 65-70% mildly increased left ventricular wall thickness, diastolic dysfunction grade 1, E/E 13 is mildly elevated, moderate left atrial enlargement, mild aortic valve sclerosis come no pulmonary hypertension Hyperlipidemia Hypertriglyceridemia Hypothyroidism, acquired, autoimmune Lower back pain Obesity, Class III, BMI 40-49.9 (morbid obesity) Down from a prior BMI of over 50 in October 2021 Osteoarthritis of knees, bilateral Severe medial compartmental osteoarthritis Osteoarthritis of left hip Psoriasis Vitamin D deficiency Surgical History Surgical History H/O: hysterectomy 1984 History of Nestor fundoplication (~2003) To repair a large esophageal hernia Hx of removal of ovary 1986 Family History Family History Mother , At 89 years old Cerebrovascular accident Father , At 92 years old COPD (chronic obstructive pulmonary disease) Sibling Heart disease Cancer Social History Social History Social History: She back
--- NOTE | 2022-03-29 14:22 | PM.CNGS ---
Assessment and Plan Assessment and plan (1) Acute calculous cholecystitis: Code(s): K80.00 - Calculus of gallbladder with acute cholecystitis without obstruction Status: Acute Assessment and Plan: I have reviewed the imaging and discussed the findings with the patient. She has evidence cholelithiasis and acute cholecystitis. She also has a dilated common bile duct and elevated liver enzymes which raise suspicion for possible choledocholithiasis. GI has been consulted and will await their evaluation for further recommendations. Will repeat liver enzymes tomorrow morning and follow patient for any changes in symptoms. Tentatively will plan for laparoscopic cholecystectomy in the next couple days. (2) Hyperbilirubinemia: Code(s): E80.6 - Other disorders of bilirubin metabolism Status: Acute (3) Diastolic heart failure: Code(s): I50.30 - Unspecified diastolic (congestive) heart failure Status: Acute (4) Chronic kidney disease (CKD) stage G3a/A1, moderately decreased glomerular filtration rate (GFR) between 45-59 mL/min/1.73 square meter and albuminuria creatinine ratio less than 30 mg/g: Code(s): N18.31 - Chronic kidney disease, stage 3a Status: Chronic (5) BMI 45.0-49.9, adult: Code(s): Z68.42 - Body mass index [BMI] 45.0-49.9, adult Status: Acute History of Present Illness Consult details Consult date: 03/29/22 Reason for consult: gallstones Requesting physician: Charisma Grimaldo MD Narrative: This is a 81-year-old woman who presented to the emergency department today with right upper quadrant pain that started yesterday. She states she had a bratwurst for lunch and did not have much of an appetite for dinner. She tried eating some sherbet but began experiencing pain shortly after. She was also having some nausea but no vomiting. She has never had symptoms like this before. Workup in the emergency department showed evidence of cholelithiasis and elevated liver enzymes. She denies any prior history of liver problems. She is being admitted for further workup and treatment. Review of Systems Review of Systems: All systems reviewed & are unremarkable except as noted in HPI and below Constitutional: Constitutional: Denies chills and Denies fever(s) Eyes: Eyes: Denies change in vision ENT: Denies hearing loss, Denies neck pain and Denies sore throat Cardiovascular: Cardiovascular: Denies chest pain and Denies dyspnea Respiratory: Respiratory: Denies cough, Denies dyspnea and Denies wheezing Gastrointestinal: Gastrointestinal: Reports as per HPI Genitourinary: Genitourinary: Denies hematuria and Denies dysuria Musculoskeletal: Musculoskeletal: Denies arthralgias, Denies joint swelling and Denies neck pain Allergic/Immunologic: Allergic/Immunologic: Denies wheezing [facility] Past Medical History Medical History Chronic kidney disease Stage III with baseline creatinine between 1.1 and 1.2. Dental caries Diastolic dysfunction Echocardiogram November 2021: EF 65-70% mildly increased left ventricular wall thickness, diastolic dysfunction grade 1, E/E 13 is mildly elevated, moderate left atrial enlargement, mild aortic valve sclerosis come no pulmonary hypertension Hyperlipidemia Hypertriglyceridemia Hypothyroidism, acquired, autoimmune Lower back pain Obesity, Class III, BMI 40-49.9 (morbid obesity) Down from a prior BMI of over 50 in October 2021 Osteoarthritis of knees, bilateral Severe medial compartmental osteoarthritis Osteoarthritis of left hip Psoriasis Vitamin D deficiency Surgical History Surgical History H/O: hysterectomy 1984 History of Nestor fundoplication (~2003) To repair a large esophageal hernia Hx of removal of ovary 1986 Family History Family History M
[2022-03-29 17:21] LABS: Glucose Point of Care 98 mg/dl (65-105)
[2022-03-29 20:31] LABS: Glucose Point of Care 125 mg/dl (65-105)
[2022-03-29] MEDS: FLUTICASONE PROPIONATE 0.05% NA SPR 16 GM BTL (*BKC) 1 SPRAY NASAL (21:14)
[2022-03-30] MEDS: HYDROmorphone HCL INJ (*CRX) 1 MG/ML SYR 0.5 MG IV PUSH ×6 (01:20→23:45)
[2022-03-30] MEDS: LEVOTHYROXINE SODIUM 75 MCG TABLET PO (05:38)
[2022-03-30 06:00] VITALS: BP 159/87; PULSE 95; RESP 18; TEMP 36.1; O2SAT 98
[2022-03-30 06:21] LABS: Basophils Absolute Auto 0.1 K/mm3 (0.0-0.1); Basophils Percent Auto 0.8 % (0.2-1.2); Eosinophils Absolute Auto 0.2 K/mm3 (0-0.3); Eosinophils Percent Auto 2.8 % (0-4.4); Hematocrit 33.5 % (37.0-47.0); Hemoglobin 10.7 g/dL (12.0-15.0); Immature Granulocyte Absolute 0.03 K/mm3 (0.00-0.031); Immature Granulocyte Percent A 0.4 % (0-0.5); Lymphocytes Absolute Auto 1.57 K/mm3 (0.9-3.2); Lymphocytes Percent Auto 19.9 % (18.3-44.2); Mean Corpuscular HGB Conc 31.9 g/dl (32-36); Mean Corpuscular Volume 93.8 fl (80-100); Mean Platelet Volume 10.3 fl (7.4-10.4); Monocytes Absolute Auto 0.6 K/mm3 (0.1-0.6); Neutrophils Absolute Auto 5.4 K/mm3 (1.3-6.7); Neutrophils Percent Auto 68.1 % (45.5-73.1); Platelet Count Result 310 k/mm3 (150-375); Red Blood Count 3.57 M/mm3 (4.2-5.4); Red Cell Distribution Width 13.8 % (11.5-14.5); White Blood Count 7.9 K/mm3 (4.5-10.0)
[2022-03-30 06:33] LABS: Alanine Aminotransferase 299 U/L (6-35); Albumin Level 3.2 g/dL (3.5-5.1); Alkaline Phosphatase 277 U/L (38-126); Anion Gap 8 mmol/L (8-16); Aspartate Amino Transferase 218 U/L (14-36); Bilirubin,Total 1.2 mg/dL (0.2-1.3); Blood Urea Nitrogen 7 mg/dL (7-17); Carbon Dioxide 22 mmol/L (22-30); Chloride 103 mmol/L (98-107); Estimated Glomerular Filt Rate > 60; Glucose 83 mg/dL (65-110); Lipase 40 U/L (23-300); Potassium 3.7 mmol/L (3.4-5.0); Sodium 133 mmol/L (137-145)
[2022-03-30 07:57] LABS: Glucose Point of Care 90 mg/dl (65-105)
[2022-03-30] MEDS: POTASSIUM CHLORIDE 10 MEQ TABLET.ER PO (08:18)
[2022-03-30] MEDS: FLUTICASONE PROPIONATE 0.05% NA SPR 16 GM BTL (*BKC) 1 SPRAY NASAL ×2 (08:18→19:59)
[2022-03-30] MEDS: polyethylene glycoL 3350 17 GM POWD.PACK PO ×2 (08:18→16:59)
[2022-03-30] MEDS: FUROSEMIDE 20 MG TABLET PO (08:18)
[2022-03-30] MEDS: SODIUM CHLORIDE 0.9% IV 1,000 ML 95 ML IV CONT ×2 (08:18→23:45)
[2022-03-30] MEDS: ACETAMINOPHEN 325 MG TABLET PO ×2 (08:20→16:59)
[2022-03-30 09:50] VITALS: O2SAT 95
--- NOTE | 2022-03-30 09:50 | WPDGICN ---
Assessment and Plan Assessment and plan (1) Acute calculous cholecystitis: Code(s): K80.00 - Calculus of gallbladder with acute cholecystitis without obstruction Status: Acute Assessment and Plan: she definitely has acute cholecystitis. The question is whether not she will need an ERCP. The initial elevated bilirubin suggest choledocholithiasis. She is still having about the same amount of pain but her bilirubin has dropped to 1.2. I think that an MRCP will be helpful. That will determine whether not she will need an ERCP. (2) Hyperbilirubinemia: Code(s): E80.6 - Other disorders of bilirubin metabolism Status: Acute Assessment and Plan: Bilirubin was elevated at 3.9. Now it is down to 1.2. This suggest passage of a common duct stone (3) Elevated LFTs: Code(s): R79.89 - Other specified abnormal findings of blood chemistry Status: Acute Assessment and Plan: I suspect this is all due to her biliary tract disease and not primary liver disease but of course we will need to follow these serially to ensure that they eventually return to normal. (4) Hyperlipidemia: Code(s): E78.5 - Hyperlipidemia, unspecified Status: Chronic Assessment and Plan: Improving in the last 24 hours. Probably indicating passage of a stone (5) History of Nestor fundoplication: Onset Date: ~2003 Code(s): Z98.890 - Other specified postprocedural states Status: Acute Assessment and Plan: for this reason she cannot vomit and until recently, had been unable to even burp but she has been burping lately. Due to the fundoplication she has dealt with excessive flatulence over the years and often this is accompanied by an urgent or loose bowel movement GI Consult Note Consult date/time: 03/30/22 09:50 HPI: Annel Bhatia is a 81 year old female Who presented to the emergency room yesterday with severe right upper quadrant pain. This had begun late night, early Thursday morning. Along with this she was nauseated. She has had no vomiting. She has been burping quite a bit lately. This is new for her, because it is her hiatal hernia repair several years ago she has not been able to burp nor vomit. She does not believe that she had a fever at home. She has never had pain like this in the past. She denies any past history of pancreatic or liver disease. Her stools have been loose the last couple of days. On admission her bilirubin was 3.9. This morning it is down to 1.2 ulcer her AST which was 701 is now down to 218, alkaline phosphatase dropped also from 369-277. Lipase remains normal. Her ultrasound did reveal a somewhat dilated common bile duct in addition to cholelithiasis. With the drop in her bilirubin, I suspect that she may have had a common bile duct stone or sludge that has passed. An MRCP will help determine whether not she will need an ERCP prior to cholecystectomy. She is tolerating clear liquids. Review of Systems Review of Systems: All systems reviewed & are unremarkable except as noted in HPI and below PMFSH Past Medical History Medical History Chronic kidney disease Stage III with baseline creatinine between 1.1 and 1.2. Dental caries Diastolic dysfunction Echocardiogram November 2021: EF 65-70% mildly increased left ventricular wall thickness, diastolic dysfunction grade 1, E/E 13 is mildly elevated, moderate left atrial enlargement, mild aortic valve sclerosis come no pulmonary hypertension Hyperlipidemia Hypertriglyceridemia Hypothyroidism, acquired, autoimmune Lower back pain Obesity, Class III, BMI 40-49.9 (morbid obesity) Down from a prior BMI of over 50 in October 2021 Osteoarthritis of knees, bilateral Severe medial compartmental osteoarthritis Osteoarthritis of left hip Psoriasis Vitamin D deficiency Surgical History Surgical History (Updated 03/30/22 @ 09:55
--- NOTE | 2022-03-30 11:33 | PM.PNGS ---
Progress Note: A&P Assessment and Plan (1) Acute calculous cholecystitis: Code(s): K80.00 - Calculus of gallbladder with acute cholecystitis without obstruction Status: Acute Assessment and Plan: Liver enzymes improved but patient is continuing to have right upper quadrant pain. Agree with GI plan for MRCP. If MRCP shows no choledocholithiasis, then discussed with patient that we can proceed with laparoscopic cholecystectomy, possible open. (2) Hyperbilirubinemia: Code(s): E80.6 - Other disorders of bilirubin metabolism Status: Acute (3) BMI 45.0-49.9, adult: Code(s): Z68.42 - Body mass index [BMI] 45.0-49.9, adult Status: Acute (4) Diastolic heart failure: Code(s): I50.30 - Unspecified diastolic (congestive) heart failure Status: Acute (5) Chronic kidney disease (CKD) stage G3a/A1, moderately decreased glomerular filtration rate (GFR) between 45-59 mL/min/1.73 square meter and albuminuria creatinine ratio less than 30 mg/g: Code(s): N18.31 - Chronic kidney disease, stage 3a Status: Chronic Subjective Subjective Date/Time Seen: 03/30/22 11:33 Interval history: Still having right upper quadrant pain. No fevers. Exam GI: Inspection: non-distended GI Palp: Yes Soft to palpation and Yes Tenderness to palpation present (GI) (Right upper quadrant) Auscultation: normal bowel sounds Objective Data Vital Signs Vital Signs: Vital Signs - 24 hr 03/29/22 12:53 03/29/22 14:00 03/29/22 15:48 Temperature 36.1 C L Pulse Rate 82 83 Respiratory Rate 20 22 H Blood Pressure 140/75 133/76 Pulse Oximetry 97 98 Oxygen Delivery Room Air 03/29/22 22:00 03/30/22 06:00 03/30/22 08:15 Temperature 36.4 C 36.1 C L Pulse Rate 87 95 Respiratory Rate 18 18 Blood Pressure 123/63 159/87 H Pulse Oximetry 94 98 Oxygen Delivery Room Air Intake/Output Intake/Output: Intake & Output 03/27/22 03/28/22 03/29/22 03/30/22 23:59 23:59 23:59 23:59 Intake Total 2270 1640 Output Total 200 Balance 2070 1640 Meds/Results Medications: Active Medications Generic Name Dose Route Start Last Admin Trade Name Freq PRN Reason Stop Dose Admin Acetaminophen 325 mg 03/30/22 09:00 03/30/22 08:20 Acetaminophen 325 Mg Tablet PO 325 mg BID SANKET Administration Fluticasone Propionate 1 spray 03/29/22 21:00 03/30/22 08:18 Fluticasone Propionate 0.05% Na Spr 16 Gm Btl (*Bkc) NASAL 1 spray Q12H SANKET Administration Furosemide 20 mg 03/30/22 09:00 03/30/22 08:18 Furosemide 20 Mg Tablet PO 20 mg DAILY SANKET Administration Hydrocortisone 1 applic 03/30/22 11:25 Hydrocortisone 1% 30 Gm Cream TOPICAL Q12HR SANKET Hydromorphone HCl 0.5 mg 03/29/22 11:16 03/30/22 11:17 Hydromorphone Hcl Inj (*Crx) 1 Mg/Ml Syr IV PUSH 0.5 mg Q4H PRN Administration Pain Rated 7-10 Piperacillin/Tazobactam/Dextrose 3.375 gm in 50 mls @ 100 mls/hr 03/29/22 18:00 03/30/22 11:17 Zosyn 3.375 Gm/D5w 50ml Pm IVPB 100 mls/hr Q6H SANKET Administration Sodium Chloride 1,000 mls @ 95 mls/hr 03/29/22 11:20 03/30/22 08:18 Normal Saline Iv IV CONT 95 mls/hr .[id number] SANKET Administration Levothyroxine Sodium 75 mcg 03/30/22 06:30 03/30/22 05:38 Levothyroxine Sodium 75 Mcg Tablet PO 75 mcg DAILY@0630 SANKET Administration Ondansetron HCl 4 mg 03/29/22 11:16 03/29/22 20:11 Ondansetron Inj 4 Mg/2 Ml Vial IV PUSH 4 mg Q4H PRN Administration Nausea Polyethylene Glycol 17 gm 03/30/22 09:00 03/30/22 08:18 Polyethylene Glycol 3350 17 Gm Powd.Pack PO 17 gm BID SANKET Administration Potassium Chloride 10 meq 03/30/22 09:00 03/30/22 08:18 Potassium Chloride 10 Meq Tablet.Er PO 10 meq DAILY SANKET Administration Radiology Results: ITS Impressions Chest X-Ray 03/29/22 08:03 Impression: 1: No acute cardiopulmonary disease. 2: Cardiomegaly. Abdomen Ultrasound 03/29/22 1
[2022-03-30] MEDS: HYDROCORTISONE 1% 30 GM CREAM 1 APPLIC TOPICAL ×2 (11:55→19:59)
[2022-03-30 14:00] VITALS: BP 141/73; PULSE 81; RESP 20; TEMP 36; O2SAT 93
--- NOTE | 2022-03-30 15:35 | PM.IMPN ---
Progress Note: A&P Assessment and Plan (1) Cholecystitis: Code(s): K81.9 - Cholecystitis, unspecified Status: Acute Assessment and Plan: presented with right upper quadrant pain. Abdominal ultrasound on presentation showed cholelithiasis with gallbladder wall thickening and pericholecystic fluid with mild biliary dilatation appreciate general surgery and Gastroenterology consultation continue IV Zosyn Underwent MRCP today. Awaiting interpretation. If no evidence of choledocholithiasis, will plan for laparoscopic cholecystectomy per General surgery continue clear liquid diet. NPO at midnight for possible surgical intervention tomorrow. gentle IV fluids until diet is advanced supportive care. Analgesics available as needed. afebrile. Leukocytosis resolved (2) Elevated LFTs: Code(s): R79.89 - Other specified abnormal findings of blood chemistry Status: Acute Assessment and Plan: Patient with markedly elevated LFTs on presentation much improvement today, however still very elevated total bilirubin levels have normalized awaiting MRCP as above continue to trend (3) Hypothyroidism: Code(s): E03.9 - Hypothyroidism, unspecified Status: Chronic Assessment and Plan: continue home levothyroxine check TSH noted that last TSH checked at this facility in September and October 2021 was markedly elevated (4) Chronic kidney disease (CKD) stage G3a/A1, moderately decreased glomerular filtration rate (GFR) between 45-59 mL/min/1.73 square meter and albuminuria creatinine ratio less than 30 mg/g: Code(s): N18.31 - Chronic kidney disease, stage 3a Status: Chronic Assessment and Plan: renal function is consistent with baseline (5) Diastolic heart failure: Code(s): I50.30 - Unspecified diastolic (congestive) heart failure Status: Acute Assessment and Plan: not in acute exacerbation most recent echo November 2021 showed normal left ventricular systolic function with ejection fraction of 65-70%. No pulmonary hypertension. There is grade 1 diastolic dysfunction. caution with IV fluid rehydration monitor intake and output (6) Hyperlipidemia: Code(s): E78.5 - Hyperlipidemia, unspecified Status: Chronic Assessment and Plan: statin on hold given elevated LFTs resume when clinically appropriate Subjective Date/time seen: 03/30/22 15:35 Interval history: date of service: 03/30/2022 Annel Bhatia is a 81-year-old female with a history of CKD, diastolic dysfunction, hypothyroidism, hyperlipidemia, hiatal hernia s/p Nestor fundoplication, and recent hospital admission for pyelonephritis who is seen in follow-up for acute cholecystitis. she is feeling about the same today. She does endorse right upper quadrant pain. this morning her pain was a 10/10 but after receiving pain medications her pain has improved to a 6/10. She states she has been feeling miserable today. She endorses nausea but has had no episodes of vomiting. She is belching and passing flatus. She did have a bowel movement today but states she did not look to notice if she had diarrhea or formed stool. She denies fevers or chills. No shortness breath, cough, chest pain, dizziness, lightheadedness, weakness. Review of Systems Review of Systems: All systems reviewed & are unremarkable except as noted in HPI and below Exam Narrative: General: Well-nourished, well-appearing 81-year-old female, sitting up in bed, comfortable, NARD Neuro: awake, alert and oriented x4, speech clear, no focal neuro deficits noted HEENMT: normocephalic, atraumatic, EOMI, sclerae anicteric Respiratory: clear to auscultation bilaterally, nonlabored breathing Cardio: regular rate, regular rhythm with S1-S2 Abdomen: nondistended, normoactive bowel sounds, soft, tender to palpation in right upper quadrant Extrem
[2022-03-30 16:41] LABS: Glucose Point of Care 79 mg/dl (65-105)
[2022-03-30 22:00] VITALS: BP 141/46; PULSE 60; RESP 22; TEMP 35.8; O2SAT 99
[2022-03-30 22:18] LABS: Glucose Point of Care 97 mg/dl (65-105)
[2022-03-31] VITALS (11 sets, daily range): BP systolic 120–153; BP diastolic 65–95; PULSE 88–106; RESP 14–22; TEMP 35.8–36.7; O2SAT 92–100
[2022-03-31] MEDS: HYDROmorphone HCL INJ (*CRX) 1 MG/ML SYR 0.5 MG IV PUSH ×5 (04:19→20:58)
[2022-03-31 06:07] LABS: Glucose Point of Care 97 mg/dl (65-105)
--- NOTE | 2022-03-31 07:04 | WPDGIPROGNO ---
Progress Note: A&P Assessment and Plan (1) Acute calculous cholecystitis: Code(s): K80.00 - Calculus of gallbladder with acute cholecystitis without obstruction Status: Acute Assessment and Plan: she definitely has acute cholecystitis. The question is whether not she will need an ERCP. The initial elevated bilirubin suggest choledocholithiasis. She is still having about the same amount of pain but her bilirubin has dropped to 1.2. I think that an MRCP will be helpful. That will determine whether not she will need an ERCP. Labs have just returned and showed that her LFTs have improved. Therefore she will not need ERCP unless MRCP, which is still pending, should show a bile duct stone. Addendum: MRCP is normal. (2) Hyperbilirubinemia: Code(s): E80.6 - Other disorders of bilirubin metabolism Status: Acute Assessment and Plan: Bilirubin was elevated at 3.9. Now it is down to 1.2. This suggest passage of a common duct stone . 03/31/2022 bilirubin is lower today. (3) Elevated LFTs: Code(s): R79.89 - Other specified abnormal findings of blood chemistry Status: Acute Assessment and Plan: I suspect this is all due to her biliary tract disease and not primary liver disease but of course we will need to follow these serially to ensure that they eventually return to normal. 03/31/2022 LFTs are lower (4) Hyperlipidemia: Code(s): E78.5 - Hyperlipidemia, unspecified Status: Chronic Assessment and Plan: Improving in the last 24 hours. Probably indicating passage of a stone (5) History of Nestor fundoplication: Onset Date: ~2003 Code(s): Z98.890 - Other specified postprocedural states Status: Acute Assessment and Plan: for this reason she cannot vomit and until recently, had been unable to even burp but she has been burping lately. Due to the fundoplication she has dealt with excessive flatulence over the years and often this is accompanied by an urgent or loose bowel movement Subjective Date/time seen: 03/31/22 07:04 She states that she is still having considerable pain. Her pain medicine wears off at least an hour before she is due for another 1. She has had no vomiting during the night. Her pain is still primarily right upper quadrant and epigastric area. MRCP was done yesterday but has not yet been interpreted. Her blood was just drawn a few minutes ago and therefore we have no results as of yet. I told her that if the MRCP shows a stone, or if her LFTs have increased, then she will have an ERCP. Otherwise that procedure will not be necessary and she would then have laparoscopic cholecystectomy, probably today. Exam Const: General: alert Orientation/consciousness: patient oriented x3 Resp: Auscultation: clear to auscultation bilaterally Cardio: Rhythm: regular rhythm GI: Inspection: normal to inspection Auscultation: normal bowel sounds Skin: General skin exam: no jaundice Neuro: General: patient oriented x3 Objective Data Vital Signs Vital Signs: Vital Signs - 24 hr 03/30/22 08:15 03/30/22 09:50 03/30/22 14:00 Temperature 36.0 C L Pulse Rate 81 Respiratory Rate 20 Blood Pressure 141/73 H Pulse Oximetry 95 93 Oxygen Delivery Room Air Room Air 03/30/22 22:00 03/31/22 06:00 Temperature 35.8 C L 35.8 C L Pulse Rate 60 88 Respiratory Rate 22 H 16 Blood Pressure 141/46 H 144/83 H Pulse Oximetry 99 96 Oxygen Delivery Intake/Output Intake/Output: Intake & Output 03/28/22 03/29/22 03/30/22 03/31/22 23:59 23:59 23:59 23:59 Intake Total 2270 4320 50 Output Total 200 1400 400 Balance 2070 2920 -350 Meds/Results Medications: Active Medications Generic Name Dose Route Start Last Admin Trade Name Freq PRN Reason Stop Dose Admin Acetaminophen 325 mg 03/30/22 09:00 03/30/22 16:59 Acetaminophen 325 Mg Tablet PO 325 mg BID SANKET Administration Fluti
[2022-03-31 07:23] LABS: Hematocrit 33.3 % (37.0-47.0); Hemoglobin 10.2 g/dL (12.0-15.0); Mean Corpuscular HGB Conc 30.6 g/dl (32-36); Mean Corpuscular Hemoglobin 29.2 pg (26-34); Mean Corpuscular Volume 95.4 fl (80-100); Mean Platelet Volume 10.1 fl (7.4-10.4); Platelet Count Result 331 k/mm3 (150-375); Red Blood Count 3.49 M/mm3 (4.2-5.4); White Blood Count 7.8 K/mm3 (4.5-10.0)
[2022-03-31 07:44] LABS: Glucose Point of Care 90 mg/dl (65-105)
[2022-03-31 07:54] LABS: Alanine Aminotransferase 186 U/L (6-35); Alkaline Phosphatase 223 U/L (38-126); Anion Gap 6 mmol/L (8-16); Aspartate Amino Transferase 73 U/L (14-36); Bilirubin,Total 0.6 mg/dL (0.2-1.3); Blood Urea Nitrogen 3 mg/dL (7-17); Calcium 7.8 mg/dL (8.4-10.2); Carbon Dioxide 23 mmol/L (22-30); Chloride 106 mmol/L (98-107); Estimated Glomerular Filt Rate > 60; Glucose 92 mg/dL (65-110); Potassium 3.6 mmol/L (3.4-5.0); Sodium 135 mmol/L (137-145)
[2022-03-31] MEDS: CHLORHEXIDINE GLUCONATE 4% SOL 120 ML BTL 1 APPLIC TOPICAL (08:07)
[2022-03-31] MEDS: FLUTICASONE PROPIONATE 0.05% NA SPR 16 GM BTL (*BKC) 1 SPRAY NASAL ×2 (08:08→20:58)
[2022-03-31] MEDS: HYDROCORTISONE 1% 30 GM CREAM 1 APPLIC TOPICAL ×2 (08:08→20:58)
--- NOTE | 2022-03-31 08:46 | PC.NURSE ---
off floor at this time for surgery.
--- NOTE | 2022-03-31 09:20 | WPDANESEPPF ---
Anes - Initial Pre Proc Eval Procedure: Operation Date: 03/31/22 10:30 Proposed Procedures p Laparoscopic Cholecystectomy,Possible Open - Karen Richard MD Date/Time: 03/31/22 09:20 Surgeon: Diane Slater PA-C Pre Op Diagnosis: Cholecystitis Patient Data Age: 81 Gender: F Height: 1.45 m Weight: 96.6 kg Last Vital Signs Temp 36.2 C L 03/31/22 09:05 Pulse 90 03/31/22 09:05 Resp 18 03/31/22 09:05 BP 149/95 H 03/31/22 09:05 Pulse Ox 98 03/31/22 09:05 O2 Del Method Room Air 03/31/22 09:05 Allergies Allergy/AdvReac Type Severity Reaction Status Date / Time No Known Allergies Allergy Verified 03/13/22 19:44 Home Medications Medication Instructions Recorded Confirmed Type acetaminophen 325 mg tablet 325 mg PO BID ARTHRITIS 03/29/22 03/29/22 History fluticasone propionate 50 1 spray intranasal Q12H 03/29/22 03/29/22 History mcg/actuation nasal spray,suspension furosemide 20 mg tablet 20 mg PO DAILY 03/29/22 03/29/22 History levothyroxine 75 mcg tablet 75 mcg PO DAILY 03/29/22 03/29/22 History (Synthroid) liraglutide 0.6 mg/0.1 mL (18 mg/3 1.2 mg subcut DAILY 03/29/22 03/29/22 History mL) subcutaneous pen injector (Victoza 2-Holger) polyethylene glycol 3350 17 17 g PO BID 03/29/22 03/29/22 History gram/dose oral powder (Miralax) potassium chloride 10 mEq 10 meq PO DAILY 03/29/22 03/29/22 History capsule,extended release triamcinolone acetonide 0.025 % 1 applic topical BID 03/29/22 03/29/22 History lotion Laboratory Tests 03/30/22 03/30/22 03/30/22 11:27 16:38 22:11 WBC RBC Hgb Hct MCV MCH MCHC RDW Plt Count MPV Sodium Potassium Chloride Carbon Dioxide Anion Gap BUN Creatinine Estim Creat Clear Calc Estimated GFR Glucose POC Capillary Glucose 97 mg/dl mg/dl 79 mg/dl mg/dl 97 mg/dl mg/dl (65-105) (65-105) (65-105) Calcium Total Bilirubin Direct Bilirubin AST ALT Alkaline Phosphatase Total Protein Albumin TSH (Reflex) Free T4 Blood Type Antibody Screen 03/31/22 03/31/22 03/31/22 06:41 06:41 06:41 WBC 7.8 K/mm3 K/mm3 (4.5-10.0) RBC 3.49 M/mm3 L M/mm3 (4.2-5.4) Hgb 10.2 g/dL L g/dL (12.0-15.0) Hct 33.3 % L % (37.0-47.0) MCV 95.4 fl fl (80-100) MCH 29.2 pg pg (26-34) MCHC 30.6 g/dl L g/dl (32-36) RDW 14.0 % % (11.5-14.5) Plt Count 331 k/mm3 k/mm3 (150-375) MPV 10.1 fl fl (7.4-10.4) Sodium 135 mmol/L L mmol/L (137-145) Potassium 3.6 mmol/L mmol/L (3.4-5.0) Chloride 106 mmol/L mmol/L (98-107) Carbon Dioxide 23 mmol/L mmol/L (22-30) Anion Gap 6 mmol/L L mmol/L (8-16) BUN 3 mg/dL L mg/dL (7-17) Creatinine 0.50 mg/dL L mg/dL (0.7-1.0) Estim Creat Clear Calc Not Reportable Estimated GFR > 60 (59 - ) Glucose 92 mg/dL mg/dL (65-110) POC Capillary Glucose Calcium 7.8 mg/dL L mg/dL (8.4-10.2) Total Bilirubin 0.6 mg/dL mg/dL (0.2-1.3) Direct Bilirubin 0.0 mg/dL mg/dL (0-0.3) AST 73 U/L H U/L (14-36) ALT 186 U/L H U/L (6-35) Alkaline Phosphatase 223 U/L H U/L (38-126) Total Protein 6.0 g/dL L g/dL (6.3-8.2) Albumin 3.0 g/dL L g/dL (3.5-5.1) TSH (Reflex) 8.450 uIU/mL H uIU/mL (0.465-4.68) Free T4 Blood Type Antibody Screen 03/31/22 03/31/22 03/31/22 06:41
[2022-03-31] MEDS: LACTATED RINGERS 1,000 ML 30 ML IV CONT ×2 (09:30→11:19)
--- NOTE | 2022-03-31 09:46 | WPDHPUPDATE1 ---
History and Physical Update Update Date/Time: 03/31/22 09:46 History and Physical has been reviewed, including an updated exam of the patient. There are NO changes in the patient's condition. Risks, benefits, and alternatives have been discussed and questions answered. Patient agrees to proceed with procedure.
[2022-03-31 11:25] LABS: Free T4 Free Thyroxine Reflex 1.19 ng/dL (0.78-2.19)
--- NOTE | 2022-03-31 11:28 | W.PM.PROC2 ---
Procedure Note - Detailed Date of Procedure 03/31/22 Pre-op Diagnosis acute cholecystitis Post-op Diagnosis Same Procedure Performed Laparoscopic cholecystectomy Surgeon Karen Richard MD Anesthesia General Indications 81 y/o F presented to hospital c acute cholecystitis Findings acute cholecystitis Description of Procedure The patient was taken to the operating room placed in the supine position. After adequate induction of general anesthesia, the patient was prepped and draped in normal sterile fashion. A time-out was then performed to verify the patient's identity as well as the procedure being performed. I then made a 5 mm incision in the infraumbilical region. Through this, a Veress needle was placed into the peritoneal cavity and CO2 gas was then insufflated. After adequate pneumoperitoneum was achieved, the Veress needle was removed and a 5 mm optiview trocar was placed through this incision under direct visualization. I then placed the laparoscope through this trocar site and under direct visualization placed a further 12 mm subxiphoid port as well as 2 additional 5 mm ports in the right upper abdomen. The gallbladder was then identified and was noted to be severely inflamed and distended. Given this, I decompressed the gallbladder with the ovarian needle. I was able then to place a grasper at the dome of the gallbladder and this was retracted anterior and cephalad up over the liver. A 2nd retractor was then placed at the infundibulum and retracted laterally, this allowed visualization of the triangle of Calot. I then was able to visualize the cystic duct in its entirety from its proximal insertion into the gallbladder, to its distal junction with the common hepatic/common bile duct junction. At this point, I carefully skeletonized the proximal cystic duct with the [place] dissector. I then clipped and transected the proximal cystic duct. Next I visualized the cystic artery. Again the artery was skeletonized, clipped, and transected. I then used the Bovie cautery to take down the peritoneal attachments of the gallbladder off the liver bed. This was somewhat difficult given the amount of inflammation in the posterior space. Once the gallbladder specimen was completely detached, an endo-pouch was placed through the 12 mm port site. I then placed the gallbladder specimen into the Endo pouch and removed the endo-pouch from the 12 mm port site. The specimen will now be sent to pathology for further review. I then copiously irrigated the right upper quadrant. Some mild oozing was noted in the liver bed and this was controlled with the bovie cautery. I then placed some hemostatic powder in the liver bed. Hemostasis was noted in the liver bed, the clips were noted to be in good position on both the cystic duct stump and the cystic artery stump. No other pathology was noted in the right upper quadrant. I then moved the laparoscope to the subxiphoid port. No iatrogenic injury or other pathology was noted in the lower abdomen. I then closed the 12 mm trocar site under direct visualization using the John cone and 0 Vicryl suture. At this point, the abdomen was desufflated and all ports removed. All port sites were then closed with 4.O Monocryl subcuticular sutures. Dermabond was placed on each incision. The patient tolerated the procedure well, was extubated in the operating room postoperative and will be transferred to the recovery room in stable condition Estimated Blood Loss 50 Drains No Packing No Pathology Yes Complications No immediate complications Condition Stable Disposition PACU [facility] Billing Surgery - Charge Forward: Surgery Billing
[2022-03-31] MEDS: fentaNYL CITRATE INJ (*CRX) 100 MCG/2 ML VIAL 25 MCG IV PUSH ×6 (11:30→12:37)
--- NOTE | 2022-03-31 11:53 | SUR.PHASEI ---
1122- oral airway removed
[2022-03-31] MEDS: ONDANSETRON INJ 4 MG/2 ML VIAL IV PUSH (12:00)
[2022-03-31 12:10] LABS: Total Triiodothyronine (T3) 0.81 NG/ML (0.97-1.69)
--- NOTE | 2022-03-31 15:31 | PM.IMPN ---
Progress Note: A&P Assessment and Plan (1) Cholecystitis: Code(s): K81.9 - Cholecystitis, unspecified Status: Acute Assessment and Plan: presented with right upper quadrant pain. Abdominal ultrasound on presentation showed cholelithiasis with gallbladder wall thickening and pericholecystic fluid with mild biliary dilatation appreciate general surgery and Gastroenterology consultation continue IV Zosyn MRCP showed cholelithiasis and acute cholecystitis without evidence of choledocholithiasis s/p laparoscopic cholecystectomy performed today by Dr. Richard. tolerated the procedure well continue clear liquid diet. advance diet per General surgery recommendation supportive care. Analgesics available as needed. afebrile. Leukocytosis resolved (2) Elevated LFTs: Code(s): R79.89 - Other specified abnormal findings of blood chemistry Status: Acute Assessment and Plan: Patient with markedly elevated LFTs on presentation LFTs continue to trend down no evidence of choledocholithiasis on MRCP total bilirubin levels have normalized continue to trend (3) Hypothyroidism: Code(s): E03.9 - Hypothyroidism, unspecified Status: Chronic Assessment and Plan: TSH slightly elevated but markedly improved from last check in October 2021 T4 is within normal limits Assume this is being actively managed by her PCP. Contacted their office for further information, awaiting return call. continue home levothyroxine (4) Chronic kidney disease (CKD) stage G3a/A1, moderately decreased glomerular filtration rate (GFR) between 45-59 mL/min/1.73 square meter and albuminuria creatinine ratio less than 30 mg/g: Code(s): N18.31 - Chronic kidney disease, stage 3a Status: Chronic Assessment and Plan: renal function is consistent with baseline (5) Diastolic heart failure: Code(s): I50.30 - Unspecified diastolic (congestive) heart failure Status: Acute Assessment and Plan: not in acute exacerbation most recent echo November 2021 showed normal left ventricular systolic function with ejection fraction of 65-70%. No pulmonary hypertension. There is grade 1 diastolic dysfunction. monitor intake and output (6) Hyperlipidemia: Code(s): E78.5 - Hyperlipidemia, unspecified Status: Chronic Assessment and Plan: statin on hold given elevated LFTs resume when clinically appropriate Subjective Date/time seen: 03/31/22 15:31 Interval history: date of service: 03/30/2022 Annel Bhatia is a 81-year-old female with a history of CKD, diastolic dysfunction, hypothyroidism, hyperlipidemia, hiatal hernia s/p Nestor fundoplication, and recent hospital admission for pyelonephritis who is seen in follow-up for acute cholecystitis. she underwent laparoscopic cholecystectomy today and tolerated the procedure well. She was a little bit sleepy after her surgery. she is having pretty severe right upper quadrant pain that she rates as 10/10. She feels very sore. She denies nausea or vomiting. She is tolerating clear liquids but states she is trying to take it slow. She denies shortness of breath. She was put on oxygen postoperatively and she is very eager to have this removed as she finds this to be irritating. She denies dizziness, lightheadedness, weakness, chest pain, palpitations. She had a bowel movement this morning before her surgery. She has urinated since returning from surgery without any issues. Review of Systems Review of Systems: All systems reviewed & are unremarkable except as noted in HPI and below Exam Narrative: General: Well-nourished, well-appearing 81-year-old female, sitting up in bed, comfortable, NARD Neuro: awake, alert and oriented x4, speech clear, no focal neuro deficits noted HEENMT: normocephalic, atraumatic, EOMI, sclerae anicteric Respiratory: clear to auscultation jorgito
[2022-03-31 16:39] LABS: Glucose Point of Care 206 mg/dl (65-105)
[2022-03-31] MEDS: ACETAMINOPHEN 325 MG TABLET PO (16:58)
[2022-03-31] MEDS: polyethylene glycoL 3350 17 GM POWD.PACK PO (16:58)
[2022-03-31 19:09] LABS: Glucose Point of Care 257 mg/dl (65-105)
[2022-03-31 21:49] LABS: Glucose Point of Care 164 mg/dl (65-105)
[2022-04-01] MEDS: HYDROmorphone HCL INJ (*CRX) 1 MG/ML SYR 0.5 MG IV PUSH ×2 (02:24→06:50)
[2022-04-01] MEDS: LEVOTHYROXINE SODIUM 75 MCG TABLET PO (05:34)
[2022-04-01 05:40] LABS: Hemoglobin 10.5 g/dL (12.0-15.0); Mean Corpuscular HGB Conc 31.8 g/dl (32-36); Mean Corpuscular Hemoglobin 29.3 pg (26-34); Mean Corpuscular Volume 92.2 fl (80-100); Mean Platelet Volume 9.8 fl (7.4-10.4); Platelet Count Result 364 k/mm3 (150-375); Red Blood Count 3.58 M/mm3 (4.2-5.4); Red Cell Distribution Width 13.4 % (11.5-14.5); White Blood Count 10.6 K/mm3 (4.5-10.0)
[2022-04-01 05:50] LABS: Alanine Aminotransferase 145 U/L (6-35); Albumin Level 3.2 g/dL (3.5-5.1); Alkaline Phosphatase 191 U/L (38-126); Anion Gap 7 mmol/L (8-16); Aspartate Amino Transferase 61 U/L (14-36); Bilirubin,Total 0.4 mg/dL (0.2-1.3); Blood Urea Nitrogen 3 mg/dL (7-17); Calcium 8.4 mg/dL (8.4-10.2); Carbon Dioxide 25 mmol/L (22-30); Chloride 102 mmol/L (98-107); Estimated Glomerular Filt Rate > 60; Glucose 125 mg/dL (65-110); Potassium 3.6 mmol/L (3.4-5.0); Sodium 134 mmol/L (137-145)
[2022-04-01 06:00] VITALS: BP 156/94; PULSE 75; RESP 20; TEMP 35.6; O2SAT 97
[2022-04-01 08:00] VITALS: O2SAT 95
[2022-04-01] MEDS: POTASSIUM CHLORIDE 10 MEQ TABLET.ER PO (08:19)
[2022-04-01] MEDS: FUROSEMIDE 20 MG TABLET PO (08:19)
[2022-04-01] MEDS: polyethylene glycoL 3350 17 GM POWD.PACK PO ×2 (08:20→17:52)
[2022-04-01] MEDS: ACETAMINOPHEN 325 MG TABLET PO (08:23)
[2022-04-01] MEDS: FLUTICASONE PROPIONATE 0.05% NA SPR 16 GM BTL (*BKC) 1 SPRAY NASAL ×2 (08:24→20:07)
[2022-04-01] MEDS: HYDROCORTISONE 1% 30 GM CREAM 1 APPLIC TOPICAL ×2 (08:25→20:08)
[2022-04-01 08:36] VITALS: O2SAT 95
--- NOTE | 2022-04-01 11:29 | PM.PNGS ---
Progress Note: A&P Assessment and Plan (1) Acute calculous cholecystitis: Code(s): K80.00 - Calculus of gallbladder with acute cholecystitis without obstruction Status: Acute Assessment and Plan: Postop day 1 and still needing IV Dilaudid for pain control. Will add [place] to start transitioning to oral pain meds. Tolerating her diet well. If pain is better controlled with oral analgesics later today, then she could be discharged from a surgical standpoint. Okay to stop antibiotics. Follow up in [address] Richard. If she is still having issues with pain control, then may need to stay overnight. Encouraged increasing activity and sitting in the chair once her pain is better controlled. (2) Hyperbilirubinemia: Code(s): E80.6 - Other disorders of bilirubin metabolism Status: Acute Assessment and Plan: MRCP showed no choledocholithiasis. LFTs trending down. (3) BMI 45.0-49.9, adult: Code(s): Z68.42 - Body mass index [BMI] 45.0-49.9, adult Status: Acute (4) Diastolic heart failure: Code(s): I50.30 - Unspecified diastolic (congestive) heart failure Status: Acute (5) Chronic kidney disease (CKD) stage G3a/A1, moderately decreased glomerular filtration rate (GFR) between 45-59 mL/min/1.73 square meter and albuminuria creatinine ratio less than 30 mg/g: Code(s): N18.31 - Chronic kidney disease, stage 3a Status: Chronic Plan I have discussed the patient's case and plan of care with Dr. Richard. Subjective Subjective Date/Time Seen: 04/01/22 11:29 Post Op day: 1 (Laparoscopic cholecystectomy) Patient reports: tolerating a regular diet, voiding w/o difficulty, flatus, no bowel movement and afebrile Interval history: Patient seen and examined. She reports having abdominal pain this morning and feels she is in need of her next dose of IV Dilaudid. She last had this around 6:00 a.m. and feels it has worn off. She has not had any oral analgesics. She is tolerating her diet without any nausea or vomiting. She has got up to the bedside commode, but not ambulated or sat in a chair since surgery. Review of Systems Review of Systems: All systems reviewed & are unremarkable except as noted in HPI and below Exam Const: General: no acute distress and uncomfortable Orientation/consciousness: patient oriented x3 GI: Inspection: incision (Abdominal incisions clean and dry, glue intact.) and obesity GI Palp: Yes Soft to palpation and Yes Tenderness to palpation present (GI) Auscultation: Hypoactive bowel sounds present Extrem: General: no calf tenderness Psych: Mental Status: mental status grossly normal Insight: Good insight present (Psych) Objective Data Vital Signs Vital Signs: Vital Signs - 24 hr 03/31/22 11:34 03/31/22 11:49 03/31/22 12:04 Temperature Pulse Rate 95 93 96 Respiratory Rate 22 H 16 20 Blood Pressure 120/67 135/73 132/72 Pulse Oximetry 93 92 95 Oxygen Delivery Room Air Room Air Nasal Cannula Oxygen Flow Rate 2 03/31/22 12:19 03/31/22 12:33 03/31/22 13:15 Temperature Pulse Rate 96 97 Respiratory Rate 16 20 Blood Pressure 153/84 H 138/65 Pulse Oximetry 96 95 93 Oxygen Delivery Nasal Cannula Nasal Cannula Nasal Cannula Oxygen Flow Rate 2 2 1 03/31/22 14:00 03/31/22 20:00 03/31/22 22:00 Temperature 97.8 F 96.5 F L Pulse Rate 106 H 102 H Respiratory Rate 14 20 Blood Pressure 141/84 H 152/87 H Pulse Oximetry 97 98 Oxygen Delivery Room Air Oxygen Flow Rate 04/01/22 06:00 04/01/22 08:36 04/01/22 08:00 Temperature 96.1 F L Pulse Rate 75 Respiratory Rate 20 Blood Pressure 156/94 H Pulse Oximetry 97 95 95 Oxygen Delivery Room Air Room Air Oxygen Flow Rate Intake/Output Intake/Output: Intake & Output 03/29/22 03/30/22 03/31/22 04/01/22 23:59 23:59 23:59 23:59 Intake Total 2270 4320 1390 790 Output Total 200 1400 1700 1600 Balance 5544 9495 -846 -509 Meds/Results
[2022-04-01 11:32] LABS: Glucose Point of Care 132 mg/dl (65-105)
[2022-04-01] MEDS: HYDROcodone/acetaminophen (*CRX) 10-325 MG TABLET 1 TAB PO ×3 (12:15→22:12)
--- NOTE | 2022-04-01 13:57 | WPDANESPN ---
Anes - Prog Note Post-Op Date/Time: 04/01/22 13:57 Vital Signs: Last Vital Signs Temp 35.6 C L 04/01/22 06:00 Pulse 75 04/01/22 06:00 Resp 20 04/01/22 06:00 BP 156/94 H 04/01/22 06:00 Pulse Ox 95 04/01/22 08:36 O2 Del Method Room Air 04/01/22 08:36 O2 Flow Rate 1 03/31/22 13:15 Pain Score (VAS): 9/10. Patient states RN gave her oral medications about 1 hour ago I/O: Intake & Output 03/31/22 04/01/22 04/01/22 23:59 07:59 15:59 Intake Total 640 600 360 Output Total 900 1600 Balance -260 -1000 360 Laboratory Tests 04/01/22 05:22 04/01/22 05:22 03/31/22 03/31/22 03/31/22 16:29 19:06 21:45 WBC RBC Hgb Hct MCV MCH MCHC RDW Plt Count MPV Sodium Potassium Chloride Carbon Dioxide Anion Gap BUN Creatinine Estim Creat Clear Calc Estimated GFR Glucose POC Capillary Glucose 206 H 257 H 164 H Calcium Total Bilirubin AST ALT Alkaline Phosphatase Total Protein Albumin 04/01/22 04/01/22 04/01/22 05:22 05:22 11:25 WBC 10.6 H RBC 3.58 L Hgb 10.5 L Hct 33.0 L MCV 92.2 MCH 29.3 MCHC 31.8 L RDW 13.4 Plt Count 364 MPV 9.8 Sodium 134 L Potassium 3.6 Chloride 102 Carbon Dioxide 25 Anion Gap 7 L BUN 3 L Creatinine 0.50 L Estim Creat Clear Calc Not Reportable Estimated GFR > 60 Glucose 125 H POC Capillary Glucose 132 H Calcium 8.4 Total Bilirubin 0.4 AST 61 H ALT 145 H Alkaline Phosphatase 191 H Total Protein 6.0 L Albumin 3.2 L Microbiology 03/29/22 12:12 Blood Blood Culture - Preliminary Staphylococcus epidermis Patient Feedback: Patient satisfied with anesthetic care.
[2022-04-01 14:00] VITALS: BP 133/74; PULSE 96; RESP 18; TEMP 36.2; O2SAT 99
--- NOTE | 2022-04-01 15:58 | PM.IMPN ---
Progress Note: A&P Assessment and Plan (1) Cholecystitis: Code(s): K81.9 - Cholecystitis, unspecified Status: Acute Assessment and Plan: presented with right upper quadrant pain. Abdominal ultrasound on presentation showed cholelithiasis with gallbladder wall thickening and pericholecystic fluid with mild biliary dilatation appreciate general surgery and Gastroenterology consultation continue IV Zosyn MRCP showed cholelithiasis and acute cholecystitis without evidence of choledocholithiasis s/p laparoscopic cholecystectomy on 03/[address] Richard. tolerated the procedure well advanced to heart healthy diet per General surgery supportive care. Analgesics available as needed. (2) Elevated LFTs: Code(s): R79.89 - Other specified abnormal findings of blood chemistry Status: Acute Assessment and Plan: Patient with markedly elevated LFTs on presentation LFTs continue to trend down no evidence of choledocholithiasis on MRCP total bilirubin levels have normalized continue to trend (3) Hypothyroidism: Code(s): E03.9 - Hypothyroidism, unspecified Status: Chronic Assessment and Plan: TSH slightly elevated (8.5) but markedly improved from last check in October 2021 (43.2) T4 is within normal limits Spoke to her PCP who recommends continue current dose and repeat in 6 weeks. (4) Chronic kidney disease (CKD) stage G3a/A1, moderately decreased glomerular filtration rate (GFR) between 45-59 mL/min/1.73 square meter and albuminuria creatinine ratio less than 30 mg/g: Code(s): N18.31 - Chronic kidney disease, stage 3a Status: Chronic Assessment and Plan: renal function is consistent with baseline (5) Diastolic heart failure: Code(s): I50.30 - Unspecified diastolic (congestive) heart failure Status: Acute Assessment and Plan: not in acute exacerbation most recent echo November 2021 showed normal left ventricular systolic function with ejection fraction of 65-70%. No pulmonary hypertension. There is grade 1 diastolic dysfunction. monitor intake and output (6) Hyperlipidemia: Code(s): E78.5 - Hyperlipidemia, unspecified Status: Chronic Assessment and Plan: statin on hold given elevated LFTs resume when clinically appropriate Subjective Date/time seen: 04/01/22 15:58 Interval history: date of service: 04/01/2022 Annel Bhatia is a 81-year-old female with a history of CKD, diastolic dysfunction, hypothyroidism, hyperlipidemia, hiatal hernia s/p Nestor fundoplication, and recent hospital admission for pyelonephritis who is seen in follow-up for acute cholecystitis. She is still having pretty severe pain in her RUQ today. She states she is counting down the minutes until she can have her next pain shot. She currently rates her pain as 8/10. She describes it as aching and stabbing and just everything. She did tolerate liquids this morning. She had a bowel movement last night. Denies N/V/fevers, chills, dizziness, lightheadedness, weakness. She states she feels out of sorts. Review of Systems Review of Systems: All systems reviewed & are unremarkable except as noted in HPI and below Exam Narrative: General: well-nourished, well-appearing 81-year-old female, sitting up in bed, comfortable, NARD Neuro: awake, alert and oriented x4, speech clear, no focal neuro deficits noted HEENMT: normocephalic, atraumatic, EOMI, sclerae anicteric Respiratory: clear to auscultation bilaterally, nonlabored breathing Cardio: regular rate, regular rhythm with S1-S2 Abdomen: nondistended, normoactive bowel sounds, soft, tender to palpation in right upper quadrant Extremities: no edema, erythema, or tenderness to palpation, DP pulses 2+ bilaterally Skin: no rashes or lesions, warm and dry Psych: appropriate mood and affect, slightly anxious, judgment and insight intact Objective
[2022-04-01 16:47] LABS: Glucose Point of Care 119 mg/dl (65-105)
[2022-04-01 21:32] VITALS: BP 130/76; PULSE 83; RESP 16; TEMP 36.4; O2SAT 96
[2022-04-02] MEDS: HYDROcodone/acetaminophen (*CRX) 10-325 MG TABLET 1 TAB PO ×4 (05:29→20:02)
[2022-04-02] MEDS: LEVOTHYROXINE SODIUM 75 MCG TABLET PO (05:30)
[2022-04-02 05:58] VITALS: BP 151/77; PULSE 94; RESP 16; TEMP 36.6; O2SAT 94
[2022-04-02 05:58] LABS: Hematocrit 33.8 % (37.0-47.0); Hemoglobin 10.8 g/dL (12.0-15.0); Mean Corpuscular Hemoglobin 29.4 pg (26-34); Mean Corpuscular Volume 92.1 fl (80-100); Mean Platelet Volume 9.8 fl (7.4-10.4); Platelet Count Result 382 k/mm3 (150-375); Red Blood Count 3.67 M/mm3 (4.2-5.4); Red Cell Distribution Width 13.7 % (11.5-14.5); White Blood Count 8.9 K/mm3 (4.5-10.0)
[2022-04-02 06:02] LABS: Glucose Point of Care 116 mg/dl (65-105)
[2022-04-02 06:21] LABS: Alanine Aminotransferase 104 U/L (6-35); Albumin Level 3.1 g/dL (3.5-5.1); Alkaline Phosphatase 168 U/L (38-126); Anion Gap 9 mmol/L (8-16); Aspartate Amino Transferase 34 U/L (14-36); Bilirubin,Total 0.4 mg/dL (0.2-1.3); Blood Urea Nitrogen 4 mg/dL (7-17); Calcium 8.4 mg/dL (8.4-10.2); Carbon Dioxide 26 mmol/L (22-30); Chloride 100 mmol/L (98-107); Estimated Glomerular Filt Rate > 60; Glucose 84 mg/dL (65-110); Potassium 3.5 mmol/L (3.4-5.0); Sodium 135 mmol/L (137-145)
[2022-04-02 07:41] LABS: Glucose Point of Care 82 mg/dl (65-105)
[2022-04-02] MEDS: polyethylene glycoL 3350 17 GM POWD.PACK PO ×2 (08:10→16:41)
[2022-04-02] MEDS: POTASSIUM CHLORIDE 10 MEQ TABLET.ER PO (08:10)
[2022-04-02] MEDS: FUROSEMIDE 20 MG TABLET PO (08:10)
[2022-04-02] MEDS: FLUTICASONE PROPIONATE 0.05% NA SPR 16 GM BTL (*BKC) 1 SPRAY NASAL ×2 (08:11→20:09)
[2022-04-02] MEDS: HYDROCORTISONE 1% 30 GM CREAM 1 APPLIC TOPICAL ×2 (08:11→20:08)
--- NOTE | 2022-04-02 09:36 | PM.IMPN ---
Progress Note: A&P Assessment and Plan (1) Cholecystitis: Code(s): K81.9 - Cholecystitis, unspecified Status: Acute Assessment and Plan: presented with right upper quadrant pain. Abdominal ultrasound on presentation showed cholelithiasis with gallbladder wall thickening and pericholecystic fluid with mild biliary dilatation appreciate general surgery and Gastroenterology consultation continue IV Zosyn MRCP showed cholelithiasis and acute cholecystitis without evidence of choledocholithiasis s/p laparoscopic cholecystectomy on 03/[address] Richard. tolerated the procedure well advanced to heart healthy diet per General surgery supportive care. Analgesics available as needed. (2) Elevated LFTs: Code(s): R79.89 - Other specified abnormal findings of blood chemistry Status: Acute Assessment and Plan: Patient with markedly elevated LFTs on presentation LFTs continue to trend down no evidence of choledocholithiasis on MRCP total bilirubin levels have normalized continue to trend (3) Hypothyroidism: Code(s): E03.9 - Hypothyroidism, unspecified Status: Chronic Assessment and Plan: TSH slightly elevated (8.5) but markedly improved from last check in October 2021 (43.2) T4 is within normal limits Spoke to her PCP who recommends continue current dose and repeat in 6 weeks. (4) Chronic kidney disease (CKD) stage G3a/A1, moderately decreased glomerular filtration rate (GFR) between 45-59 mL/min/1.73 square meter and albuminuria creatinine ratio less than 30 mg/g: Code(s): N18.31 - Chronic kidney disease, stage 3a Status: Chronic Assessment and Plan: renal function is consistent with baseline (5) Diastolic heart failure: Code(s): I50.30 - Unspecified diastolic (congestive) heart failure Status: Acute Assessment and Plan: not in acute exacerbation most recent echo November 2021 showed normal left ventricular systolic function with ejection fraction of 65-70%. No pulmonary hypertension. There is grade 1 diastolic dysfunction. monitor intake and output (6) Hyperlipidemia: Code(s): E78.5 - Hyperlipidemia, unspecified Status: Chronic Assessment and Plan: statin on hold given elevated LFTs resume when clinically appropriate Subjective Date/time seen: 04/02/22 09:36 Interval history: Annel Bhatia is a 81-year-old female with a history of CKD, diastolic dysfunction, hypothyroidism, hyperlipidemia, hiatal hernia s/p Nestor fundoplication, and recent hospital admission for pyelonephritis who is seen in follow-up for acute cholecystitis. Still having severe RUQ pain, no change since yesterday. She has not received Dilaudid today. When asked if the oral medication is working she states she is alive. No N/V. Tolerating her diet. Having BMs. Spoke w/ Funmilayo from general surgery who will come evaluate her due to her ongoing pain. Review of Systems Review of Systems: All systems reviewed & are unremarkable except as noted in HPI and below Exam Narrative: General: well-nourished, well-appearing 81-year-old female, sitting up in bed, comfortable, NARD Neuro: awake, alert and oriented x4, speech clear, no focal neuro deficits noted HEENMT: normocephalic, atraumatic, EOMI, sclerae anicteric Respiratory: clear to auscultation bilaterally, nonlabored breathing Cardio: regular rate, regular rhythm with S1-S2 Abdomen: nondistended, normoactive bowel sounds, soft, moderately tender to palpation in right upper quadrant Extremities: no edema, erythema, or tenderness to palpation, DP pulses 2+ bilaterally Skin: no rashes or lesions, warm and dry Psych: appropriate mood and affect, slightly anxious, judgment and insight intact Objective Data Vital Signs Vital Signs: Vital Signs - 24 hr 04/01/22 14:00 04/01/22 20:00 04/01/22 21:32 Temperature 97.1 F L 97.6 F
--- NOTE | 2022-04-02 10:40 | PM.PNGS ---
Progress Note: A&P Assessment and Plan (1) Acute calculous cholecystitis: Code(s): K80.00 - Calculus of gallbladder with acute cholecystitis without obstruction Status: Acute Assessment and Plan: POD#2 and her incisional pain is controlled on oral analgesics. She is tolerating her diet. She has still not gotten up much since surgery or ambulated in the room. Will add PT orders to evaluate her mobility and get her up today. Dr. Richard will see the patient later today as well. If she is stable at that time and pain is controlled, then she could be discharged later today if cleared by PT. Discussed with the Hospitalist. Will continue to follow. (2) Hyperbilirubinemia: Code(s): E80.6 - Other disorders of bilirubin metabolism Status: Acute Assessment and Plan: MRCP showed no choledocholithiasis. LFTs still trending down. (3) BMI 45.0-49.9, adult: Code(s): Z68.42 - Body mass index [BMI] 45.0-49.9, adult Status: Acute (4) Diastolic heart failure: Code(s): I50.30 - Unspecified diastolic (congestive) heart failure Status: Acute (5) Chronic kidney disease (CKD) stage G3a/A1, moderately decreased glomerular filtration rate (GFR) between 45-59 mL/min/1.73 square meter and albuminuria creatinine ratio less than 30 mg/g: Code(s): N18.31 - Chronic kidney disease, stage 3a Status: Chronic Plan I have discussed the patient's case and plan of care with Dr. Richard. Subjective Subjective Date/Time Seen: 04/02/22 10:40 Post Op day: 2 (Laparoscopic cholecystectomy) Patient reports: no new complaints, still having pain (Incisional), tolerating a regular diet, flatus and afebrile Interval history: Patient seen and examined. Still reporting incisional abdominal pain, but this is currently being controlled with oral analgesics. No nausea or vomiting. She typically lives independently at home with her blind . She has not been up and ambulated in her room since surgery. She has only been getting up to the bedside commode despite encouragement of getting up yesterday. She typically walks with a walker. Review of Systems Review of Systems: All systems reviewed & are unremarkable except as noted in HPI and below Exam Const: General: alert; No acute distress Orientation/consciousness: patient oriented x3 GI: Inspection: non-distended and incision (Abdominal incisions clean and dry, glue intact.) GI Palp: Yes Soft to palpation, Yes Tenderness to palpation present (GI) (Incisional), No Guarding due to palpation present (GI) and No Rebound tenderness present Auscultation: normal bowel sounds Neuro: General: moves all extremities and no focal motor deficits Extrem: General: normal to inspection and no calf tenderness Psych: Mental Status: mental status grossly normal Insight: Good insight present (Psych) Objective Data Vital Signs Vital Signs: Vital Signs - 24 hr 04/01/22 14:00 04/01/22 20:00 04/01/22 21:32 Temperature 97.1 F L 97.6 F Pulse Rate 96 83 Respiratory Rate 18 16 Blood Pressure 133/74 130/76 Pulse Oximetry 99 96 Oxygen Delivery Room Air 04/02/22 05:58 04/02/22 08:00 Temperature 97.9 F Pulse Rate 94 Respiratory Rate 16 Blood Pressure 151/77 H Pulse Oximetry 94 Oxygen Delivery Room Air Intake/Output Intake/Output: Intake & Output 03/30/22 03/31/22 04/01/22 04/02/22 23:59 23:59 23:59 23:59 Intake Total 4320 1390 2150 800 Output Total 1400 1700 3000 1400 Balance 4155 -310 -850 -380 Meds/Results Medications: Active Medications Generic Name Dose Route Start Last Admin Trade Name Freq PRN Reason Stop Dose Admin Acetaminophen 650 mg 04/01/22 11:01 Acetaminophen 325 Mg Tablet PO Q6H PRN Mild Pain (1-3) or Fever Hydrocodone Bitart/Acetaminophen 1 tab 04/01/22 11:01 Hydrocodone/Acetaminophen (*Crx) 5-325 Mg Tablet PO Q4H PRN Pain Rated 4-6 Hydrocodone Bitart/Acetaminophen
--- NOTE | 2022-04-02 11:04 | PCPTNOTE ---
Attempted physical therapy initial evaluation, pt refused d/t pain and just now eating breakfast. Will follow.
[2022-04-02 12:05] LABS: Glucose Point of Care 124 mg/dl (65-105)
[2022-04-02 14:00] VITALS: BP 130/74; PULSE 67; RESP 20; TEMP 35.7; O2SAT 98
[2022-04-02 17:06] LABS: Glucose Point of Care 98 mg/dl (65-105)
[2022-04-02 20:00] VITALS: PULSE 78; RESP 18; O2SAT 94
[2022-04-02 21:51] LABS: Glucose Point of Care 90 mg/dl (65-105)
[2022-04-02 22:00] VITALS: BP 153/100; PULSE 78; RESP 18; TEMP 36.6; O2SAT 94
[2022-04-03] MEDS: HYDROcodone/acetaminophen (*CRX) 10-325 MG TABLET 1 TAB PO ×5 (00:09→20:45)
[2022-04-03 06:00] VITALS: BP 146/88; PULSE 78; RESP 18; TEMP 36.6; O2SAT 98
[2022-04-03] MEDS: LEVOTHYROXINE SODIUM 75 MCG TABLET PO (06:34)
[2022-04-03 06:47] LABS: Basophils Absolute Auto 0.1 K/mm3 (0.0-0.1); Eosinophils Absolute Auto 0.3 K/mm3 (0-0.3); Eosinophils Percent Auto 3.7 % (0-4.4); Hematocrit 33.8 % (37.0-47.0); Hemoglobin 10.6 g/dL (12.0-15.0); Immature Granulocyte Absolute 0.02 K/mm3 (0.00-0.031); Immature Granulocyte Percent A 0.3 % (0-0.5); Lymphocytes Absolute Auto 1.66 K/mm3 (0.9-3.2); Lymphocytes Percent Auto 24.8 % (18.3-44.2); Mean Corpuscular HGB Conc 31.4 g/dl (32-36); Mean Corpuscular Hemoglobin 29.4 pg (26-34); Mean Corpuscular Volume 93.6 fl (80-100); Mean Platelet Volume 9.9 fl (7.4-10.4); Monocytes Absolute Auto 0.5 K/mm3 (0.1-0.6); Monocytes Percent Auto 7.3 % (2.6-8.5); Neutrophils Absolute Auto 4.2 K/mm3 (1.3-6.7); Neutrophils Percent Auto 62.9 % (45.5-73.1); Platelet Count Result 365 k/mm3 (150-375); Red Blood Count 3.61 M/mm3 (4.2-5.4); Red Cell Distribution Width 13.8 % (11.5-14.5); White Blood Count 6.7 K/mm3 (4.5-10.0)
[2022-04-03 07:00] LABS: Alanine Aminotransferase 75 U/L (6-35); Albumin Level 2.9 g/dL (3.5-5.1); Alkaline Phosphatase 149 U/L (38-126); Anion Gap 6 mmol/L (8-16); Aspartate Amino Transferase 30 U/L (14-36); Bilirubin,Total 0.4 mg/dL (0.2-1.3); Blood Urea Nitrogen 6 mg/dL (7-17); Calcium 8.5 mg/dL (8.4-10.2); Carbon Dioxide 31 mmol/L (22-30); Chloride 99 mmol/L (98-107); Estimated Glomerular Filt Rate > 60; Glucose 83 mg/dL (65-110); Potassium 3.7 mmol/L (3.4-5.0); Sodium 136 mmol/L (137-145)
[2022-04-03 08:00] VITALS: PULSE 78; RESP 18; O2SAT 98
--- NOTE | 2022-04-03 08:13 | PCPTNOTE ---
Addendum entered by Mary Mendez, PT, DPT 04/03/22 08:15: States that she uses a rollator walker and puts all of her weight on it leaning forward due to knee pain and back pain. She states that she can get up to go to the bathroom with her walker and the staff at [facility] help with dressing and bathing because they are there. Original Note: patient refused to participate in PT evaluation at this time secondary to pain stating she is at a 9/10 pain. When asked if she would be willing to participate later today she states I don't know. We'll just have to see. She was comfortable and all needs were met.
[2022-04-03 08:22] LABS: Glucose Point of Care 82 mg/dl (65-105)
[2022-04-03] MEDS: FUROSEMIDE 20 MG TABLET PO (09:50)
[2022-04-03] MEDS: POTASSIUM CHLORIDE 10 MEQ TABLET.ER PO (09:50)
[2022-04-03] MEDS: polyethylene glycoL 3350 17 GM POWD.PACK PO ×2 (09:50→16:22)
[2022-04-03] MEDS: FLUTICASONE PROPIONATE 0.05% NA SPR 16 GM BTL (*BKC) 1 SPRAY NASAL ×2 (09:51→20:51)
[2022-04-03] MEDS: HYDROCORTISONE 1% 30 GM CREAM 1 APPLIC TOPICAL ×2 (09:51→20:51)
[2022-04-03] MEDS: HYDROcodone/acetaminophen (*CRX) 5-325 MG TABLET 1 TAB PO (09:55)
--- NOTE | 2022-04-03 11:40 | PM.PNGS ---
Progress Note: A&P Assessment and Plan (1) Acute calculous cholecystitis: Code(s): K80.00 - Calculus of gallbladder with acute cholecystitis without obstruction Status: Acute Assessment and Plan: exam largely benign, encourage OOB, PT today, hopefully home soon Subjective Subjective Date/Time Seen: 04/03/22 11:40 reports pain is slightly improved, cora diet, having bowel fxn Review of Systems Review of Systems: All systems reviewed & are unremarkable except as noted in HPI and below Exam Const: General: cooperative and no acute distress Resp: Auscultation: clear to auscultation bilaterally Cardio: Rate: regular rate Rhythm: regular rhythm GI: Inspection: normal to inspection, distended and incision GI Palp: Yes abdominal tenderness, Yes Soft to palpation, Yes Tenderness to palpation present (GI), No Guarding due to palpation present (GI) and No Rigid due to palpation Objective Data Vital Signs Vital Signs: Vital Signs - 24 hr 04/02/22 14:00 04/02/22 22:00 04/02/22 20:00 Temperature 35.7 C L 36.6 C Pulse Rate 67 78 78 Respiratory Rate 20 18 18 Blood Pressure 130/74 153/100 H Pulse Oximetry 98 94 94 Oxygen Delivery Room Air 04/03/22 06:00 04/03/22 08:00 Temperature 36.6 C Pulse Rate 78 78 Respiratory Rate 18 18 Blood Pressure 146/88 H Pulse Oximetry 98 98 Oxygen Delivery Room Air Intake/Output Intake/Output: Intake & Output 03/31/22 04/01/22 04/02/22 04/03/22 23:59 23:59 23:59 23:59 Intake Total 1390 2150 2670 640 Output Total 1700 3000 2775 Balance -310 -850 -105 640 Meds/Results Medications: Active Medications Generic Name Dose Route Start Last Admin Trade Name Freq PRN Reason Stop Dose Admin Acetaminophen 650 mg 04/01/22 11:01 Acetaminophen 325 Mg Tablet PO Q6H PRN Mild Pain (1-3) or Fever Hydrocodone Bitart/Acetaminophen 1 tab 04/01/22 11:01 04/03/22 09:55 Hydrocodone/Acetaminophen (*Crx) 5-325 Mg Tablet PO 1 tab Q4H PRN Administration Pain Rated 4-6 Hydrocodone Bitart/Acetaminophen 1 tab 04/01/22 11:01 04/03/22 04:36 Hydrocodone/Acetaminophen (*Crx) 10-325 Mg Tablet PO 1 tab Q4H PRN Administration Pain Rated 7-10 Fluticasone Propionate 1 spray 03/29/22 21:00 04/03/22 09:51 Fluticasone Propionate 0.05% Na Spr 16 Gm Btl (*Bkc) NASAL 1 spray Q12H SANKET Administration Furosemide 20 mg 03/30/22 09:00 04/03/22 09:50 Furosemide 20 Mg Tablet PO 20 mg DAILY SANKET Administration Hydrocortisone 1 applic 03/30/22 11:25 04/03/22 09:51 Hydrocortisone 1% 30 Gm Cream TOPICAL 1 applic Q12HR SANKET Administration Hydromorphone HCl 0.5 mg 03/29/22 11:16 04/01/22 06:50 Hydromorphone Hcl Inj (*Crx) 1 Mg/Ml Syr IV PUSH 0.5 mg Q4H PRN Administration Pain Rated 7-10 Levothyroxine Sodium 75 mcg 03/30/22 06:30 04/03/22 06:34 Levothyroxine Sodium 75 Mcg Tablet PO 75 mcg DAILY@0630 SANKET Administration Ondansetron HCl 4 mg 03/29/22 11:16 03/29/22 20:11 Ondansetron Inj 4 Mg/2 Ml Vial IV PUSH 4 mg Q4H PRN Administration Nausea Polyethylene Glycol 17 gm 03/30/22 09:00 04/03/22 09:50 Polyethylene Glycol 3350 17 Gm Powd.Pack PO 17 gm BID SANKET Administration Potassium Chloride 10 meq 03/30/22 09:00 04/03/22 09:50 Potassium Chloride 10 Meq Tablet.Er PO 10 meq DAILY SANKET Administration Radiology Results: ITS Impressions Chest X-Ray 03/29/22 08:03 Impression: 1: No acute cardiopulmonary disease. 2: Cardiomegaly. Abdomen Ultrasound 03/29/22 10:18 IMPRESSION: 1: Cholelithiasis with gallbladder wall thickening and pericholecystic fluid. Mild biliary dilatation. This constellation of findings is suspicious for cholecystitis. 2: Echogenic pancreas with mild ductal dilation. Consider pancreatitis in the appropriate clinical setting. 3: Hepatic steatosis. MRCP 03/31/22 08:30 IMPRESSION: 1. Cholelithiasis a
[2022-04-03 11:47] LABS: Glucose Point of Care 106 mg/dl (65-105)
--- NOTE | 2022-04-03 11:57 | PM.IMPN ---
Progress Note: A&P Assessment and Plan (1) Cholecystitis: Code(s): K81.9 - Cholecystitis, unspecified Status: Acute Assessment and Plan: presented with right upper quadrant pain. Abdominal ultrasound on presentation showed cholelithiasis with gallbladder wall thickening and pericholecystic fluid with mild biliary dilatation appreciate general surgery and Gastroenterology consultation Status post cholecystectomy. (2) Elevated LFTs: Code(s): R79.89 - Other specified abnormal findings of blood chemistry Status: Acute Assessment and Plan: Patient with markedly elevated LFTs on presentation LFTs continue to improve (3) Hypothyroidism: Code(s): E03.9 - Hypothyroidism, unspecified Status: Chronic Assessment and Plan: TSH slightly elevated (8.5) but markedly improved from last check in October 2021 (43.2) T4 is within normal limits Spoke to her PCP who recommends continue current dose and repeat in 6 weeks. (4) Chronic kidney disease (CKD) stage G3a/A1, moderately decreased glomerular filtration rate (GFR) between 45-59 mL/min/1.73 square meter and albuminuria creatinine ratio less than 30 mg/g: Code(s): N18.31 - Chronic kidney disease, stage 3a Status: Chronic Assessment and Plan: renal function is consistent with baseline (5) Diastolic heart failure: Code(s): I50.30 - Unspecified diastolic (congestive) heart failure Status: Acute Assessment and Plan: No exacerbation (6) Hyperlipidemia: Code(s): E78.5 - Hyperlipidemia, unspecified Status: Chronic Assessment and Plan: statin on hold given elevated LFTs resume when clinically appropriate Subjective Date/time seen: 04/03/22 11:57 Still having complaints of abdominal pain. No nausea vomiting. LFTs are improved. Exam Narrative: General: well-nourished, well-appearing 81-year-old female, sitting up in bed, comfortable, NARD Neuro: awake, alert and oriented x4, speech clear, no focal neuro deficits noted HEENMT: normocephalic, atraumatic, EOMI, sclerae anicteric Respiratory: clear to auscultation bilaterally, nonlabored breathing Cardio: regular rate, regular rhythm with S1-S2 Abdomen: nondistended, normoactive bowel sounds, soft, moderately tender to palpation in right upper quadrant Extremities: no edema, erythema, or tenderness to palpation, DP pulses 2+ bilaterally Skin: no rashes or lesions, warm and dry Psych: appropriate mood and affect, slightly anxious, judgment and insight intact Const: General: comfortable and no acute distress Other: Morbid obesity HENMT: Ears: TM's normal bilaterally General nose exam: Normal nares present Mouth: Yes dry mucous membranes Eyes: General: appearance normal, both eyes and all related structures Sclera: sclerae normal Pupils: Equal, round and reactive pupils present EOM: EOMs intact bilaterally Neck: Neck: supple and no JVD Lymphatic: lymphadenopathy not noted Chest: Other: Not tender to palpation Resp: Effort & Inspection: normal respiratory effort Auscultation: clear to auscultation bilaterally Cardio: Rate: regular rate Rhythm: regular rhythm Heart sounds: no gallops, no murmurs and no rubs GI: Inspection: non-distended Auscultation: normal bowel sounds Skin: General skin exam: normal color Lesions: no lesions noted Rashes: no rashes noted Wounds: no wounds Neuro: General: No gait normal (Did not test) Cranial nerves: Yes Equal, round and reactive pupils present Speech: normal speech Motor exam (neuro): 5/5 motor strength present throughout and Normal motor muscle tone present throughout Sensory Exam: normal sensation Extrem: General: normal to inspection, no edema and no pedal edema Other: Moves all extremities freely and equally without deficit. Psych: Mental Status: mental status grossly normal Affect: normal affect Objective Data Vital Si
[2022-04-03 14:00] VITALS: BP 114/77; PULSE 85; RESP 17; TEMP 36.7; O2SAT 99
[2022-04-03 17:17] LABS: Glucose Point of Care 104 mg/dl (65-105)
[2022-04-03 22:00] VITALS: BP 153/73; PULSE 71; RESP 16; TEMP 36.6; O2SAT 98
[2022-04-04 06:00] VITALS: BP 160/107; PULSE 99; RESP 18; TEMP 36.3; O2SAT 97
[2022-04-04] MEDS: HYDROcodone/acetaminophen (*CRX) 10-325 MG TABLET 1 TAB PO ×2 (06:31→12:27)
[2022-04-04] MEDS: LEVOTHYROXINE SODIUM 75 MCG TABLET PO (06:31)
[2022-04-04] MEDS: hydrALAZINE HCL 20 MG/ML VIAL 10 MG IV PUSH (06:31)
[2022-04-04 07:51] LABS: Glucose Point of Care 92 mg/dl (65-105)
[2022-04-04] MEDS: HYDROmorphone HCL INJ (*CRX) 1 MG/ML SYR 0.5 MG IV PUSH (08:40)
[2022-04-04] MEDS: FLUTICASONE PROPIONATE 0.05% NA SPR 16 GM BTL (*BKC) 1 SPRAY NASAL (08:40)
[2022-04-04] MEDS: polyethylene glycoL 3350 17 GM POWD.PACK PO (08:40)
[2022-04-04] MEDS: HYDROCORTISONE 1% 30 GM CREAM 1 APPLIC TOPICAL (08:40)
[2022-04-04] MEDS: POTASSIUM CHLORIDE 10 MEQ TABLET.ER PO (08:40)
[2022-04-04] MEDS: FUROSEMIDE 20 MG TABLET PO (08:40)
[2022-04-04 11:16] LABS: Glucose Point of Care 113 mg/dl (65-105)
[2022-04-04 11:32] VITALS: BMI 46.0
--- NOTE | 2022-04-04 12:04 | PM.DS ---
DS: Admitting Diagnosis Discharge Date April 04, 2022 Admitting Diagnosis Acute cholecystitis DS: Discharge Diagnosis Discharge Diagnosis (1) Cholecystitis: Code(s): K81.9 - Cholecystitis, unspecified Status: Acute Assessment and Plan: presented with right upper quadrant pain. Abdominal ultrasound on presentation showed cholelithiasis with gallbladder wall thickening and pericholecystic fluid with mild biliary dilatation appreciate general surgery and Gastroenterology consultation Status post cholecystectomy. Doing well. Patient can be discharged (2) Elevated LFTs: Code(s): R79.89 - Other specified abnormal findings of blood chemistry Status: Acute Assessment and Plan: Patient with markedly elevated LFTs on presentation LFTs continue to improve (3) Hypothyroidism: Code(s): E03.9 - Hypothyroidism, unspecified Status: Chronic Assessment and Plan: TSH slightly elevated (8.5) but markedly improved from last check in October 2021 (43.2) T4 is within normal limits Spoke to her PCP who recommends continue current dose and repeat in 6 weeks. (4) Chronic kidney disease (CKD) stage G3a/A1, moderately decreased glomerular filtration rate (GFR) between 45-59 mL/min/1.73 square meter and albuminuria creatinine ratio less than 30 mg/g: Code(s): N18.31 - Chronic kidney disease, stage 3a Status: Chronic Assessment and Plan: renal function is consistent with baseline (5) Diastolic heart failure: Code(s): I50.30 - Unspecified diastolic (congestive) heart failure Status: Acute Assessment and Plan: No exacerbation (6) Hyperlipidemia: Code(s): E78.5 - Hyperlipidemia, unspecified Status: Chronic Assessment and Plan: statin on hold given elevated LFTs resume when clinically appropriate DS: Summary Hospital Course Hospital Course: Patient's would for abdominal pain found have acute cholecystitis. Patient is status post cholecystectomy. Pain medication on discharge. No antibiotics needed. Patient can be discharged to skilled facility Time Spent with Patient Time attestation: Total time spent providing and/or coordinating discharge services: Exam Narrative: General: well-nourished, well-appearing 81-year-old female, sitting up in bed, comfortable, NARD Neuro: awake, alert and oriented x4, speech clear, no focal neuro deficits noted HEENMT: normocephalic, atraumatic, EOMI, sclerae anicteric Respiratory: clear to auscultation bilaterally, nonlabored breathing Cardio: regular rate, regular rhythm with S1-S2 Abdomen: nondistended, normoactive bowel sounds, soft, moderately tender to palpation in right upper quadrant Extremities: no edema, erythema, or tenderness to palpation, DP pulses 2+ bilaterally Skin: no rashes or lesions, warm and dry Psych: appropriate mood and affect, slightly anxious, judgment and insight intact Const: General: comfortable and no acute distress Other: Morbid obesity HENMT: Ears: TM's normal bilaterally General nose exam: Normal nares present Mouth: Yes dry mucous membranes Eyes: General: appearance normal, both eyes and all related structures Sclera: sclerae normal Pupils: Equal, round and reactive pupils present EOM: EOMs intact bilaterally Neck: Neck: supple and no JVD Lymphatic: lymphadenopathy not noted Chest: Other: Not tender to palpation Resp: Effort & Inspection: normal respiratory effort Auscultation: clear to auscultation bilaterally Cardio: Rate: regular rate Rhythm: regular rhythm Heart sounds: no gallops, no murmurs and no rubs GI: Inspection: non-distended Auscultation: normal bowel sounds Skin: General skin exam: normal color Lesions: no lesions noted Rashes: no rashes noted Wounds: no wounds Neuro: General: No gait normal (Did not test) Cranial nerves: Yes Equal, round and reactive pupils present Speech: normal spee
[2022-04-04 13:10] LABS: EDCOVIDSCREEN Negative (Negative)
== END 2022-04-04 14:25 | DRG 418 ==
LOC: ANHED 07:54 → ANH3MEDSUR 12:54
PROVIDERS: Chiropractor; Emergency Medicine; Internal Medicine Gastroenterology; Physician Assistant; Surgery; Admitting Provider Student in an Organized Health Care Education/Training Program; Emergency Provider General Practice; PCP Internal Medicine; Visit Provider Physician Assistant
PROC: 0FT44ZZ Resection of Gallbladder, Percutaneous Endoscopic Approach (ICD-10-PCS; CPT 47562; principal; 2022-03-31 10:30)
DX: K80.12 Calculus of gallbladder with acute and chronic cholecystitis without obstruction (principal); C24.9 Malignant neoplasm of biliary tract, unspecified; Z68.42 Body mass index [BMI] 45.0-49.9, adult; I50.32 Chronic diastolic (congestive) heart failure; Z20.822 Contact with and (suspected) exposure to COVID-19; E66.01 Morbid (severe) obesity due to excess calories; E80.6 Other disorders of bilirubin metabolism; E55.9 Vitamin D deficiency, unspecified; E78.5 Hyperlipidemia, unspecified; M17.0 Bilateral primary osteoarthritis of knee; M16.12 Unilateral primary osteoarthritis, left hip; N18.31 Chronic kidney disease, stage 3a; R79.89 Other specified abnormal findings of blood chemistry; Z90.710 Acquired absence of both cervix and uterus; L40.9 Psoriasis, unspecified; E78.1 Pure hyperglyceridemia; E06.3 Autoimmune thyroiditis; Z79.899 Other long term (current) drug therapy; Z98.890 Other specified postprocedural states
CPT/HCPCS: 36415; 51701; 71045; 74183; 76376; 76705; 80048; 80053; 80074; 80076; 81001; 82948; 83690; 84439; 84443; 84480; 85025; 85027; 85610; 85730; 86850; 86900; 86901; 87040; 87147; 87181; 87186; 87426; 88304; 93005; 96365; 96375; 97161; 99285; A9270; A9577; C9803; J0360; J1100; J1170; J2405; J2543; J2704; J2710; J3010; J7030; J7120; U0003; U0005

== ENCOUNTER 2022-12-24 14:11 | Outpatient (CLI) | payer MEDICARE, SELFPAY ==
[2022-12-24 20:41] LABS: Free T4 Free Thyroxine Reflex < 0.07 ng/dL (0.78-2.19)
== END 2022-12-24 14:12 | disposition home or self-care (01) ==
LOC: ANHGOSHLAB 14:13
PROVIDERS: PCP Internal Medicine; Visit Provider Clinical Nurse Specialist
DX: E03.9 Hypothyroidism, unspecified (principal)
CPT/HCPCS: 36415; 84439; 84443

== ENCOUNTER 2023-01-05 12:28 | Outpatient (CLI) | payer MEDICARE, SELFPAY ==
[2023-01-05 13:01] LABS: Basophils Absolute Auto 0.1 K/mm3 (0.0-0.1); Basophils Percent Auto 0.9 % (0.2-1.2); Eosinophils Absolute Auto 0.1 K/mm3 (0-0.3); Eosinophils Percent Auto 1.4 % (0-4.4); Hematocrit 46.4 % (37.0-47.0); Hemoglobin 15.5 g/dL (12.0-15.0); Immature Granulocyte Absolute 0.02 K/mm3 (0.00-0.031); Immature Granulocyte Percent A 0.3 % (0-0.5); Lymphocytes Absolute Auto 2.21 K/mm3 (0.9-3.2); Lymphocytes Percent Auto 33.2 % (18.3-44.2); Mean Corpuscular HGB Conc 33.4 g/dl (32-36); Mean Corpuscular Hemoglobin 30.1 pg (26-34); Mean Corpuscular Volume 90.1 fl (80-100); Mean Platelet Volume 10.4 fl (7.4-10.4); Monocytes Absolute Auto 0.4 K/mm3 (0.1-0.6); Monocytes Percent Auto 5.4 % (2.6-8.5); Neutrophils Absolute Auto 3.9 K/mm3 (1.3-6.7); Neutrophils Percent Auto 58.8 % (45.5-73.1); Platelet Count Result 290 k/mm3 (150-375); Red Blood Count 5.15 M/mm3 (4.2-5.4); Red Cell Distribution Width 15.1 % (11.5-14.5); White Blood Count 6.7 K/mm3 (4.5-10.0)
[2023-01-05 13:18] LABS: Alanine Aminotransferase 26 U/L (6-35); Albumin Level 4.8 g/dL (3.5-5.1); Alkaline Phosphatase 68 U/L (38-126); Anion Gap 7 mmol/L (8-16); Aspartate Amino Transferase 41 U/L (14-36); Bilirubin,Total 0.8 mg/dL (0.2-1.3); Blood Urea Nitrogen 17 mg/dL (7-17); Calcium 9.7 mg/dL (8.4-10.2); Carbon Dioxide 30 mmol/L (22-30); Chloride 96 mmol/L (98-107); Estimated Glomerular Filt Rate 60; Glucose 90 mg/dL (65-110); Phosphorus 3.4 mg/dL (2.5-4.5); Sodium 133 mmol/L (137-145)
[2023-01-05 13:29] LABS: Parathyroid Intact 98.5 pg/mL (7.5-53.5)
[2023-01-05 13:34] LABS: Vitamin D 25 Hydroxy 34.7 ng/mL
[2023-01-05 13:44] LABS: Hemoglobin A1C 5.6 % (<5.7)
[2023-01-06 08:17] LABS: Creatinine Urine 191.9 mg/dL; Total Protein Urine Random 15 mg/dL; Ur Ttl Prot Creatinine Ratio 0.08 mg/mg (0-0.20)
== END 2023-01-05 12:29 | disposition home or self-care (01) ==
PROVIDERS: PCP Internal Medicine; Referring Provider Clinical Nurse Specialist; Visit Provider Internal Medicine Nephrology
DX: I50.9 Heart failure, unspecified (principal); N18.31 Chronic kidney disease, stage 3a; E55.9 Vitamin D deficiency, unspecified; R73.09 Other abnormal glucose; N25.81 Secondary hyperparathyroidism of renal origin
CPT/HCPCS: 36415; 80053; 80069; 82306; 82570; 83036; 83970; 84156; 85025

== ENCOUNTER → 2023-03-03 11:26 | Outpatient (CLI) | payer MEDICARE, SELFPAY ==
--- NOTE | ~2023-03-03 | US_ITS ---
Renal-Bladder ultrasound Clinical History: Chronic kidney disease Technique: Real-time sonographic imaging of the kidneys and urinary bladder was performed. Findings: The right kidney measures 10.3 cm in length and the left kidney measures 10.4 cm. There is no hydronephrosis or renal calculus identified. Renal cortical echogenicity is within normal limits. No renal mass lesion is identified. The urinary bladder is partially distended at the time of this exam. No intraluminal echoes are ident ified. No abnormal wall thickening is seen. Impression: No significant abnormality seen. Reviewed, dictated and finalized at location . Impression: No significant abnormality seen.
== END ==
PROVIDERS: PCP Internal Medicine Nephrology; Visit Provider Internal Medicine Nephrology
DX: N18.2 Chronic kidney disease, stage 2 (mild) (principal)
CPT/HCPCS: 76775

== ENCOUNTER 2023-03-03 11:55 | Outpatient (CLI) | payer MEDICARE, SELFPAY ==
[2023-03-03 12:48] LABS: Albumin Level 4.2 g/dL (3.5-5.1); Anion Gap 6 mmol/L (8-16); Blood Urea Nitrogen 13 mg/dL (7-17); Carbon Dioxide 29 mmol/L (22-30); Chloride 96 mmol/L (98-107); Estimated Glomerular Filt Rate > 60; Glucose 89 mg/dL (65-110); Magnesium 2.1 mg/dL (1.6-2.3); Phosphorus 4.2 mg/dL (2.5-4.5); Sodium 131 mmol/L (137-145)
[2023-03-03 14:08] LABS: Creatinine Urine 19.4 mg/dL; Total Protein Urine Random 13 mg/dL; Ur Ttl Prot Creatinine Ratio 0.67 mg/mg (0-0.20)
== END 2023-03-03 11:56 | disposition home or self-care (01) ==
PROVIDERS: PCP Internal Medicine Nephrology; Visit Provider Internal Medicine Nephrology
DX: N18.2 Chronic kidney disease, stage 2 (mild) (principal)
CPT/HCPCS: 36415; 80069; 82570; 83735; 84156

== ENCOUNTER 2023-07-01 11:57 | Outpatient (CLI) | payer MEDICARE, SELFPAY ==
[2023-07-01 12:41] LABS: Albumin Level 3.9 g/dL (3.5-5.1); Anion Gap 6 mmol/L (8-16); Blood Urea Nitrogen 16 mg/dL (7-17); Calcium 8.7 mg/dL (8.4-10.2); Carbon Dioxide 25 mmol/L (22-30); Chloride 103 mmol/L (98-107); Estimated Glomerular Filt Rate > 60; Glucose 96 mg/dL (65-110); Phosphorus 3.1 mg/dL (2.5-4.5); Potassium 3.8 mmol/L (3.4-5.0); Sodium 134 mmol/L (137-145)
[2023-07-01 12:59] LABS: Creatinine Urine 52.8 mg/dL; Total Protein Urine Random 12 mg/dL; Ur Ttl Prot Creatinine Ratio 0.23 mg/mg (0-0.20)
[2023-07-01 13:13] LABS: Free T4 Free Thyroxine 0.58 ng/mL (0.78-2.19)
== END 2023-07-01 11:58 | disposition home or self-care (01) ==
PROVIDERS: PCP Internal Medicine; Referring Provider Clinical Nurse Specialist; Visit Provider Internal Medicine Nephrology
DX: E03.9 Hypothyroidism, unspecified (principal); E06.3 Autoimmune thyroiditis; N18.2 Chronic kidney disease, stage 2 (mild); R80.9 Proteinuria, unspecified
CPT/HCPCS: 36415; 80069; 82570; 84156; 84439; 84443

== ENCOUNTER 2023-12-21 12:45 | Outpatient (CLI) | payer MEDICARE, SELFPAY ==
[2023-12-21 13:26] LABS: Hemoglobin A1C 5.1 % (<5.7)
[2023-12-21 13:33] LABS: Albumin Level 4.3 g/dL (3.5-5.1); Anion Gap 7 mmol/L (4-12); Blood Urea Nitrogen 17 mg/dL (7-17); Calcium 9.5 mg/dL (8.4-10.2); Carbon Dioxide 27 mmol/L (22-30); Chloride 99 mmol/L (98-107); Estimated Glomerular Filt Rate > 60; Glucose 96 mg/dL (65-110); Phosphorus 3.9 mg/dL (2.5-4.5); Potassium 4.4 mmol/L (3.4-5.0); Sodium 133 mmol/L (137-145)
[2023-12-21 13:55] LABS: Free T4 Free Thyroxine 2.21 ng/mL (0.78-2.19)
[2023-12-21 14:02] LABS: Creatinine Urine 207.5 mg/dL
[2023-12-21 14:04] LABS: Thyroid Stimulating Hormone 0.545 uIU/mL (0.465-4.680)
[2023-12-21 14:07] LABS: Total Protein Urine Random < 5 mg/dL; Ur Ttl Prot Creatinine Ratio < 0.02 mg/mg (0-0.20)
== END 2023-12-21 12:46 | disposition home or self-care (01) ==
LOC: ANHLAB 12:49
PROVIDERS: PCP Internal Medicine; Referring Provider Clinical Nurse Specialist; Visit Provider Internal Medicine Nephrology
DX: E06.3 Autoimmune thyroiditis (principal); E87.1 Hypo-osmolality and hyponatremia; N18.2 Chronic kidney disease, stage 2 (mild); R73.09 Other abnormal glucose
CPT/HCPCS: 36415; 80069; 82570; 83036; 84156; 84439; 84443

== ENCOUNTER 2024-06-23 10:54 | Outpatient (CLI) | payer MEDICARE, SELFPAY ==
[2024-06-23 11:53] LABS: Basophils Absolute Auto 0.1 K/mm3 (0.0-0.1); Basophils Percent Auto 0.9 % (0.2-1.2); Eosinophils Absolute Auto 0.3 K/mm3 (0-0.3); Eosinophils Percent Auto 4.8 % (0-4.4); Hematocrit 41.2 % (37.0-47.0); Hemoglobin 13.4 g/dL (12.0-15.0); Immature Granulocyte Absolute 0.02 K/mm3 (0.00-0.031); Immature Granulocyte Percent A 0.3 % (0-0.5); Lymphocytes Absolute Auto 1.79 K/mm3 (0.9-3.2); Lymphocytes Percent Auto 30.5 % (18.3-44.2); Mean Corpuscular HGB Conc 32.5 g/dl (32-36); Mean Corpuscular Hemoglobin 29.3 pg (26-34); Mean Corpuscular Volume 90.2 fl (80-100); Mean Platelet Volume 9.7 fl (7.4-10.4); Monocytes Absolute Auto 0.5 K/mm3 (0.1-0.6); Monocytes Percent Auto 7.7 % (2.6-8.5); Neutrophils Absolute Auto 3.3 K/mm3 (1.3-6.7); Neutrophils Percent Auto 55.8 % (45.5-73.1); Platelet Count Result 313 k/mm3 (150-375); Red Blood Count 4.57 M/mm3 (4.2-5.4); Red Cell Distribution Width 12.8 % (11.5-14.5); White Blood Count 5.9 K/mm3 (4.5-10.0)
[2024-06-23 12:10] LABS: Creatinine Urine 47.7 mg/dL; Total Protein Urine Random 7 mg/dL; Ur Ttl Prot Creatinine Ratio 0.15 mg/mg (0-0.20)
[2024-06-23 12:13] LABS: Albumin Level 4.1 g/dL (3.5-5.1); Anion Gap 6 mmol/L (4-12); Blood Urea Nitrogen 28 mg/dL (7-17); Calcium 9.3 mg/dL (8.4-10.2); Carbon Dioxide 30 mmol/L (22-30); Chloride 97 mmol/L (98-107); Estimated Glomerular Filt Rate 60; Glucose 95 mg/dL (65-110); Phosphorus 3.4 mg/dL (2.5-4.5); Potassium 4.6 mmol/L (3.4-5.0); Sodium 133 mmol/L (137-145)
== END 2024-06-23 10:55 | disposition home or self-care (01) ==
LOC: ANHLAB 11:00
PROVIDERS: PCP Internal Medicine; Referring Provider Internal Medicine Nephrology; Visit Provider Nurse Practitioner
DX: N18.2 Chronic kidney disease, stage 2 (mild) (principal); M89.49 Other hypertrophic osteoarthropathy, multiple sites; Z13.228 Encounter for screening for other metabolic disorders
CPT/HCPCS: 36415; 80069; 82570; 84156; 85025

== ENCOUNTER 2025-01-05 15:23 | Outpatient (CLI) | payer MEDICARE, SELFPAY ==
--- OUTSIDE RECORDS SUMMARY | 2025-01-05 15:42 | XMS_ITS | Clinical Summary ---
Author Organization [facility] Address [address] [place] [address] Care Team Providers Care Closing Manager Name Role Phone Ashwin Ward MD Unavailable [phone] Hubert Barros DO Primary Care Provider [phone]- [phone] Allergies No known active allergies Medications furosemide (LASIX) 20 mg tablet Take 2 tablets (40 mg total) by mouth every morning Thursday, , Sat 80 MWF 06/23/2017 Active HYDROcodone-mercedes taminophen (NORCO) 5-325 mg per tabletIndicatio ns:Pain Take 1 tablet by mouth every 8 (eight) hours as needed for pain Active celecoxib (CeleBREX) 200 mg capsule Take 1 capsule (200 mg total) by mouth 2 (two) times a day 04/07/2024 Active Ozempic 2 mg/dose (8 mg/3 mL) pen injector injection Inject 2 mg under the skin once a week 04/29/2024 Active furosemide (LASIX) 40 mg tablet TAKE 2 TABLETS BY MOUTH ON MONDAYS// YS AND 1 TABLET ON TUESDAYS/Thu//Sundays04/04/2024 Active levothyroxine (SYNTHROID) 100 mcg tablet 06/03/2024 Active Active Problems Problem Noted Date Diagnosed Date Autoimmune thyroiditis 06/07/2024 Chronic kidney disease, stage 2 (mild) Elevated carcinoembryonic antigen (CEA) 06/07/20 Hypo-osmolality and hyponatremia 06/07/2024 Impacted cerumen, unspecified ear 06/07/2024 Other abnormal glucose 06/07/2024 Other abnormal tumor markers 06/07/2024 Proteinuria, unspecified 06/07/2024 Grade I diastolic dysfunction 03/08/2024 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 ye 09/09/2023 Combined forms of age-related cataract of right eye 07/22/2023 Dysuria 05/14/2022 Fluid retention in legs 12/17/2021 Osteopenia 12/17/2021 Arthritis 11/22/2021 Osteoarthritis 11/22/2021 Hyperlipidemia 11/22/2021 Hypoxemia 11/22/2021 Low back pain 11/22/2021 Morbid (severe) obesity due to excess calories 0 11/22/2021 Psoriasis 11/22/2021 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 Stage 3a chronic kidney disease 11/22/2021 Hypothyroidism 11/22/2021 Weakness 11/22/2021 Snoring 05/04/2018 Osteoarthritis of both knees 01/28/2018 Overview (06/07/2024): XR Osteoarthritis of left hip 01/28/2018 Overview (06/07/2024): XR Morbid obesity with BMI of 45.0-49.9, adult 07/08 CANTOR (dyspnea on exertion) 07/17/2017 Localized edema 07/17/2017 Acquired hypothyroidism 07/17/2017 STU (obstructive sleep apnea) 07/17/2017 Chronic fatigue 07/17/2017 First degree AV block 07/17/2017 Vitamin D deficiency 09/07/2014 Overview (06/07/2024): Vitamin D <13 in 2014 Immunizations Immunization Administration Dates Next Due Influenza, Quad, Adjuvantated, Intramuscular 04/2023 Surgical History Surgery Date Site/Laterality Comments HYSTERECTOMY ESOPHAGECTOMY CHOLECYSTECTOMY 09/07/2022 - 09/06/2023 Medical History Medical History Date Comments Sleep apnea Chronic kidney disease Diastolic dysfunction Hyperlipidemia Family History Medical History Relation Name Comments Lung cancer Brother COPD Father Clotting disorder Mother Heart disease Mother Anesthesia problems Neg Hx Relation Name Status Comments Brother Father (Age 92) Mother (Age 91) Social History Tobacco Use Types Packs/Day Years Used Date Smoking Tobacco: Never Smokeless Tobacco: Never Tobacco Cessation:Counseling Given: Not Answered Alcohol Use Standard Drinks/Week Comments Yes 0 (1 standard drink = 0.6 oz pur e alcohol) AUDIT-C Answer Date Recorded Q1: How often do you have a drink containing alcohol? Never 03/17/2024 Q2: How many drinks containi ng alcohol do you have on a typical day when you are drinking? Patient does not drink Q3: How often do you have si x or more drinks on one occasion? Never 03/17/2024 Personal Safety Answer Date Recorded Have you ever been in or are you currently in a harmful physical or emotional relationship or is someone making you feel afraid or unsafe? Denies 09/10/2023 Comments No Sex and Gender Information Value Date Recorded Sex Assigned at Not on file Legal Sex Female 2:49 AM [employer] Gender Identity Female 02/16/2024 6:42 AM CDT Sexual Orientation Straight 02/16/2024 6: 42 AM CDT Obstetrics History Last Filed Vital Signs Vital Sign Reading Time Taken Comments Blood Pressure 114/86 06/07/2024 12:23 PM CDT Pulse 97 06/07/2024 12:23 PM CDT Temperature 36.5 C (97.7 F) 06/07/2024 12:23 PM CDT Respiratory Rate 16 06/07/2024 12:2 3 PM CDT Oxygen Saturation 94% 06/07/2024 12: 23 PM CDT Inhaled Oxygen Concentration - - Weight 91.2 kg (201 lb) 06/07/2024 12:2 3 PM CDT pt reported, wheelchair Height 149.9 cm (4' 11 ) 05/12/2024 1:5 4 PM CDT Body Mass Index 40.6 05/12/2024 1:54 PM CDT Plan of Treatment Health Maintenance Due Date Last Done Comments Depression Screening 1940 Osteoporosis Screening-Bone Density Scan 1942 DTaP/Tdap/Td Vaccine (1 - Tdap) 1953 Hepatitis B Screening 1960 Pneumococcal vaccine 65+ (1 of 1 - PCV) 1992 Zoster Vaccine (1 of 2) 1992 Well Visit 65+ 2007 Covid-19 Vaccine (2023-2 5 season) 2024 07/15/2023, 06/26/2022, 12/03/2021, Additional history exists Fall Risk Assessment 09/10/2024 09/10/2023 Influenza Vaccine (Season Ended) 2025 07/15/20 23 Medical Devices Implanted Type Area Certified Hyperbaric Technologist Device Identifier Shelf Expiration Date Model / Serial / Lot [employer] Acrysof Iq Natural Stableforce Acrysert 6mm 13mm 1 Piece Foldable [id number].265 - [id number] - [id number] Implanted:Qty: 1 on 08/13/2023 by Wilfredo Magdaleno MD at [facility] Lens Right: Lens [employer] [id number] 02/02/2027 [id number].26 5 / [id number] / 0 [employer] Acrysof 6mm 13mm Multipiece Foldable Anterior Asymmetric Uv [id number].265 - [id number] - [id number] Implanted:Qty: 1 on 09/10/2023 by Wilfredo Magdaleno MD at [facility] [employer] Lens Left: Eye [employer] [id number] 08/06/2024 MA60AC.26 5 / [id number] / 0 Insurance [facility] [employer] [facility] [employer] Care Teams Closing Manager Relationship Specialty Start Date End Date Hubert Barros DO [address] [place] [address] PCP - General Internal Medicine 03/08/24 Ashwin Ward MD [address] [place] [address] Medical Oncologist/Insights Analyst Medical Oncology 02/22/24
--- OUTSIDE RECORDS SUMMARY | 2025-01-05 15:42 | XMS_ITS | Clinical Summary ---
Author Organization [facility] Address [address] [place] [address] Phone Care Team Providers Care Hotel Casino Floorperson Name Role Phone Unavailable Primary Care Provider Unavailabl e Social History Tobacco Use Types Packs/Day Years Used Date Smoking Tobacco: Never Assessed Comments Unknown Sex and Gender Information Value Date Recorded Sex Assigned at Not on file Legal Sex Female 3:20 PM CDT Gender Identity Not on file Sexual Orientation Not on file Plan of Treatment Health Maintenance Due Date Last Done Comments DEXA Bone Density 1940 Hepatitis C Virus (HCV) Screening 1940 TdaP Immunization 1940 Pneumococcal Immunization (5 0+ years) (1 of 1 - PCV) 1992 Zoster Immunization (1 of 2) 1992 Respiratory Syncytial Virus (RSV) Immunization (Adult) (1 - 1-dose 75+ series) 2017 Influenza Immunization (#1) 2024 SARS-COV-2 Immunization ( - 2023- season) 2024 Hepatitis B Immunization Aged Out No longer eligible based on patient's age to complete this topic Meningococcal Immunization (ACWY) Aged Out No longer eligible based on patient's age to complete this topic Rotavirus Immunization Aged Out No lo nger eligible based on patient's age to complete this topic Insurance MEDICARE C AETNA
--- OUTSIDE RECORDS SUMMARY | 2025-01-05 15:42 | XMS_ITS | Clinical Summary ---
Author Organization [facility] Address [address] [place] [address] Care Team Providers Care Gravity Meter Operator Name Role Phone Hubert Barros Primary Care Provider Allergies No known active allergies Medications levothyroxine 75 mcg tablet Take 1 Tablet by mouth daily. 2 Active furosemide (LASIX) 20 mg tablet Take 1 Tablet by mouth daily. 2 Active amoxicillin-cla vulanate (AUGMENTIN) 500-125 mg tablet Take 1 Tablet by mouth daily. 2 Active diphenhydrAMINE (BENADRYL) 25 mg capsule Take 25 mg by mouth daily at bedtime. Active fluticasone propionate (FLONASE) 50 mcg/spray [place], Suspension nasal inhaler Administer 1 [place] in each nostril daily. 2 Active HYDROcodone-mercedes taminophen (NORCO) 5-325 mg tablet Take 1 Tablet by mouth 1 time daily as needed. 2 Active acetaminophen (TYLENOL) 500 mg tablet Take 1,000 mg by mouth every 6 hours. Active Victoza 2-Holger 0.6 mg/0.1 mL (18 mg/3 mL) Inject by subcutaneous injection every 7 days. 2 Active potassium chloride (KLOR-CON) 10 mEq Extended Release tablet Take 1 Tablet by mouth daily. 2 Active Active Problems No known active problems Family History Medical History Relation Name Comments Lung Cancer Brother Arthritis Father COPD Father Prostate Cancer Father Healthy Maternal Grandfather Healthy Maternal Grandmother Heart Disease Mother Stroke Mother Thyroid Disease Mother Unknown Paternal Grandfather Healthy Paternal Grandmother Heart Disease Sister Hypertension Son Relation Name Status Comments Brother Alive Father Maternal Grandfather Maternal Grandmother Mother Paternal Grandfather Paternal Grandmother Sister Alive Son Alive Social History Tobacco Use Types Packs/Day Years Used Date Smoking Tobacco: Never Smokeless Tobacco: Never Alcohol Use Standard Drinks/Week Comments Not Currently 5 (1 standard drink = 0.6 oz pur e alcohol) Comments Unknown Sex and Gender Information Value Date Recorded Sex Assigned at Not on file Legal Sex Female 11:17 AM CDT Gender Identity Not on file Sexual Orientation Not on file Last Filed Vital Signs Vital Sign Reading Time Taken Comments Blood Pressure 120/70 03/20/2022 11:58 AM CDT Pulse 99 03/20/2022 11:58 AM CDT Temperature - - Respiratory Rate - - Oxygen Saturation 94% 03/20/2022 11:58 AM CDT Inhaled Oxygen Concentration - - Weight 98.2 kg (216 lb 6.4 oz) 03/20/2022 11:58 AM CDT Height 144.8 cm (4' 9 ) 03/20/2022 11:58 AM CDT Body Mass Index 46.83 03/20/2022 11:58 AM CDT Plan of Treatment Health Maintenance Due Date Last Done Comments PNEUMOCOCCAL VACCINE 50+ YEARS (1 of 1 - PCV) 05/09/19 92 ZOSTER VACCINE (1 of 2) 1992 OSTEOPOROSIS SCREENING 2007 RSV VACCINE (60+ or ) (1 - 1-dose 75+ series) 2017 INFLUENZA VACCINE (#1) 2024 DTAP/TDAP/TD VACCINES (2 - Td or Tdap) 05/04/2028 Insurance [facility] Care Teams Gravity Meter Operator Relationship Specialty Start Date End Date Hubert Barros DO [address] [address] PCP - General Internal Medicine 02/13/22
--- OUTSIDE RECORDS SUMMARY | 2025-01-05 15:42 | XMS_ITS | Referral Summary ---
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 Gender Identity Female 02/16/2024 6:42 AM CDT Sexual Orientation Straight 02/16/2024 6: 42 AM CDT Last Filed Vital Signs Vital Sign Reading [...] 05/12/2024 1:54 PM CDT Plan of Treatment Not on file Medical Devices Implanted Type Area Art Critic Device Identifier Shelf Expiration Date Model / Serial / Lot [employer] Acrysof Iq Natural Stableforce Acrysert 6mm 13mm 1 Piece Foldable Sn60wf.265 - [id number] - [id number] Implanted:Qty: 1 on 08/13/2023 by Wilfredo Magdaleno MD at [facility] Lens Right: Lens [employer] [id number] 02/02/2027 [id number].26 5 / [id number] [employer] Acrysof 6mm 13mm Multipiece Foldable Anterior Asymmetric Uv Ma60ac.265 - [id number] - [id number] Implanted:Qty: 1 on 09/10/2023 by Wilfredo Magdaleno MD at [facility] Lens Left: Eye [employer] [id number] 08/06/2024 MA60AC.26 5 / [id number] / 0 Insurance [employer] [facility] [employer] Care Teams Demand Planner Relationship Specialty Start Date End Date Hubert Barros DO [id number] [place] [address] PCP - General Internal Medicine 03/08/24 Ashwin Ward MD [id number] [place] [address] Medical Oncologist/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
--- OUTSIDE RECORDS SUMMARY | 2025-01-05 15:42 | XMS_ITS | Clinical Summary ---
Author Organization [facility] Address [address] [place] [address] Care Team Providers Care Liquor Commissioner Name Role Phone Hubert Barros DO Primary Care Provider [phone] Allergies Active Allergy Reactions Criticality Noted Date Comments Seasonal Unknown 09/21/2008 Sinus problems Medications fluticasone propionate 50 MCG/ACT nasal spray 1 spray by Each Nostril route every 12 (twelve) hours. Active albuterol sulfate HFA 108 (90 Base) MCG/ACT inhaler Inhale 2 puffs into the lungs every 6 (six) hours as needed for Wheezing. Active levothyroxine 75 MCG tablet Take 75 mcg by mouth every morning. Active diphenhydrAMINE 25 MG capsule Take 25 mg by mouth every 6 (six) hours as needed for Itching. Active acetaminophen 500 MG tablet Take 500 mg by mouth every 6 (six) hours as needed. 2 PO - No other source of acetaminophen/ 4gm max per day Active magnesium hydroxide (MILK OF MAGNESIA) 400 MG/5ML suspension Take 30 mLs by mouth daily as needed for Constipation. Active magnesium-aluminum -simethicone (MYLANTA REGULAR STRENGTH) 200-200-20 MG/5ML suspension Take 60 mLs by mouth every 2 (two) hours as needed for Indigestion. Active furosemide (LASIX) 20 MG tablet Take 20 mg by mouth daily. Active loratadine (CLARITIN) 10 MG tablet Take 10 mg by mouth daily. Active melatonin 5 MG tablet Take 5 mg by mouth nightly at bedtime. Active polyethylene glycol (GLYCOLAX) packetIndications: Drug-induced constipation Take 240 mLs (17 g total) by mouth daily as needed. Dissolve powder in 240 mL water 30 each 11 07/02/20 Active melatonin 5 MG tabletIndications: Primary insomnia Take 1 tablet (5 mg total) by mouth nightly as needed (additional dose can be given before midnight). 30 tablet 11 07/02/20 Active liraglutide (VICTOZA) 18 MG/3ML injection Inject 1.8 mg into the skin daily. Active acetaminophen (TYLENOL) 325 MG tablet Take 325 mg by mouth every 4 (four) hours as needed for Pain. 2 tablets to equal 650mg Active HYDROcodone-acetam inophen (NORCO) 5-325 MG tabletIndications: Chronic Pain Take 1 tablet by mouth every 4 (four) hours. Indications: Chronic Pain 180 tablet 09/30/19 Active HOSPITAL BED, DME,Indications:Pr imary osteoarthritis involving multiple joints,Obstructive sleep apnea syndrome,Primary osteoarthritis of left hip 1 Device by Does not apply route daily. 1 Device 10/04/19 Active OZEMPIC 2 mg/dose injection (PEN) ADMINISTER 2 MG UNDER THE SKIN WEEKLY Active celecoxib (CELEBREX) 200 MG capsule Take 1 capsule (200 mg total) by mouth 2 (two) times daily. Active bisacodyl (DULCOLAX) [address] 10 mg rectally daily as needed for Constipation. 025 Discontin ued(Side effects) potassium chloride CR (KLOR-CON M) 10 MEQ tablet Take 10 mEq by mouth daily. 025 Discontin ued(Side effects) meloxicam (MOBIC) 7.5 MG tablet 01/15/20 025 Discontin ued(Alter alla therapy) Active Problems Problem Noted Date Diagnosed Date Dysuria 05/14/2022 Fluid retention in legs 12/17/2021 Osteopenia 12/17/2021 Morbid obesity 12/17/2021 Assessment & Plan (12/26/2024 6:16 PM CDT): We discussed the adverse effects of weight on osteoarthritis. For every 1 pound loss, 4 to 6 pounds of stress is relieved from the knee, slightly more at the ankle and slightly less at the hip. We discussed low carbohydrate diet to help with weight loss. 80% of weight loss is through diet. Osteoarthritis of both knees 11/22/2021 Shortness of breath 11/22/2021 Stage 3a chronic kidney disease 11/22/2021 Hyperlipidemia 11/22/2021 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 Hypothyroidism 11/22/2021 Low back pain 11/22/2021 Primary osteoarthritis of left hip 11/22/2021 Psoriasis 11/22/2021 Hypoxemia 11/22/2021 Morbid (severe) obesity due to excess calories 0 11/22/2021 Weakness 11/22/2021 Sleep apnea 11/22/2021 Arthritis 11/22/2021 Hyperglyceridemia 11/22/2021 Osteoarthritis 11/22/2021 Snoring 05/04/2018 Osteoarthritis of knees, bilateral 01/28/2018 Overview (12/17/2021): XR Assessment & Plan (12/26/2024 6:15 PM CDT): We discussed the risks, benefits, and alternatives. The only thing proven to slow the progression of osteoarthritis is weight loss. Every pound lost relieves 4 to 6 pounds of stress across the knee. We discussed unloading braces. Formal physical therapy to help with flexibility, mobility, and strength. We discussed TENS units. Nonsteroidal anti-inflammatories as well as Tylenol and pain medication and their side effects. We discussed steroid versus Visco supplement injection. We discussed eventual total knee arthroplasty. Failure of conservative treatment. Recommendation at this time, we discussed weight loss, therapy, bracing, anti-inflammatories, and steroids. She's tried multiple different anti-inflammatories. She's working on weight loss. She's on ozempic. The pain is interfering with her activities of daily living. She is wanting to proceed with more definitive treatment. All questions are answered. She'd like to get set up for total knee arthroplasty on 01/18/25 at [facility]. Osteoarthritis of left hip 01/28/2018 Overview (12/17/2021): XR First degree AV block 07/17/2017 Localized edema 07/17/2017 Morbid obesity with body mass index of 45.0-49.9 in adult 07/17/2017 Acquired hypothyroidism 07/17/2017 CANTOR (dyspnea on exertion) 07/17/2017 STU (obstructive sleep apnea) 07/17/2017 Chronic fatigue 07/17/2017 Vitamin D deficiency 09/07/2014 Overview (12/17/2021): Vitamin D <13 in 2014 Encounters Date Type Department Care Team Description 12/29/2024 Prep for Procedure [facility] [address] [address] Nilton Brunner DO 12/26/2024 11:40 AM CDT Office Visit [facility] [address] [address] Nilton Brunner DO Knee Pain (MANUEL Knee Pain) 12/26/2024 11:36 AM CDT - 12/26/2024 11:59 PM CDT Hospital Encounter [facility] [address] [place] [address] Nilton Brunner DO Discharge Disposition: Home or Self Care (Routine Discharge) 12/26/2024 10:15 AM CDT - 12/26/2024 11:35 AM CDT Hospital Encounter [facility] [address] [place] [address] Nilton Brunner DO Discharge Disposition: Home or Self Care (Routine Discharge) 12/26/2024 Travel 12/22/2024 Telephone [facility] [address] [address] Nilton Brunner DO Returned Call (Patient called and stated she is having her image report faxed to us I did let the patient know that we would need a imaging disk so Dr. Brunner can look at the images, She stated she would contact the facillity and see if they can push the images to us.I stressed again to the patient that we need a disk with her images or we could do new images before her appointment. Pt. Voiced understanding.) 12/22/2024 Orders Only [facility] [place] [address] [place], [place] [id number] Nilton Brunner DO from Last 3 Months Immunizations Immunization Administration Dates Next Due Influenza (Generic) 06/04/2022 Influenza Adult (Generic) 09/16/2012 PFIZER COVID-19 (ORIGINAL FO RMULATION, PURPLE CAP) mRNA, LNP-S, PF, 30 MCG/0.3 ML DOSE 06/26/2022 Tdap (Generic) 05/04/2018 Family History Medical History Relation Comments Cancer Brother Lung COPD Father Stroke Mother Suspect because of medical test previous day Relation Status Comments Brother Alive Father Alive Mother Alive Social History Tobacco Use Types Packs/Day Years Used Date Smoking Tobacco: Never Smokeless Tobacco: Never Tobacco Cessation:Counseling Given: No Alcohol Use Standard Drinks/Week Comments Not Currently 0 (1 standard drink = 0.6 oz pur e alcohol) No alcohol recent years PHQ-2 Answer Date Recorded Patient Health Questionnaire-2 Score 0 12/26/2024 Comments Unknown Sex and Gender Information Value Date Recorded Sex Assigned at Female 12/26/2024 10:50 AM CDT Legal Sex Female 10:53 AM CDT Gender Identity Female 12/23/2024 10:07 AM CDT Sexual Orientation Straight 12/23/2024 10 :07 AM CDT Last Filed Vital Signs Vital Sign Reading Time Taken Comments Blood Pressure 110/60 12/26/2024 10:50 AM CDT Pulse 99 12/26/2024 10:50 AM CDT Temperature 37.5 C (99.5 F) 12/26/2024 10:50 AM CDT Respiratory Rate 20 09/12/2022 11:1 3 AM 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 [place] [address] [place] [address] [place] [address] 01/18/2025 1:35 PM CDT Anesthesia Event [facility] [place] [address] Meg Toro MD [address] [place] [id number] 01/18/2025 1:35 PM CDT - 01/18/2025 3:35 PM CDT [facility] [place] [place] [address] [place] [address] [place] [address] ARTHROPLASTY KNEE TOTAL 02/01/2025 3:00 PM CDT Office Visit [facility] [address] [place] [address] Mazin Stevenson, JOSE A [address] [place], [place] [id number] Scheduled Procedures Name Priority Associated Diagnoses Date/Ti me ARTHROPLASTY KNEE TOTAL First degree AV block Pure hyperglyceridemia Morbid (severe) obesity due to excess calories (CMS/HCC) Stage 3a chronic kidney disease (CMS/HCC) Primary osteoarthritis of both knees 01/18/2025 1:35 PM CDT Health Maintenance Due Date Last Done Comments Annual Medicare Wellness Visit 2007 Dexa Scan (General) 2007 COVID-19 Vaccine ( season) 2024 06/15/2024, 12/10/2023, 07/15/2023, Additional history exists DTaP, Tdap and Td Vaccines (3 - Td or Tdap) 04/29/2034 04/29/2024, 05/04/2018 RSV Immunization or 60+ Years Completed 07/15/2023 Pneumococcal Vaccine: 50+ Years Completed 04/29/2024 Zoster Vaccines Completed 07/26/2024, 04/29/2024 PHQ-2 (Physician [place]) Completed 12/26/2024 Meningococcal B Vaccine Aged Out No l onger eligible based on patient's age to complete this topic Meningococcal Vaccine Aged Out No belen shabbir eligible based on patient's age to complete this topic RSV Immunizations Under 20 Months Aged Out No longer eligible based on patient's age to complete this topic Goals Goal Patient Goal Type Associated Problems Recent Progress Patient-Stated? Author Autogenerat ed Goal Care Plan Autogenerated Problem No Nilton Brunner, Procedures Procedure Name Priority Date/Time Associated Diagnosis Comments ECG 12-LEAD Routine 12/26/2024 11:47 AM CDT Morbid obesity (CMS/HCC) Primary osteoarthritis of both knees First degree AV block XR KNEE LT MIN 4V Routine 12/26/2024 10: 42 AM CDT Bilateral chronic knee pain XR KNEE RT MIN 4V Routine 12/26/2024 10: 42 AM CDT Bilateral chronic knee pain from Last 3 Months Results * ECG 12 lead (HOSPITAL PERFORMED) (12/26/2024 11:47 AM CDT) 12/26/2024 11:4 7 AM CDT Narrative [facility] - 12/27/2024 6:27 PM CDT [facility] Test Date: 2024-12-26 Pat Name: JOSE RAMON PORFIRIO Department: 85 Room: Gender: Female Executive Advisor: : 1940 Requested By: NILTON BRUNNER Order Number: [id number] Reading : Omero Calvert Measurements Intervals [place] Rate: 98 P: 52 HI: 194 QRS: 12 QRSD: 89 T: 57 QT: 341 QTc: 436 Interpretive Statements SINUS RHYTHM No previous ECG available for comparison Procedure Note Omero Calvert MD - 12/27/2024 [facility] Test Date: 2024-12-26 Pat Name: JOSE RAMON BHATIA Department: 85 Room: Gender: Female Executive Advisor: : 1940 Requested By: NILTON BRUNNER Order Number: [id number] Reading MD: Omero Calvert Measurements Intervals [place] Rate: 98 P: 52 HI: 194 QRS: 12 QRSD: 89 T: 57 QT: 341 QTc: 436 Interpretive Statements SINUS RHYTHM No previous ECG available for comparison Nilton Brunner DO ECG ORDERABLES Final Result [facility] RAD * XR KNEE RT MIN 4V (12/26/2024 10:42 AM CDT) Anatomical Region Laterality Modality Knee Radiographic Sylvia ging 12/26/2024 3:44 PM CDT Impressions 12/26/2024 3:45 PM CDT IMPRESSION: 1. No acute findings. Degenerative changes as above. Small joint effusion Ordered By: NILTON BRUNNER Interpreted By: Marcus Paredes, 12/26/2024 3:44 PM Narrative 12/26/2024 3:45 PM CDT [facility] [address] [place] [address] IMAGING STUDIES: XR KNEE RT MIN 4V DATE: 12/26/2024 10:15 AM COMPARISON: No comparisons. CLINICAL HISTORY: chronic right knee pain . FINDINGS: There is no evidence of acute fracture, dislocation, or osseous erosion. Osteopenia limits exam. No radiopaque foreign bodies or abnormal soft tissue calcifications noted. Moderate patellofemoral degenerative change. Small suprapatellar joint effusion. Total loss of medial joint space with sclerosis and moderate osteophyte. Mild tibial spine spurring. Lateral joint space is fairly well-maintained with mild osteophyte.. Procedure Note Jian Paredes MD - 12/26/2024 [facility] [address] [facility] [place] [address] IMAGING STUDIES: XR KNEE RT MIN 4V DATE: 12/26/2024 10:15 AM COMPARISON: No comparisons. CLINICAL HISTORY: chronic right knee pain . FINDINGS: There is no evidence of acute fracture, dislocation, or osseous erosion.Osteopenia limits exam. No radiopaque foreign bodies or abnormal soft tissue calcificationsnoted. Moderate patellofemoral degenerative change. Small suprapatellar jointeffusion. Total loss of medial joint space with sclerosis and moderate osteophyte.Mild tibial spine spurring. Lateral joint space is fairly well-maintainedwith mild osteophyte.. IMPRESSION: 1. No acute findings. Degenerative changes as above. Small jointeffusion Ordered By: NILTON BRUNNER Interpreted By: Marcus Paredes, 12/26/2024 3:44 PM Nilton Brunner DO GENERAL IMAGING Final Result * XR KNEE LT MIN 4V (12/26/2024 10:42 AM CDT) Anatomical Region Laterality Modality Knee Radiographic Sylvia ging 12/26/2024 3:45 PM CDT Impressions 12/26/2024 3:47 PM CDT IMPRESSION: 1. No acute findings . Degenerative changes as above. Small joint effusion Ordered By: NILTON BRUNNER Interpreted By: Marcus Paredes, 12/26/2024 3:45 PM Narrative 12/26/2024 3:47 PM CDT [facility] [address] [place] [phone] IMAGING STUDIES: XR KNEE LT MIN 4V DATE: 12/26/2024 10:15 AM COMPARISON: No comparisons. CLINICAL HISTORY: chronic left knee pain . FINDINGS: There is no evidence of acute fracture, dislocation, or osseous erosion. Osteopenia limits exam. Total loss of medial joint space with [id number] appearance with sclerosis and moderate osteophyte. Mild tibial spine spurring. Lateral joint space is well-maintained with mild osteophyte. No radiopaque foreign bodies or abnormal soft tissue calcifications noted. Mild chondrocalcinosis. Patella is intact. Minimal patellar spur. Small suprapatellar joint effusion. Procedure Note Jian Paredes MD - 12/26/2024 [facility] [address] [place] [phone] IMAGING STUDIES: XR KNEE LT MIN 4V DATE: 12/26/2024 10:15 AM COMPARISON: No comparisons. CLINICAL HISTORY: chronic left knee pain . FINDINGS: There is no evidence of acute fracture, dislocation, or osseous erosion.Osteopenia limits exam. Total loss of medial joint space with [id number] appearance withsclerosis and moderate osteophyte. Mild tibial spine spurring. Lateral joint space is well-maintained with mild osteophyte. No radiopaque foreign bodies or abnormal soft tissue calcifications noted.Mild chondrocalcinosis. Patella is intact. Minimal patellar spur. Small suprapatellar jointeffusion. IMPRESSION: 1. No acute findings . Degenerative changes as above. Small joint effusion Ordered By: NILTON BRUNNER Interpreted By: Marcus Paredes, 12/26/2024 3:45 PM Nilton Brunner DO GENERAL IMAGING Final Result from Last 3 Months Additional Health Concerns Active Problems Noted Date Diagnosed Date Autogenerated Problem 12/29/2024 Insurance [employer] Advance Directives * Full Code (Latest Code Status on File) Date Activated Date Inactivated Comments 11/22/2021 1:53 PM Care Teams Liquor Commissioner Relationship Specialty Start Date End Date Hubert Barros DO [address] [place] [id number] PCP - General 12/23/24
--- OUTSIDE RECORDS SUMMARY | 2025-01-05 15:42 | XMS_ITS | Clinical Summary ---
Author Organization [facility] Address [address] [place] [address] Care Team Providers Care Ignition Mechanic Name Role Phone Omero Medrano Primary Care Provider [phone] Source Comments [facility],non-owned Affiliates and Associated Physician Practices is amultiple site organization consisting of ambulatory clinics and hospital sitesin [place], [place], [place] and [place]. This disclosure is being madepursuant to the Care Everywhere program and may not contain all information available regarding this patient. Last updated 18.[facility] Allergies No known active allergies Medications * Be aware that medications may not be up to date on this document. Alwaysverify current medications with the patient. ARMOUR THYROID 60 MG tablet TK 1 T PO QD 01/24/20 18 Active levothyroxine (SYNTHROID) 150 MCG tablet Take 150 mcg by mouth once daily 01/24/20 18 Active furosemide (LASIX) 40 MG tablet Take 80 mg by mouth once daily Active cetirizine (ZYRTEC) 10 MG tablet Take 10 mg by mouth once daily Active CALCIUM PO Take 1,200 mg by mouth once daily 08/18/20 15 Active traMADol (ULTRAM) 50 MG tablet 1 tablet every 6 hours as needed for Pain 90 tablet 01/29/20 18 Active Additional Information Patient not taking.Reported on 01/09/2022 ibuprofen (MOTRIN) 600 MG tablet Take 1 tablet by mouth every 6 hours as needed for Pain 50 tablet 02/19/20 18 Active meloxicam (MOBIC) 15 MG tabletIndications: Osteoarthritis of left hip, unspecified osteoarthritis type,Osteoarthriti s of both knees, unspecified osteoarthritis type Take 1 tablet by mouth once daily 30 tablet 5 05/04/20 18 Active alendronate (FOSAMAX) 70 MG tabletIndications: Osteoporosis Take 1 tablet by mouth every 7 days before meal Take with full glass of water; stay upright for 30 minutes after Reasons: Osteoporosis 5 tablet 11 06/01/20 18 Active VENTOLIN HFA 108 (90 Base) MCG/ACT inhaler Inhale 2 puffs by mouth as needed 11/05/19 20 Active triamcinolone acetonide (KENALOG) 0.1 % cream Apply 1 applicator to affected area as needed 12/19/19 21 Active VICTOZA 18 MG/3ML pen 12/29/19 22 Active fluticasone propionate (FLONASE) 50 MCG/ACT nasal spray 01/02/20 22 Active Active Problems Problem Noted Date Diagnosed Date Snoring 05/04/2018 Osteoarthritis of left hip 01/28/2018 Overview (05/04/2018): XR Osteoarthritis of knees, bilateral 01/28/2018 Overview (05/04/2018): XR Vitamin D deficiency 09/07/2014 Overview (05/04/2018): Vitamin D <13 in 2014 STU (obstructive sleep apnea) Morbid obesity Hypothyroidism Fluid retention in legs Osteopenia Resolved Problems Problem Noted Date Diagnosed Date Resolved Date Establishing care with deangelo whitlock, encounter for 05/05/2018 05/05/2018 Acquired hypothyroidism 07/17/201704/08 Chronic fatigue 07/17/2017 05/04/2018 CANTOR (dyspnea on exertion) 07/17/2017 First degree AV block 07/17/20172017 Localized edema 07/17/2017 05/04/2018 Morbid obesity with BMI of 45.0-49.9, adult 07/17/2017 05/04/2018 STU (obstructive sleep apnea) 07/17/2017 05/04/2018 Knee pain, left 10/16/2015 05/04/2018 Closed fracture of left tibi a with routine healing 08/17/2015 05/04/2018 Essential hypertension 08/17/201505/04 Borderline diabetes mellitus 09/21/2008 05/04/2018 HTN (hypertension), benign 09/21/2008 0 05/04/2018 Overview (01/28/2018): Overview: Per patient report: She says she does not have but she is being treated for it Hypothyroidism 09/21/2008 05/04/2018 Neck pain 09/21/2008 05/04/2018 Obesity 09/21/2008 05/04/2018 Osteopenia 09/21/2008 05/04/2018 Hypertension 05/05/2018 Immunizations Immunization Administration Dates Next Due TDAP (7yrs+) 05/04/2018 Family History Medical History Relation Name Comments Cancer - Liver Brother COPD - Chronic Obstructive Pulmonary Disease Father CVA Father CVA Mother Other - Hematologic Mother clotting disorder Thyroid Disease Mother hypothyroid CAD (Coronary Artery Disease) Sister heart valve replacement Thyroid Disease Son hypothyroid Relation Name Status Comments Brother Father (Age 92) Maternal Grandfather Maternal Grandmother Mother (Age 92) Paternal Grandfather Paternal Grandmother Sister Son Alive Social History Tobacco Use Types Packs/Day Years Used Date Smoking Tobacco: Never Smokeless Tobacco: Never Comments No Sex and Gender Information Value Date Recorded Sex Assigned at Not on file Legal Sex Female 1:52 PM SHOE DRESSER Gender Identity Not on file Sexual Orientation Not on file Last Filed Vital Signs Vital Sign Reading Time Taken Comments Blood Pressure 120/70 01/09/2022 3:25 PM CDT Pulse 76 01/09/2022 3:25 PM CDT Temperature 36.4 C (97.5 F) 11/28/2021 1:04 PM CDT Respiratory Rate 20 01/09/2022 3:25 PM CDT Oxygen Saturation 96% 01/09/2022 3:25 PM CDT Inhaled Oxygen Concentration - - Weight 115.7 kg (255 lb) 01/09/2022 3:25 PM CDT Height 149.9 cm (4' 11 ) 11/28/2021 1:04 PM CDT Body Mass Index 51.5 11/28/2021 1:04 PM CDT Plan of Treatment Health Maintenance Due Date Last Done Comments PNEUMOCOCCAL VACCINE 50+ (1 of 1 - PCV) 1992 ZOSTER VACCINE (1 of 2) 1992 Respiratory Syncytial Virus (RSV) Vaccine Pt: or over 60 yrs (1 - 1-dose 75+ series) 2017 COVID-19 VACCINE (1 - 2023-2 5 season) 2024 DEPRESSION SCREENING 09/07/2024 INFLUENZA VACCINE (Season Ended) 2025 09/16/2012 DTAP/TDAP/TD VACCINES (2 - T d or Tdap) 05/04/2028 05/04/2018 BONE DENSITY TESTING Completed 06/22/2017 (Done Outside Per Report) HEPATITIS B VACCINE Aged Out No longe r eligible based on patient's age to complete this topic HIB VACCINE Aged Out No longer eligi ble based on patient's age to complete this topic HPV VACCINE Aged Out No longer eligi ble based on patient's age to complete this topic MENINGOCOCCAL (Group B) VACCINE SHARED DECISION-MAKING Aged Out No longer eligible based on patient's age to complete this topic MENINGOCOCCAL GROUPS A/C/Y/W VACCINE Aged Out No longer eligible based on patient's age to complete this topic Insurance AETNA MEDICAID - OUT OF STATE AETNA Care Teams Ignition Mechanic Relationship Specialty Start Date End Date Omero Medrano DO PCP - General 04/14/22
[2025-01-06 07:44] LABS: Rubeola Measles IgG >300.00 AU/mL
== END 2025-01-05 15:24 | disposition home or self-care (01) ==
LOC: ANHGOSHLAB 15:24
PROVIDERS: PCP Internal Medicine; Visit Provider Student in an Organized Health Care Education/Training Program
DX: Z01.84 Encounter for antibody response examination (principal)
CPT/HCPCS: 36415; 86765

== ENCOUNTER 2025-03-16 15:19 | Outpatient (CLI) | payer MEDICARE, SELFPAY ==
--- OUTSIDE RECORDS SUMMARY | 2025-03-16 15:23 | XMS_ITS | Clinical Summary ---
Author Organization [facility] Address [address] [place] [address] Phone Care Team Providers Care Jinriksha Driver Name Role Phone Unavailable Primary Care Provider [...]
--- OUTSIDE RECORDS SUMMARY | 2025-03-16 15:23 | XMS_ITS | Clinical Summary ---
Author Organization Unknown Care Team Providers Care Damper Worker Name Role Phone RANI WESTBROOK Unavailable Unavailable CYNDY PHYSICAL THERAPIST, ANGI Unavailabl e Unavailable PETR LINSEED OIL ORDER FILLER, MATHEW Unavail able Unavailable Payers Payer Name Policy Type Policy Number Effective Date Expira tion Date AETNA MEDICARE ADVANTAGE - EPISODIC Problems Condition Name Condition Details Condition Category Status Onset Date Resolution Date Last Treatment Date Treating Clinician Comments AFTERCARE FOLLOWING JOINT REPLACEMENT SURGERY Active 09-07 00:00: 00 PRESENCE OF LEFT ARTIFICIAL KNEE JOINT Active 09-07 00:00: 00 UNILATERAL PRIMARY OSTEOARTHRIT IS, RIGHT KNEE Active 421 00:00: 00 ATRIOVENTRIC ULAR BLOCK, FIRST DEGREE Active 09-07 00:00: 00 CHRONIC KIDNEY DISEASE, STAGE 3A Active 09-07 00:00: 00 HYPOTHYROIDI SM, UNSPECIFIED Active 09-07 00:00: 00 HYPERLIPIDEM IA, UNSPECIFIED Active 09-07 00:00: 00 OBSTRUCTIVE SLEEP APNEA (ADULT) (PEDIATRIC) Active 09-07 00:00: 00 OTH DISRD OF BONE DENSITY AND STRUCTURE, UNSPECIFIED SITE Active 09-07 00:00: 00 MORBID (SEVERE) OBESITY DUE TO EXCESS CALORIES Active 09-07 00:00: 00 BODY MASS INDEX [BMI]40.0-44 .9, ADULT Active 09-07 00:00: 00 PRESENCE OF LEFT ARTIFICIAL HIP JOINT Active 09-07 00:00: 00 ACQUIRED ABSENCE OF BOTH CERVIX AND UTERUS Active 09-07 00:00: 00 ACQUIRED ABSENCE OF KIDNEY Active 09-07 00:00: 00 RETIREMENT (CURRENT) USE OF ANTICOAGULAN TS Active 09-07 00:00: 00 HORMONE REPLACEMENT THERAPY Active 09-07 00:00: 00 LNG TRM (CRNT) USE INJECTABLE NON-INSULIN ANTIDIABETIC DRUGS Active 09-07 00:00: 00 RETIREMENT (CURRENT) USE OF INHALED STEROIDS Active 09-07 00:00: 00 Allergies, Adverse Reactions, Alerts Allergy Name Allergy Type Status Severity Reaction(s) Onset Date Inactive Date Treating Clinician Comments GRASS POLL-ERINN NNIAL RYE,STD Propensity to adverse reactions Active 2025-01 09:02:2 6 Medications Ordered Medication Name Filled Medication Name Start Date Stop Date Current Medication? Ordering Clinician Indication Dosage Frequency Signature (SIG) Comments Components albuterol sulfate HFA 90 mcg/actuati on aerosol inhaler 01-20 00:00: 00 Yes [id number] WHEEZING 2 puff EVERY 6 HOURS 2 puff EVERY 6 HOURS (route: inhalation ) Med Classific ation: Respirato ry Therapy Agents aluminum-ma g hydroxide-s imethicone 200 mg-200 mg-20 mg/5 mL oral susp 01-20 00:00: 00 Yes [id number] INDIGESTION 30 mL EVERY 2 HOURS 30 mL EVERY 2 HOURS (route: oral) Med Classific ation: Gastroint estinal Therapy Agents Benadryl 25 mg capsule 01-20 00:00: 00 Yes [id number] ITCHING 1 capsule EVERY 6 HOURS 1 capsule EVERY 6 HOURS (route: oral) Med Classific ation: Respirato ry Therapy Agents docusate sodium 100 mg capsule 01-20 00:00: 00 Yes [id number] CONSTIPATIO N 1 capsule 3 TIMES DAILY 1 capsule 3 TIMES DAILY (route: oral) Med Classific ation: Gastroint estinal Therapy Agents Eliquis 2.5 mg tablet 01-20 00:00: 00 02-08 23:59 :00 No [id number] PREVENT BLOOD CLOTS 1 tablet TWICE DAILY 1 tablet TWICE DAILY (route: oral) Med Classific ation: Hematolog ical Agents Flonase Allergy Relief 50 mcg/actuati on nasal spray,suspe nsion 01-20 00:00: 00 Yes [id number] CONGESTION 1 spray TWICE DAILY 1 spray TWICE DAILY (route: nasal) Alternate Route: NOSTRIL - BOTH. Med Classific ation: Respirato ry Therapy Agents furosemide 40 mg tablet 01-20 00:00: 00 Yes [id number] FLUID RETENTION 2 tablet ONCE DAILY 2 tablet ONCE DAILY (route: oral) Med Classific ation: Cardiovas cular Therapy Agents hydrocodone 5 mg-acetamin ophen 325 mg tablet 01-20 00:00: 00 01-27 23:59 :00 No [id number] LEFT KNEE PAIN 1-2 tablet EVERY 4 HOURS 1-2 tablet EVERY 4 HOURS (route: oral) Med Classific ation: Analgesic , Anti-infl ammatory or Antipyret ic hydrocodone 5 mg-acetamin ophen 325 mg tablet 01-27 00:00: 00 Yes [id number] LEFT KNEE PAIN 1 tablet 3 TIMES DAILY 1 tablet 3 TIMES DAILY (route: oral) Med Classific ation: Analgesic , Anti-infl ammatory or Antipyret ic levothyroxi ne 100 mcg capsule 01-20 00:00: 00 Yes [id number] HYPOTHYROID ISM 1 capsule ONCE DAILY 1 capsule ONCE DAILY (route: oral) Med Classific ation: Endocrine melatonin 5 mg capsule 01-20 00:00: 00 Yes [id number] SLEEP 1-2 capsule AT BEDTIME 1-2 capsule AT BEDTIME (route: oral) Med Classific ation: Central Nervous System Agents metaxalone 800 mg tablet 01-18 00:00: 00 Yes [id number] MUSCLE SPASMS 1 tablet EVERY 8 HOURS 1 tablet EVERY 8 HOURS (route: oral) Med Classific ation: Locomotor System Miralax 17 gram/dose oral powder 01-20 00:00: 00 Yes [id number] CONSTIPATIO N 17 gram ONCE DAILY 17 gram ONCE DAILY (route: oral) Med Classific ation: Gastroint estinal Therapy Agents Ozempic 2 mg/dose (8 mg/3 mL) subcutaneou s pen injector 01-20 00:00: 00 Yes [id number] WEIGHT LOSS 2 mg WEEKLY 2 mg WEEKLY (route: subcutaneo us) Med Classific ation: Endocrine Immunizations Ordered Immunization Name Filled Immunization Name Date Status Comments Refusal Reason INFLUENZA NOT GIVEN - NOT FLU SEASON, TIV (INACTIVATED) 2025-01-21 00:00:00 PNEUMOCOCCAL (PPV), PPV 2022-07-21 00:00:00 Vital Signs Vital Name Observation Time Observation Value Commen ts Temperature 2025-03-15 12:24:00.000 97.7 [degF] Temperature 2025-03-08 12:44:00.000 97.8 [degF] Temperature 2025-03-03 11:55:00.000 97.9 [degF] Temperature 2025-02-22 14:56:00.000 97.5 [degF] Temperature 2025-02-15 15:57:00.000 98.3 [degF] Temperature 2025-02-09 10:44:00.000 98.2 [degF] Temperature 2025-02-07 14:35:00.000 97.7 [degF] Temperature 2025-02-02 14:05:00.000 97.4 [degF] Temperature 2025-02-02 10:26:00.000 97.3 [degF] Temperature 2025-01-31 12:48:00.000 97.9 [degF] Temperature 2025-01-25 12:14:00.000 97.4 [degF] Temperature 2025-01-24 10:41:00.000 97.9 [degF] Temperature 2025-01-22 11:28:00.000 97.7 [degF] Temperature 2025-01-21 12:06:00.000 97.3 [degF] BMI (%) 2025-01-21 12:06:00.000 40 kg/m2 Height 2025-01-21 12:06:00.000 59 [in_us] Pulse 2025-03-15 12:24:00.000 83 /min Pulse 2025-03-08 12:44:00.000 84 /min Pulse 2025-03-03 11:55:00.000 84 /min Pulse 2025-02-22 14:56:00.000 72 /min Pulse 2025-02-15 15:57:00.000 72 /min Pulse 2025-02-09 10:44:00.000 72 /min Pulse 2025-02-07 14:35:00.000 84 /min Pulse 2025-02-02 14:05:00.000 72 /min Pulse 2025-02-02 10:26:00.000 74 /min Pulse 2025-01-31 12:48:00.000 72 /min Pulse 2025-01-25 12:14:00.000 100 /min Pulse 2025-01-24 10:41:00.000 92 /min Pulse 2025-01-22 11:28:00.000 91 /min Pulse 2025-01-21 12:06:00.000 75 /min O2 Saturation (%) 2025-03-15 12:24:00.000 97 % O2 Saturation (%) 2025-03-08 12:44:00.000 97 % O2 Saturation (%) 2025-03-03 11:55:00.000 96 % O2 Saturation (%) 2025-02-22 14:56:00.000 98 % O2 Saturation (%) 2025-02-15 15:57:00.000 93 % O2 Saturation (%) 2025-02-09 10:44:00.000 97 % O2 Saturation (%) 2025-02-07 14:35:00.000 98 % O2 Saturation (%) 2025-02-02 14:05:00.000 97 % O2 Saturation (%) 2025-02-02 10:26:00.000 97 % O2 Saturation (%) 2025-01-31 12:48:00.000 98 % O2 Saturation (%) 2025-01-25 12:14:00.000 95 % O2 Saturation (%) 2025-01-24 10:41:00.000 93 % O2 Saturation (%) 2025-01-22 11:28:00.000 92 % O2 Saturation (%) 2025-01-21 12:06:00.000 96 % Respirations 2025-03-15 12:24:00.000 17 /min Respirations 2025-03-08 12:44:00.000 18 /min Respirations 2025-03-03 11:55:00.000 19 /min Respirations 2025-02-22 14:56:00.000 20 /min Respirations 2025-02-15 15:57:00.000 18 /min Respirations 2025-02-09 10:44:00.000 20 /min Respirations 2025-02-07 14:35:00.000 20 /min Respirations 2025-02-02 14:05:00.000 18 /min Respirations 2025-02-02 10:26:00.000 20 /min Respirations 2025-01-31 12:48:00.000 19 /min Respirations 2025-01-25 12:14:00.000 18 /min Respirations 2025-01-24 10:41:00.000 17 /min Respirations 2025-01-22 11:28:00.000 16 /min Respirations 2025-01-21 12:06:00.000 18 /min Weight (lbs) 2025-01-21 12:06:00.000 199.8 [lb_av] Systolic Blood Pressure 2025-03-15 12:24:00.000 128 mm [Hg] Systolic Blood Pressure 2025-03-08 12:44:00.000 118 mm [Hg] Systolic Blood Pressure 2025-03-03 11:55:00.000 116 mm [Hg] Systolic Blood Pressure 2025-02-22 14:56:00.000 118 mm [Hg] Systolic Blood Pressure 2025-02-15 15:57:00.000 122 mm [Hg] Systolic Blood Pressure 2025-02-09 10:44:00.000 116 mm [Hg] Systolic Blood Pressure 2025-02-07 14:35:00.000 110 mm [Hg] Systolic Blood Pressure 2025-02-02 14:05:00.000 114 mm [Hg] Systolic Blood Pressure 2025-02-02 10:26:00.000 112 mm [Hg] Systolic Blood Pressure 2025-01-31 12:48:00.000 118 mm [Hg] Systolic Blood Pressure 2025-01-25 12:14:00.000 134 mm [Hg] Systolic Blood Pressure 2025-01-24 10:41:00.000 136 mm [Hg] Systolic Blood Pressure 2025-01-22 11:28:00.000 118 mm [Hg] Systolic Blood Pressure 2025-01-21 12:06:00.000 122 mm [Hg] Diastolic Blood Pressure 2025-03-15 12:24:00.000 74 mm [Hg] Diastolic Blood Pressure 2025-03-08 12:44:00.000 76 mm [Hg] Diastolic Blood Pressure 2025-03-03 11:55:00.000 60 mm [Hg] Diastolic Blood Pressure 2025-02-22 14:56:00.000 64 mm [Hg] Diastolic Blood Pressure 2025-02-15 15:57:00.000 80 mm [Hg] Diastolic Blood Pressure 2025-02-09 10:44:00.000 78 mm [Hg] Diastolic Blood Pressure 2025-02-07 14:35:00.000 66 mm [Hg] Diastolic Blood Pressure 2025-02-02 14:05:00.000 68 mm [Hg] Diastolic Blood Pressure 2025-02-02 10:26:00.000 60 mm [Hg] Diastolic Blood Pressure 2025-01-31 12:48:00.000 64 mm [Hg] Diastolic Blood Pressure 2025-01-25 12:14:00.000 72 mm [Hg] Diastolic Blood Pressure 2025-01-24 10:41:00.000 80 mm [Hg] Diastolic Blood Pressure 2025-01-22 11:28:00.000 64 mm [Hg] Diastolic Blood Pressure 2025-01-21 12:06:00.000 72 mm [Hg] Plan of Treatment Planned Activity Planned Date Details Comments Future Scheduled Test SKILLED NU RSE/THERAPY TO ADMINISTER AND INSTRUCT PATIENT/CAREGIVER ON SURGICAL INCISION CARE TO LEFT KNEE INCISION. PER CLEAN/ASEPTIC TECHNIQUE. NONREMOVABLE DRESSING TO BE LEFT IN PLACE UNTIL 01/25/25. AFTER REMOVAL, LEAVE PRINEO WOUND CLOSURE IN PLACE UNTIL 02/08/25. THEN LEAVE OPEN TO AIR AND MONITOR FOR S/S INFECTION. WOUND CARE TO BE PERFORMED EVERY DAY AND PRN FOR SOILAGE OR DISLODGEMENT. DISCONTINUE WOUND CARE, ASSESSMENT AND SUPPLIES WHEN WOUND HEALS. PATIENT/CAREGIVER TO PERFORM WOUND CARE IN AGENCY ABSENCE AFTER APPROPRIATE RETURN DEMONSTRATION. DISCONTINUE WOUND CARE, ASSESSMENT, AND SUPPLIES WHEN WOUND HEALS. PATIENT/CAREGIVER TO PERFORM WOUND CARE IN AGENCY ABSENCE AFTER APPROPRIATE RETURN DEMONSTRATION. [code = SKILLED NURSE/THERAPY TO ADMINISTER AND INSTRUCT PATIENT/CAREGIVER ON SURGICAL INCISION CARE TO LEFT KNEE INCISION. PER CLEAN/ASEPTIC TECHNIQUE. NONREMOVABLE DRESSING TO BE LEFT IN PLACE UNTIL 01/25/25. AFTER REMOVAL, LEAVE PRINEO WOUND CLOSURE IN PLACE UNTIL 02/08/25. THEN LEAVE OPEN TO AIR AND MONITOR FOR S/S INFECTION. WOUND CARE TO BE PERFORMED EVERY DAY AND PRN FOR SOILAGE OR DISLODGEMENT. DISCONTINUE WOUND CARE, ASSESSMENT AND SUPPLIES WHEN WOUND HEALS. PATIENT/CAREGIVER TO PERFORM WOUND CARE IN AGENCY ABSENCE AFTER APPROPRIATE RETURN DEMONSTRATION. DISCONTINUE WOUND CARE, ASSESSMENT, AND SUPPLIES WHEN WOUND HEALS. PATIENT/CAREGIVER TO PERFORM WOUND CARE IN AGENCY ABSENCE AFTER APPROPRIATE RETURN DEMONSTRATION.] Future Scheduled Test HOME HEALT H NURSE WILL INSTRUCT THE PATIENT/CAREGIVER ON POST OP JOINT REPLACEMENT MANAGEMENT INCLUDING TAKING TEMPERATURES DAILY, USE OF A SYMPTOM LOG, ELEVATING LOWER EXTREMITIES, ACTIVITY LIMITATIONS, AND SYMPTOMS TO CALL THE AGENCY OR SURGEON. [code = HOME HEALTH NURSE WILL INSTRUCT THE PATIENT/CAREGIVER ON POST OP JOINT REPLACEMENT MANAGEMENT INCLUDING TAKING TEMPERATURES DAILY, USE OF A SYMPTOM LOG, ELEVATING LOWER EXTREMITIES, ACTIVITY LIMITATIONS, AND SYMPTOMS TO CALL THE AGENCY OR SURGEON.] Future Scheduled Test HOME HEALT H NURSE WILL ADMINISTER SUBCUTANEOUS INJECTION OF OZEMPIC 2MG/DOSE (8 MG/3 ML) SUBCUTANEOUS PEN INJECTOR 2 MG WEEKLY. PATIENT/CAREGIVER INSTRUCTION ON MEDICATION PURPOSE, SIDE EFFECTS, SIGNS/SYMPTOMS TO REPORT, AND STEPS TO SELF-ADMINISTER INJECTIONS. PATIENT/CAREGIVER MAY SELF-ADMINISTER INJECTION ONCE ABLE TO RETURN DEMONSTRATE ALL STEPS INDEPENDENTLY. [code = HOME HEALTH NURSE WILL ADMINISTER SUBCUTANEOUS INJECTION OF OZEMPIC 2MG/DOSE (8 MG/3 ML) SUBCUTANEOUS PEN INJECTOR 2 MG WEEKLY. PATIENT/CAREGIVER INSTRUCTION ON MEDICATION PURPOSE, SIDE EFFECTS, SIGNS/SYMPTOMS TO REPORT, AND STEPS TO SELF-ADMINISTER INJECTIONS. PATIENT/CAREGIVER MAY SELF-ADMINISTER INJECTION ONCE ABLE TO RETURN DEMONSTRATE ALL STEPS INDEPENDENTLY.] Future Scheduled Test HOME HEALT H NURSE WILL ASSESS FOR COMPLICATIONS RELATED TO ANTICOAGULATION USE AND INSTRUCT PATIENT/CAREGIVER ABOUT PRECAUTIONS TO FOLLOW AND SIGNS/SYMPTOMS TO REPORT. [code = HOME HEALTH NURSE WILL ASSESS FOR COMPLICATIONS RELATED TO ANTICOAGULATION USE AND INSTRUCT PATIENT/CAREGIVER ABOUT PRECAUTIONS TO FOLLOW AND SIGNS/SYMPTOMS TO REPORT.] Future Scheduled Test THE CER TIFYING PHYSICIAN, ASSOCIATED PHYSICIAN, NPP OR PA WITHIN THE SAME GROUP MAY APPROVE AND SIGN THE ORDER (ON ANY PAGE) ATTESTING THAT THE COMPREHENSIVE OUTCOME ASSESSMENTS, EVALUATIONS, AND HOME HEALTH CERTIFICATION PLANS SUPPORT HOMEBOUND STATUS. HOME HEALTH WEB-PORTAL DOCUMENTATION ACCESSED BY THE PHYSICIAN MUST BE INCORPORATED INTO THE MEDICAL RECORD TO CORROBORATE THE PHYSICIAN, NPP, OR PAS F2F ENCOUNTER TO SUPPORT ELIGIBILITY FOR HOME HEALTH SERVICES. [code = THE CERTIFYING PHYSICIAN, ASSOCIATED PHYSICIAN, NPP OR PA WITHIN THE SAME GROUP MAY APPROVE AND SIGN THE ORDER (ON ANY PAGE) ATTESTING THAT THE COMPREHENSIVE OUTCOME ASSESSMENTS, EVALUATIONS, AND HOME HEALTH CERTIFICATION PLANS SUPPORT HOMEBOUND STATUS. HOME HEALTH WEB-PORTAL DOCUMENTATION ACCESSED BY THE PHYSICIAN MUST BE INCORPORATED INTO THE MEDICAL RECORD TO CORROBORATE THE PHYSICIAN, NPP, OR PAS F2F ENCOUNTER TO SUPPORT ELIGIBILITY FOR HOME HEALTH SERVICES.] Future Scheduled Test EACH ORDER ED IN-HOME OR TELEHEALTH VISIT, THE SKILLED NURSE WILL CONDUCT A COMPREHENSIVE ASSESSMENT INCLUDING VITAL SIGNS, PAIN, SAFETY, MENTAL/COGNITIVE/PSYCHOSOCIAL STATUS, MED MANAGEMENT, NUTRITION, SKIN INTEGRITY, PRESSURE ULCER PREVENTION, AND PATIENT/CAREGIVER ABILITY TO SUPPORT ORDERED CARE. SKILLED NURSE WILL INSTRUCT ON DISEASE PROCESS, MED MGMT., FALL PREVENTION AND SAFETY, INFECTION CONTROL AND PREVENTION, WARNING SIGNS, ADDRESS RESULTS OUTSIDE OF ORDERED PARAMETERS LISTED ON CARE PLAN, AND COORDINATE DISCHARGE WITH THE TREATING PROVIDER. MAY ACCEPT ORDERS FROM THE FOLLOWING PROVIDER(S) WHO WILL BE CONSULTING ON THE CERTIFIED CARE PLAN: DR. RANI WESTBROOK, DR. BHARATH LINDO, AND ANYONE COVERING IN THEIR ABSENCE. [code = EACH ORDERED IN-HOME OR TELEHEALTH VISIT, THE SKILLED NURSE WILL CONDUCT A COMPREHENSIVE ASSESSMENT INCLUDING VITAL SIGNS, PAIN, SAFETY, MENTAL/COGNITIVE/PSYCHOSOCIAL STATUS, MED MANAGEMENT, NUTRITION, SKIN INTEGRITY, PRESSURE ULCER PREVENTION, AND PATIENT/CAREGIVER ABILITY TO SUPPORT ORDERED CARE. SKILLED NURSE WILL INSTRUCT ON DISEASE PROCESS, MED MGMT., FALL PREVENTION AND SAFETY, INFECTION CONTROL AND PREVENTION, WARNING SIGNS, ADDRESS RESULTS OUTSIDE OF ORDERED PARAMETERS LISTED ON CARE PLAN, AND COORDINATE DISCHARGE WITH THE TREATING PROVIDER. MAY ACCEPT ORDERS FROM THE FOLLOWING PROVIDER(S) WHO WILL BE CONSULTING ON THE CERTIFIED CARE PLAN: DR. RANI WESTBROOK, DR. BHARATH LINDO, AND ANYONE COVERING IN THEIR ABSENCE.] Future Scheduled Test PHYSICAL T HERAPIST TO EVALUATE AND TREAT [code = PHYSICAL THERAPIST TO EVALUATE AND TREAT] Goal Patient Goal - S OC 01/21/25: INCREASE FUNCTIONAL MOBILITY IN HOME. REMAIN FREE FROM FALLS, INFECTIONS, AND HOSPITALIZATIONS. Goal Provider Goal - PATIENT/CAREGIVER WILL DEMONSTRATE APPROPRIATE INCISIONAL CARE. INCISION / SUTURE LINE IMPROVE EVIDENCED BY DECREASE IN SIZE / DRAINAGE OF WOUND, NO SIGNS AND SYMPTOMS OF INFECTION, DECREASED PAIN, HEALING IS PROGRESSING BY EOE. Goal Provider Goal - PATIENT/CAREGIVER WILL DEMONSTRATE THE USE OF THE SYMPTOM LOG, VITAL SIGN LOGS, AND ADHERENCE TO ORDERED STRATEGIES THAT PREVENT BLOOD CLOTS, INFECTIONS, AND COMPLICATIONS BY THE END OF HOME HEALTH SERVICES. Goal Provider Goal - PATIENT/CAREGIVER WILL VERBALIZE UNDERSTANDING OF THE REASON FOR THE INJECTION, STEPS TO SELF-ADMINISTER, SIGNS/SYMPTOMS TO REPORT, AND WILL TOLERATE THE ADMINISTRATION PROCEDURE WITHOUT ANY INJURY OR INFECTION AT THE SITE. Goal Provider Goal - PATIENT/CAREGIVER WILL VERBALIZE UNDERSTANDING OF ANTICOAGULATION COMPLICATIONS TO REPORT AND PRECAUTIONS TO FOLLOW BY END OF HOME HEALTH SERVICES. Goal Provider Goal - A PLAN OF CARE WILL BE ESTABLISHED THAT MEETS ALL PATIENT'S PRISON NEEDS AND COUNTER SIGNED BY PHYSICIAN. Goal Provider Goal - PATIENT WILL BE FREE OF FALLS AND HOSPITALIZATIONS THROUGHOUT EPISODE OF CARE. PATIENT/CAREGIVER WILL UNDERSTAND AND ADHERE TO ORDERED DIET. PATIENT/CAREGIVER WILL INDEPENDENTLY MANAGE MEDICATIONS, UNDERSTAND ANY CHANGES, SIDE EFFECTS TO REPORT BY EOE. PATIENT WILL BE FREE OF INFECTION AND UNDERSTAND MEASURES OF PREVENTION. PATIENT/CAREGIVER WILL COLLABORATE WITH SKILLED NURSE TO DEVELOP POC AT SOC AND ON AN ONGOING BASIS UPDATES ARE NEEDED. UNDERSTAND PROGRESS MADE/DISCHARGE PLANNING. ADDITIONAL ORDERS WILL BE RECEIVED FROM ALTERNATE PHYSICIANS IN A TIMELY MANNER. Goal Provider Goal - Encounters Start Date/Time End Date/Time Encounter Type Admission Type Attending Clinicians Care Facility Care Department Encounter ID Discharge Date Discharge Status Discharge Condition Discharge Reason Percent Goals Met 2025-01-21 00:00:00 2025-03-21 00:00:00 Outpatient NEW ADMISSION ANGI [facility] [id number] 86.49
--- OUTSIDE RECORDS SUMMARY | 2025-03-16 15:23 | XMS_ITS | Continuity of Care Document ---
Author Organization Jonathan [facility] K[facility] - Main Address [address] [facility] [address] [place] [address] Insurance Providers Payer Plan Claims Address Claims Phone Policy Number Group Number Relation Employer Guarantor Name Guarantor Guarantor Address Guarantor Phone [employer] [address], [place] [address] tel:[phone] Self Annel Bhatia 1940 [address] [place] [address] [employer] [address], [place] [address] tel:[phone] Self Annel Bhatia 1940 [address] [place] [address] [employer] [address], [place] [address] [phone] Self Annel Bhatia 1940 [address] [place] [address] Problems Unknown Problems Results No Results Allergies, adverse reactions, alerts No known allergies and adverse reactions Medications No administered medications reported Vital Signs No vital signs reported Social History No smoking Hx information available
--- OUTSIDE RECORDS SUMMARY | 2025-03-16 15:23 | XMS_ITS | Clinical Summary ---
Author Organization Unknown Care Team Providers Care Neurosurgical Nurse Practitioner Name Role Phone RANI WESTBROOK Unavailable Unavailable CYNDY PHYSICAL THERAPIST, ANGI Unavailabl e Unavailable PETR SPINNER OPEN END, MATHEW Unavail able Unavailable Payers Payer Name [...] ABSENCE OF KIDNEY Active 09-07 00:00: 00 [facility]PC (CURRENT) USE OF ANTICOAGULAN TS Active 09-07 00:00: 00 HORMONE REPLACEMENT THERAPY Active 09-07 00:00: 00 LNG TRM (CRNT) USE INJECTABLE NON-INSULIN ANTIDIABETIC DRUGS Active 09-07 00:00: 00 [facility] (CURRENT) USE OF INHALED STEROIDS Active 09-07 [...] on aerosol inhaler 01-20 00:00: 00 Yes [id number] WHEEZING 2 puff EVERY 6 HOURS 2 puff EVERY 6 HOURS (route: inhalation ) Med Classific ation: Respirato ry Therapy Agents aluminum-ma g hydroxide-s imethicone 200 mg-200 mg-20 mg/5 mL oral susp 01-20 00:00: 00 Yes [id number] INDIGESTION 30 mL EVERY 2 HOURS 30 mL EVERY 2 HOURS (route: oral) Med Classific ation: Gastroint estinal Therapy Agents Benadryl 25 mg capsule 01-20 00:00: 00 Yes [id number] ITCHING 1 capsule EVERY 6 HOURS 1 capsule EVERY 6 HOURS (route: oral) Med Classific ation: Respirato ry Therapy Agents docusate sodium 100 mg capsule 01-20 00:00: 00 Yes [id number] CONSTIPATIO N 1 capsule 3 TIMES DAILY 1 capsule 3 TIMES DAILY (route: oral) Med Classific ation: Gastroint estinal Therapy Agents Eliquis 2.5 mg tablet 01-20 00:00: 00 02-08 23:59 :00 No [id number] PREVENT BLOOD CLOTS 1 tablet TWICE DAILY 1 tablet TWICE DAILY (route: oral) Med Classific ation: Hematolog ical Agents Flonase Allergy Relief 50 mcg/actuati on nasal spray,suspe nsion 01-20 00:00: 00 Yes [id number] CONGESTION 1 spray TWICE DAILY 1 spray TWICE DAILY (route: nasal) Alternate Route: NOSTRIL - BOTH. Med Classific ation: Respirato ry Therapy Agents furosemide 40 mg tablet 01-20 00:00: 00 Yes [id number] FLUID RETENTION 2 tablet ONCE DAILY 2 tablet ONCE DAILY (route: oral) Med Classific ation: Cardiovas cular Therapy Agents hydrocodone 5 mg-acetamin ophen 325 mg tablet 01-20 00:00: 00 01-27 23:59 :00 No [id number] LEFT KNEE PAIN 1-2 tablet EVERY 4 HOURS 1-2 tablet EVERY 4 HOURS (route: oral) Med Classific ation: Analgesic , Anti-infl ammatory or Antipyret ic hydrocodone 5 mg-acetamin ophen 325 mg tablet 01-27 00:00: 00 Yes [id number] LEFT KNEE PAIN 1 tablet 3 TIMES DAILY 1 tablet 3 TIMES DAILY (route: oral) Med Classific ation: Analgesic , Anti-infl ammatory or Antipyret ic levothyroxi ne 100 mcg capsule 01-20 00:00: 00 Yes [id number] HYPOTHYROID ISM 1 capsule ONCE DAILY 1 capsule ONCE DAILY (route: oral) Med Classific ation: Endocrine melatonin 5 mg capsule 01-20 00:00: 00 Yes [id number] SLEEP 1-2 capsule AT BEDTIME 1-2 capsule AT BEDTIME (route: oral) Med Classific ation: Central Nervous System Agents metaxalone 800 mg tablet 01-18 00:00: 00 Yes [id number] MUSCLE SPASMS 1 tablet EVERY 8 HOURS 1 tablet EVERY 8 HOURS (route: oral) Med Classific ation: Locomotor System Miralax 17 gram/dose oral powder 01-20 00:00: 00 Yes [id number] CONSTIPATIO N 17 gram ONCE DAILY 17 gram ONCE DAILY (route: oral) Med Classific ation: Gastroint estinal Therapy Agents Ozempic 2 mg/dose (8 mg/3 mL) subcutaneou s pen injector 01-20 00:00: 00 Yes [id number] WEIGHT LOSS 2 mg WEEKLY 2 mg [...] WILL BE ESTABLISHED THAT MEETS ALL PATIENT'S MCC NEEDS AND COUNTER SIGNED BY PHYSICIAN. Goal [...] 2025-03-21 00:00:00 Outpatient NEW ADMISSION ANGI NAYLOR [facility] [id number]
[2025-03-16 16:45] LABS: Albumin Level 3.9 g/dL (3.5-5.1); Anion Gap 13 mmol/L (4-12); Blood Urea Nitrogen 19 mg/dL (7-17); Calcium 9.2 mg/dL (8.4-10.2); Carbon Dioxide 21 mmol/L (22-30); Chloride 102 mmol/L (98-107); Estimated Glomerular Filt Rate 49; Glucose 130 mg/dL (65-110); Potassium 3.6 mmol/L (3.4-5.0); Sodium 136 mmol/L (137-145)
[2025-03-16 17:46] LABS: Total Protein Urine Random < 5 mg/dL; Ur Ttl Prot Creatinine Ratio < 0.03 mg/mg (0-0.20)
== END 2025-03-16 15:20 | disposition home or self-care (01) ==
PROVIDERS: PCP Internal Medicine; Visit Provider Internal Medicine Nephrology
DX: N18.2 Chronic kidney disease, stage 2 (mild) (principal)
CPT/HCPCS: 36415; 80069; 82570; 84156